=== PATIENT | female | born 1940 | race Caucasian/White ===

== ENCOUNTER → 2016-08-21 | Outpatient (REF) | payer MEDICARE ==
[2016-08-21 20:29] LABS: FREE T4 0.67 NG/DL (0.76-1.46)
== END ==
LOC: M LABDRWAD 19:41
PROVIDERS: ATTEND Physician Assistant Medical
DX: E05.20 Thyrotoxicosis with toxic multinodular goiter without thyrotoxic crisis or storm (principal); Z79.01 Long term (current) use of anticoagulants

== ENCOUNTER → 2016-08-22 | Outpatient (REF) | payer MEDICARE ==
[2016-08-22 19:14] LABS: PERCENT SATURATION 7.1 % (13.2-37.4)
== END ==
LOC: M LAB REF 17:07
PROVIDERS: ATTEND Internal Medicine Nephrology
DX: Z90.6 Acquired absence of other parts of urinary tract (principal); D64.9 Anemia, unspecified; Z79.899 Other long term (current) drug therapy

== ENCOUNTER → 2016-08-25 | Outpatient (CLI) | payer MEDICARE ==
--- NOTE | 2016-08-25 13:47 | REP ---
RENAL ULTRASOUND: Real-time sonographic evaluation of the kidneys is performed. The kidneys are normal in size and echotexture, right kidney measuring 9.2 x 5.3 x 3.3 cm and the left kidney 8.3 x 4.6 x 4.1 cm. There is no hydronephrosis bilaterally. Vascular calcifications are seen in both kidneys. There is no renal mass identified. Incidental note is made of gallstones in the gallbladder. The common bile duct is mildly dilated at 9 mm. IMPRESSION: No hydronephrosis. Gallstones are seen in the gallbladder. The common bile duct is mildly dilated at 9 mm. Please correlate clinically. Signed by Rafy Alston MD 08/25/2016 05:02 P
== END ==
LOC: M RAD 12:37
PROVIDERS: ATTEND Internal Medicine Nephrology
DX: N18.3 Chronic kidney disease, stage 3 (moderate) (principal); E87.5 Hyperkalemia; K80.20 Calculus of gallbladder without cholecystitis without obstruction

== ENCOUNTER 2016-09-06 08:40 | Outpatient (CLI) | payer MEDICARE ==
[2016-09-06] MEDS ORDERED: IRON SUCROSE 25 MG in NS 50 ML IV ONE (09:15)
[2016-09-06] MEDS ORDERED: IRON SUCROSE 475 MG in NS 250 ML IV ONE (10:15)
== END 2016-09-06 13:45 | disposition home or self-care (01) ==
LOC: M INFU 08:40
PROVIDERS: ATTEND Internal Medicine Nephrology
DX: D50.9 Iron deficiency anemia, unspecified (principal)
CPT/HCPCS: 96365; 96366; J1756

== ENCOUNTER → 2016-09-25 | Outpatient (REF) | payer MEDICARE ==
[2016-09-25 14:04] LABS: FREE T4 1.48 NG/DL (0.76-1.46)
== END ==
LOC: M LABDRWAD 13:02
PROVIDERS: ATTEND Physician Assistant Medical
DX: E05.20 Thyrotoxicosis with toxic multinodular goiter without thyrotoxic crisis or storm (principal)

== ENCOUNTER → 2016-10-23 | Outpatient (REF) | payer MEDICARE ==
[2016-10-23 13:16] LABS: FREE T4 3.17 NG/DL (0.76-1.46)
== END ==
LOC: M LABDRWAD 12:26
PROVIDERS: ATTEND Physician Assistant Medical
DX: E05.20 Thyrotoxicosis with toxic multinodular goiter without thyrotoxic crisis or storm (principal)

== ENCOUNTER → 2016-11-30 | Outpatient (REF) | payer MEDICARE ==
[2016-11-30 12:39] LABS: MEAN CORPUSCULAR HEMOGLOBIN 28.5 pg (27.0-33.0); MEAN CORPUSCULAR HGB CONC 31.3 g/dl (32.0-36.5); MEAN CORPUSCULAR VOLUME 91.2 fl (80.0-96.0); PLATELET COUNT, AUTOMATED 203 k/mm3 (150-450); RED CELL DISTRIBUTION WIDTH 15.3 % (11.5-14.5); WHITE BLOOD COUNT 4.5 K/mm3 (4.0-10.0)
[2016-11-30 12:52] LABS: INR 3.34
[2016-11-30 13:00] LABS: BASOPHILS 1 % (0-4); EOSINOPHILS 5 % (0-5)
[2016-11-30 13:02] LABS: ALBUMIN 3.7 GM/DL (3.2-5.2); ALBUMIN/GLOBULIN RATIO 1.16 (1.00-1.93); BILIRUBIN,TOTAL 0.6 MG/DL (0.2-1.0); CALCIUM LEVEL 8.4 MG/DL (8.8-10.2); CREATININE FOR GFR 1.27 MG/DL (0.55-1.02); GLOMERULAR FILTRATION RATE 43.6 (>39); POTASSIUM SERUM 4.4 MEQ/L (3.5-5.1); TOTAL PROTEIN 6.9 GM/DL (6.4-8.2)
== END ==
LOC: M SFHCADAM 07:52
PROVIDERS: ATTEND Physician Assistant Medical
DX: I10 Essential (primary) hypertension (principal); E87.5 Hyperkalemia

== ENCOUNTER → 2016-12-22 | Outpatient (REF) | payer MEDICARE ==
[2016-12-22 14:54] LABS: FREE T4 2.13 NG/DL (0.76-1.46)
== END ==
LOC: M LABDRWAD 13:13
PROVIDERS: ATTEND Internal Medicine Endocrinology, Diabetes & Metabolism
DX: E05.20 Thyrotoxicosis with toxic multinodular goiter without thyrotoxic crisis or storm (principal)

== ENCOUNTER → 2017-03-07 | Outpatient (REF) | payer MEDICARE ==
[2017-03-07 14:34] LABS: FREE T4 1.55 NG/DL (0.76-1.46)
== END ==
LOC: M LAB REF 12:25
PROVIDERS: ATTEND Internal Medicine Endocrinology, Diabetes & Metabolism
DX: E05.20 Thyrotoxicosis with toxic multinodular goiter without thyrotoxic crisis or storm (principal)

== ENCOUNTER → 2017-05-23 | Outpatient (REF) | payer MEDICARE ==
[2017-05-23 13:47] LABS: FREE T4 1.08 NG/DL (0.76-1.46)
== END ==
LOC: M LABDRWAD 12:26
PROVIDERS: ATTEND Internal Medicine Endocrinology, Diabetes & Metabolism
DX: E05.20 Thyrotoxicosis with toxic multinodular goiter without thyrotoxic crisis or storm (principal); Z79.01 Long term (current) use of anticoagulants

== ENCOUNTER → 2017-05-23 | Outpatient (REF) | payer MEDICARE ==
[2017-05-23 12:49] LABS: INR 2.32
== END ==
LOC: M SFHCADAM 10:31
PROVIDERS: ATTEND Physician Assistant Medical
DX: Z79.01 Long term (current) use of anticoagulants (principal)

== ENCOUNTER 2017-06-06 10:54 | Inpatient (IN) | payer MEDICARE ==
[2017-06-06] MEDS: METOPROLOL 5 MG/5 ML VIAL IV ×6 (11:55→12:10)
[2017-06-06 11:57] LABS: BASO # 0.1 10^3/uL (0.0-0.2); BASO % 1.2 % (0.0-1.0); EOS # 0.1 10^3/uL (0.0-0.50); EOS % 1.9 % (0.0-3.0); IMMATURE GRANULOCYTE % 0.3 % (0-0); LYMPH # 1.1 10^3/uL (1.5-4.5); LYMPH % 15.7 % (24.0-44.0); MEAN CORPUSCULAR HEMOGLOBIN 31.5 pg (27.0-33.0); MEAN CORPUSCULAR HGB CONC 33.1 g/dl (32.0-36.5); MEAN CORPUSCULAR VOLUME 94.9 fl (80.0-96.0); MONO # 0.6 10^3/uL (0.0-0.8); MONO % 7.9 % (0.0-5.0); NEUTROPHILS # 5.1 10^3/uL (1.8-7.7); PLATELET COUNT, AUTOMATED 279 10^3/uL (150-450); RED CELL DISTRIBUTION WIDTH 15.9 % (11.5-14.5)
[2017-06-06 12:07] LABS: INR 2.09
[2017-06-06 12:22] LABS: LACTIC ACID SEPSIS PROTOCOL 1.5 MMOL/L (0.4-2.0)
[2017-06-06 12:25] LABS: ANION GAP 10 MEQ/L (8-16); BLOOD UREA NITROGEN 26 MG/DL (7-18); CALCIUM LEVEL 8.5 MG/DL (8.8-10.2); CARBON DIOXIDE LEVEL 20 MEQ/L (21-32); CHLORIDE LEVEL 110 MEQ/L (98-107); CREATININE FOR GFR 1.35 MG/DL (0.55-1.02); GLOMERULAR FILTRATION RATE 40.5 (>39); GLUCOSE, FASTING 126 MG/DL (83-110); POTASSIUM SERUM 4.4 MEQ/L (3.5-5.1); SODIUM LEVEL 140 MEQ/L (136-145)
[2017-06-06 12:27] LABS: ALBUMIN 3.7 GM/DL (3.2-5.2); ALBUMIN/GLOBULIN RATIO 1.06 (1.00-1.93); ALKALINE PHOSPHATASE 113 U/L (45-117); ALT/SGPT 20 U/L (12-78); AST/SGOT 23 U/L (7-37); BILIRUBIN,DIRECT 0.3 MG/DL (0.0-0.2); BILIRUBIN,TOTAL 0.7 MG/DL (0.2-1.0); TOTAL PROTEIN 7.2 GM/DL (6.4-8.2)
[2017-06-06] MEDS: SODIUM CHLORIDE 0.9% 1000 ML IV (12:30)
[2017-06-06] MEDS: METOPROLOL TART 25 MG TABLET PO (12:31)
[2017-06-06] MEDS ORDERED: ONDANSETRON 4MG/2ML VIAL (J2405) IV (13:45)
[2017-06-06] MEDS: DIGOXIN INJ 0.5 MG/2 ML AMP (J1160) IV (13:48)
[2017-06-06] MEDS ORDERED: SLF 3 ML SYR IV (16:00)
[2017-06-06] MEDS: DIGOXIN 0.25 MG TAB PO (16:20)
[2017-06-06] MEDS: SENOKOT S TAB PO (21:00)
[2017-06-06] MEDS: FERROUS SULFATE 325MG TAB PO (21:58)
[2017-06-06] MEDS: FUROSEMIDE 20 MG/2 ML VIAL (J1940) IV (21:58)
[2017-06-06] MEDS: SLF 3 ML SYR IV (21:59)
[2017-06-07 04:19] LABS: BASO # 0.1 10^3/uL (0.0-0.2); EOS # 0.2 10^3/uL (0.0-0.50); EOS % 3.4 % (0.0-3.0); IMMATURE GRANULOCYTE % 0.4 % (0-0); LYMPH # 1.8 10^3/uL (1.5-4.5); LYMPH % 26.2 % (24.0-44.0); MEAN CORPUSCULAR HEMOGLOBIN 30.9 pg (27.0-33.0); MEAN CORPUSCULAR HGB CONC 31.9 g/dl (32.0-36.5); MEAN CORPUSCULAR VOLUME 96.9 fl (80.0-96.0); MONO # 0.8 10^3/uL (0.0-0.8); MONO % 11.6 % (0.0-5.0); NEUTROPHILS # 3.9 10^3/uL (1.8-7.7); NEUTROPHILS % 57.4 % (36.0-66.0); PLATELET COUNT, AUTOMATED 264 10^3/uL (150-450); RED CELL DISTRIBUTION WIDTH 15.6 % (11.5-14.5); WHITE BLOOD COUNT 6.8 10^3/uL (4.0-10.0)
[2017-06-07 04:30] LABS: INR 1.95
[2017-06-07 04:58] LABS: ALBUMIN 3.4 GM/DL (3.2-5.2); ALBUMIN/GLOBULIN RATIO 1.13 (1.00-1.93); ALKALINE PHOSPHATASE 127 U/L (45-117); ALT/SGPT 23 U/L (12-78); ANION GAP 11 MEQ/L (8-16); AST/SGOT 27 U/L (7-37); BILIRUBIN,TOTAL 0.6 MG/DL (0.2-1.0); BLOOD UREA NITROGEN 26 MG/DL (7-18); CALCIUM LEVEL 7.8 MG/DL (8.8-10.2); CARBON DIOXIDE LEVEL 22 MEQ/L (21-32); CHLORIDE LEVEL 111 MEQ/L (98-107); CREATININE FOR GFR 1.25 MG/DL (0.55-1.02); GLOMERULAR FILTRATION RATE 44.2 (>39); GLUCOSE, FASTING 83 MG/DL (83-110); POTASSIUM SERUM 4.2 MEQ/L (3.5-5.1); SODIUM LEVEL 144 MEQ/L (136-145); TOTAL PROTEIN 6.4 GM/DL (6.4-8.2)
[2017-06-07 05:08] LABS: DIGOXIN LEVEL 1.5 NG/ML (0.5-2.0)
[2017-06-07] MEDS: SLF 3 ML SYR IV ×3 (06:00→21:42)
[2017-06-07] MEDS: METOPROLOL 5 MG/5 ML VIAL IV ×2 (09:14→09:31)
[2017-06-07] MEDS: DIGOXIN INJ 0.5 MG/2 ML AMP (J1160) IV (09:30)
[2017-06-07] MEDS: CYANOCOBALAMIN 500 MCG TAB PO (09:31)
[2017-06-07] MEDS: SENOKOT S TAB PO ×2 (09:31→17:09)
[2017-06-07] MEDS: METOPROLOL TART 50 MG TAB PO ×2 (11:02→21:42)
[2017-06-07] MEDS: FERROUS SULFATE 325MG TAB PO (21:41)
[2017-06-08] MEDS: SLF 3 ML SYR IV ×3 (05:16→20:44)
[2017-06-08 05:40] LABS: BASO # 0.1 10^3/uL (0.0-0.2); BASO % 1.2 % (0.0-1.0); EOS # 0.4 10^3/uL (0.0-0.50); EOS % 5.3 % (0.0-3.0); IMMATURE GRANULOCYTE % 0.3 % (0-0); LYMPH # 1.7 10^3/uL (1.5-4.5); LYMPH % 25.4 % (24.0-44.0); MEAN CORPUSCULAR HEMOGLOBIN 30.5 pg (27.0-33.0); MEAN CORPUSCULAR HGB CONC 31.6 g/dl (32.0-36.5); MEAN CORPUSCULAR VOLUME 96.7 fl (80.0-96.0); MONO # 0.9 10^3/uL (0.0-0.8); MONO % 13.5 % (0.0-5.0); NEUTROPHILS # 3.6 10^3/uL (1.8-7.7); NEUTROPHILS % 54.3 % (36.0-66.0); PLATELET COUNT, AUTOMATED 262 10^3/uL (150-450); RED CELL DISTRIBUTION WIDTH 15.6 % (11.5-14.5); WHITE BLOOD COUNT 6.7 10^3/uL (4.0-10.0)
[2017-06-08 05:59] LABS: INR 1.88
[2017-06-08 06:03] LABS: ALBUMIN 3.2 GM/DL (3.2-5.2); ALBUMIN/GLOBULIN RATIO 0.91 (1.00-1.93); ALKALINE PHOSPHATASE 109 U/L (45-117); ALT/SGPT 19 U/L (12-78); ANION GAP 7 MEQ/L (8-16); AST/SGOT 17 U/L (7-37); BILIRUBIN,TOTAL 0.5 MG/DL (0.2-1.0); BLOOD UREA NITROGEN 20 MG/DL (7-18); CARBON DIOXIDE LEVEL 23 MEQ/L (21-32); CHLORIDE LEVEL 112 MEQ/L (98-107); CREATININE FOR GFR 1.07 MG/DL (0.55-1.02); GLOMERULAR FILTRATION RATE 52.9 (>39); GLUCOSE, FASTING 84 MG/DL (83-110); POTASSIUM SERUM 4.1 MEQ/L (3.5-5.1); SODIUM LEVEL 142 MEQ/L (136-145); TOTAL PROTEIN 6.7 GM/DL (6.4-8.2)
[2017-06-08] MEDS: CYANOCOBALAMIN 500 MCG TAB PO (08:51)
[2017-06-08] MEDS: METOPROLOL TART 50 MG TAB PO ×3 (08:51→20:43)
[2017-06-08] MEDS: SENOKOT S TAB PO ×2 (08:53→20:44)
[2017-06-08] MEDS: PNEUMOCOCCAL VACCINE 0.5ML SYRINGE(90732) PNEUMOVAX 23 IM (08:53)
[2017-06-08] MEDS: DIGOXIN 0.125 MG TAB PO (14:44)
[2017-06-08] MEDS: WARFARIN SOD 5 MG TAB PO (16:12)
[2017-06-08] MEDS: FERROUS SULFATE 325MG TAB PO (20:43)
[2017-06-09 05:09] LABS: BASO # 0.1 10^3/uL (0.0-0.2); BASO % 0.7 % (0.0-1.0); EOS # 0.1 10^3/uL (0.0-0.50); EOS % 1.8 % (0.0-3.0); IMMATURE GRANULOCYTE % 0.3 % (0-0); LYMPH # 2.3 10^3/uL (1.5-4.5); MEAN CORPUSCULAR HGB CONC 32.2 g/dl (32.0-36.5); MONO # 0.8 10^3/uL (0.0-0.8); MONO % 10.7 % (0.0-5.0); NEUTROPHILS # 3.9 10^3/uL (1.8-7.7); NEUTROPHILS % 54.5 % (36.0-66.0); PLATELET COUNT, AUTOMATED 252 10^3/uL (150-450); RED CELL DISTRIBUTION WIDTH 15.4 % (11.5-14.5); WHITE BLOOD COUNT 7.2 10^3/uL (4.0-10.0)
[2017-06-09 05:20] LABS: INR 1.96
[2017-06-09 05:23] LABS: ALBUMIN/GLOBULIN RATIO 0.88 (1.00-1.93); ALKALINE PHOSPHATASE 94 U/L (45-117); ALT/SGPT 15 U/L (12-78); ANION GAP 8 MEQ/L (8-16); AST/SGOT 13 U/L (7-37); BILIRUBIN,TOTAL 0.7 MG/DL (0.2-1.0); BLOOD UREA NITROGEN 16 MG/DL (7-18); CALCIUM LEVEL 7.6 MG/DL (8.8-10.2); CARBON DIOXIDE LEVEL 22 MEQ/L (21-32); CHLORIDE LEVEL 111 MEQ/L (98-107); CREATININE FOR GFR 1.01 MG/DL (0.55-1.02); GLOMERULAR FILTRATION RATE 56.6 (>39); GLUCOSE, FASTING 89 MG/DL (83-110); SODIUM LEVEL 141 MEQ/L (136-145); TOTAL PROTEIN 6.4 GM/DL (6.4-8.2)
[2017-06-09] MEDS: SLF 3 ML SYR IV ×3 (06:00→20:53)
[2017-06-09] MEDS: CYANOCOBALAMIN 500 MCG TAB PO (08:55)
[2017-06-09] MEDS: METOPROLOL TART 50 MG TAB PO ×3 (08:55→20:52)
[2017-06-09] MEDS: DIGOXIN 0.125 MG TAB PO (08:55)
[2017-06-09] MEDS: SENOKOT S TAB PO ×2 (08:56→20:53)
[2017-06-09 09:57] LABS: DIGOXIN LEVEL 1.5 NG/ML (0.5-2.0); FREE T4 1.34 NG/DL (0.76-1.46)
[2017-06-09] MEDS: WARFARIN SOD 5 MG TAB PO (16:55)
[2017-06-09] MEDS: FERROUS SULFATE 325MG TAB PO (20:53)
[2017-06-10 04:56] LABS: BASO % 0.7 % (0.0-1.0); EOS # 0.2 10^3/uL (0.0-0.50); EOS % 3.4 % (0.0-3.0); IMMATURE GRANULOCYTE % 0.4 % (0-0); LYMPH # 1.9 10^3/uL (1.5-4.5); LYMPH % 32.7 % (24.0-44.0); MEAN CORPUSCULAR HGB CONC 31.9 g/dl (32.0-36.5); MONO # 0.7 10^3/uL (0.0-0.8); MONO % 12.2 % (0.0-5.0); NEUTROPHILS # 2.9 10^3/uL (1.8-7.7); NEUTROPHILS % 50.6 % (36.0-66.0); PLATELET COUNT, AUTOMATED 267 10^3/uL (150-450); RED CELL DISTRIBUTION WIDTH 15.7 % (11.5-14.5); WHITE BLOOD COUNT 5.7 10^3/uL (4.0-10.0)
[2017-06-10 05:06] LABS: INR 1.96
[2017-06-10 05:17] LABS: ALBUMIN/GLOBULIN RATIO 0.86 (1.00-1.93); ALKALINE PHOSPHATASE 90 U/L (45-117); ALT/SGPT 13 U/L (12-78); ANION GAP 9 MEQ/L (8-16); AST/SGOT 11 U/L (7-37); BILIRUBIN,TOTAL 0.5 MG/DL (0.2-1.0); BLOOD UREA NITROGEN 22 MG/DL (7-18); CALCIUM LEVEL 7.8 MG/DL (8.8-10.2); CARBON DIOXIDE LEVEL 21 MEQ/L (21-32); CHLORIDE LEVEL 111 MEQ/L (98-107); GLOMERULAR FILTRATION RATE 57.2 (>39); GLUCOSE, FASTING 85 MG/DL (83-110); POTASSIUM SERUM 4.1 MEQ/L (3.5-5.1); SODIUM LEVEL 141 MEQ/L (136-145); TOTAL PROTEIN 6.5 GM/DL (6.4-8.2)
[2017-06-10] MEDS: SLF 3 ML SYR IV ×2 (05:40→14:00)
[2017-06-10] MEDS: DIGOXIN 0.125 MG TAB PO (08:36)
[2017-06-10] MEDS: CYANOCOBALAMIN 500 MCG TAB PO (08:37)
[2017-06-10] MEDS: METOPROLOL TART 50 MG TAB PO (08:37)
[2017-06-10] MEDS: SENOKOT S TAB PO (08:37)
[2017-06-12] MEDS ORDERED: WARFARIN SOD 2.5 MG TAB PO (17:00)
== END 2017-06-10 14:30 | disposition home or self-care (01) | DRG 309 ==
LOC: M ED 10:54 → M ED INP 13:43 → M PCU 15:20
DX: I48.91 Unspecified atrial fibrillation (principal); I13.0 Hypertensive heart and chronic kidney disease with heart failure and stage 1 through stage 4 chronic kidney disease, or unspecified chronic kidney disease; I50.813 Acute on chronic right heart failure; E05.90 Thyrotoxicosis, unspecified without thyrotoxic crisis or storm; N18.3 Chronic kidney disease, stage 3 (moderate); Z95.2 Presence of prosthetic heart valve; Z85.51 Personal history of malignant neoplasm of bladder; Z98.41 Cataract extraction status, right eye; Z98.42 Cataract extraction status, left eye; Z90.710 Acquired absence of both cervix and uterus; Z79.01 Long term (current) use of anticoagulants; Z79.899 Other long term (current) drug therapy

== ENCOUNTER 2017-07-12 12:58 | Inpatient (IN) | payer OTHER, MEDICARE ==
[2017-07-12] MEDS ORDERED: ACETAMINOPHEN TAB 650MG DOSE (2X325MG) PO (13:30)
[2017-07-12 15:34] LABS: BASO # 0.1 10^3/uL (0.0-0.2); BASO % 0.8 % (0.0-1.0); EOS % 0.1 % (0.0-3.0); HEMATOCRIT 39.1 % (36.0-47.0); HEMOGLOBIN 12.3 g/dl (12.0-16.0); IMMATURE GRANULOCYTE # 0.2 10^3/uL (0-0); IMMATURE GRANULOCYTE % 1.5 % (0-0); LYMPH # 1.3 10^3/uL (1.5-4.5); LYMPH % 12.4 % (24.0-44.0); MEAN CORPUSCULAR HEMOGLOBIN 30.7 pg (27.0-33.0); MEAN CORPUSCULAR HGB CONC 31.5 g/dl (32.0-36.5); MEAN CORPUSCULAR VOLUME 97.5 fl (80.0-96.0); MONO # 0.5 10^3/uL (0.0-0.8); MONO % 4.7 % (0.0-5.0); NEUTROPHILS # 8.2 10^3/uL (1.8-7.7); NEUTROPHILS % 80.5 % (36.0-66.0); PLATELET COUNT, AUTOMATED 371 10^3/uL (150-450); RED BLOOD COUNT 4.01 10^6/uL (4.00-5.40); RED CELL DISTRIBUTION WIDTH 14.6 % (11.5-14.5); WHITE BLOOD COUNT 10.2 10^3/uL (4.0-10.0)
[2017-07-12 15:44] LABS: INR 3.08; PROTHROMBIN TIME 33.2 SECONDS (12.4-14.5)
[2017-07-12 15:58] LABS: ALBUMIN 3.5 GM/DL (3.2-5.2); ALKALINE PHOSPHATASE 137 U/L (45-117); ALT/SGPT 15 U/L (12-78); ANION GAP 10 MEQ/L (8-16); AST/SGOT 22 U/L (7-37); BILIRUBIN,TOTAL 0.5 MG/DL (0.2-1.0); BLOOD UREA NITROGEN 34 MG/DL (7-18); CALCIUM LEVEL 8.4 MG/DL (8.8-10.2); CARBON DIOXIDE LEVEL 22 MEQ/L (21-32); CHLORIDE LEVEL 108 MEQ/L (98-107); CPK CREATINE PHOSPHOKINASE 65 U/L (26-192); CREATININE FOR GFR 1.54 MG/DL (0.55-1.02); GLOMERULAR FILTRATION RATE 34.8 (>39); GLUCOSE, FASTING 132 MG/DL (70-100); MAGNESIUM LEVEL 1.8 MG/DL (1.8-2.4); SODIUM LEVEL 140 MEQ/L (136-145); TROPONIN I < 0.02 NG/ML (< 0.10)
[2017-07-12 15:59] LABS: CK-MB VALUE MASS 1.3 NG/ML (0.0-3.6)
[2017-07-12 16:00] LABS: POTASSIUM SERUM 5.3 MEQ/L (3.5-5.1)
[2017-07-12] MEDS: AMOXICILLIN 500 MG CAP PO ×2 (16:00→20:39)
[2017-07-12 16:02] LABS: FREE T4 1.39 NG/DL (0.76-1.46)
[2017-07-12] MEDS: FUROSEMIDE 20 MG TAB PO (16:17)
[2017-07-12] MEDS: FERROUS SULFATE 325MG TAB PO (16:17)
[2017-07-12] MEDS: METOPROLOL TART 50 MG TAB PO ×2 (16:18→20:39)
[2017-07-12] MEDS: DIGOXIN INJ 0.5 MG/2 ML AMP (J1160) IV (16:18)
[2017-07-12] MEDS ORDERED: ALBUTEROL SULFATE 2.5 MG/0.5 ML INH NEB SOLN INH (16:30)
[2017-07-12] MEDS ORDERED: DOXYCYCLINE HYCLATE 100 MG in D5W MINI-BAG PLUS 100 ML IV (16:45)
[2017-07-12] MEDS ORDERED: WARFARIN SOD 2.5 MG TAB PO (17:00)
[2017-07-12 17:24] LABS: NT-PRO BNP 17714 PG/ML (<450)
[2017-07-12] MEDS: FUROSEMIDE 40 MG/4 ML VIAL (J1940) IV ×2 (18:01→23:32)
[2017-07-12] MEDS: WARFARIN SOD 2.5 MG TAB PO (18:01)
[2017-07-12] MEDS: DOXYCYCLINE HYCLATE 100 MG in D5W MINI-BAG PLUS 100 ML IV (19:49)
[2017-07-12] MEDS: ALBUTEROL SULFATE 2.5 MG/0.5 ML INH NEB SOLN INH (20:57)
[2017-07-12] MEDS: CEFTRIAXONE SOD 2 GM in APPROPRIATE DILUENT 1 EA IV (21:08)
[2017-07-12 21:57] LABS: CK-MB VALUE MASS 1.3 NG/ML (0.0-3.6); CPK CREATINE PHOSPHOKINASE 72 U/L (26-192); TROPONIN I < 0.02 NG/ML (< 0.10)
[2017-07-13] MEDS: DOXYCYCLINE HYCLATE 100 MG in D5W MINI-BAG PLUS 100 ML IV ×2 (06:13→18:42)
[2017-07-13] MEDS: FUROSEMIDE 40 MG/4 ML VIAL (J1940) IV (06:13)
[2017-07-13 06:22] LABS: CK-MB VALUE MASS 1.5 NG/ML (0.0-3.6); CPK CREATINE PHOSPHOKINASE 71 U/L (26-192); MB/CK RELATIVE INDEX 2.11 (< OR =4); TROPONIN I < 0.02 NG/ML (< 0.10)
[2017-07-13] MEDS: ALBUTEROL SULFATE 2.5 MG/0.5 ML INH NEB SOLN INH ×4 (07:25→20:04)
[2017-07-13 07:50] LABS: HEMATOCRIT 38.2 % (36.0-47.0); HEMOGLOBIN 12.2 g/dl (12.0-16.0); MEAN CORPUSCULAR HEMOGLOBIN 30.2 pg (27.0-33.0); MEAN CORPUSCULAR HGB CONC 31.9 g/dl (32.0-36.5); MEAN CORPUSCULAR VOLUME 94.6 fl (80.0-96.0); PLATELET COUNT, AUTOMATED 363 10^3/uL (150-450); RED BLOOD COUNT 4.04 10^6/uL (4.00-5.40); RED CELL DISTRIBUTION WIDTH 14.4 % (11.5-14.5); WHITE BLOOD COUNT 10.4 10^3/uL (4.0-10.0)
[2017-07-13 08:00] LABS: ALBUMIN 3.3 GM/DL (3.2-5.2); ALBUMIN/GLOBULIN RATIO 0.85 (1.00-1.93); ALKALINE PHOSPHATASE 132 U/L (45-117); ALT/SGPT 14 U/L (12-78); ANION GAP 11 MEQ/L (8-16); AST/SGOT 19 U/L (7-37); BILIRUBIN,TOTAL 0.4 MG/DL (0.2-1.0); BLOOD UREA NITROGEN 31 MG/DL (7-18); CALCIUM LEVEL 8.7 MG/DL (8.8-10.2); CARBON DIOXIDE LEVEL 25 MEQ/L (21-32); CHLORIDE LEVEL 104 MEQ/L (98-107); CREATININE FOR GFR 1.51 MG/DL (0.55-1.02); GLOMERULAR FILTRATION RATE 35.6 (>39); GLUCOSE, FASTING 92 MG/DL (70-100); POTASSIUM SERUM 3.3 MEQ/L (3.5-5.1); SODIUM LEVEL 140 MEQ/L (136-145); TOTAL PROTEIN 7.2 GM/DL (6.4-8.2)
[2017-07-13] MEDS: CYANOCOBALAMIN 500 MCG TAB PO (08:42)
[2017-07-13] MEDS: CALCITRIOL 0.25 MCG CAP (S0169) PO (08:42)
[2017-07-13] MEDS: DIGOXIN 0.125 MG TAB PO (08:43)
[2017-07-13] MEDS: FERROUS SULFATE 325MG TAB PO (08:43)
[2017-07-13] MEDS: METOPROLOL TART 50 MG TAB PO ×3 (08:44→21:00)
[2017-07-13 11:52] LABS: INR 2.89; PROTHROMBIN TIME 31.5 SECONDS (12.4-14.5)
[2017-07-13] MEDS: WARFARIN SOD 2.5 MG TAB PO (16:21)
[2017-07-13] MEDS ORDERED: WARFARIN SOD 5 MG TAB PO (17:00)
[2017-07-13] MEDS: POTASSIUM CHLORIDE 10 MEQ SR TABLET PO ×2 (18:42→22:14)
[2017-07-13] MEDS: CEFTRIAXONE SOD 2 GM in APPROPRIATE DILUENT 1 EA IV (19:57)
[2017-07-13] MEDS: METOPROLOL TART 25 MG TABLET PO (23:02)
[2017-07-14 04:23] LABS: HEMATOCRIT 37.7 % (36.0-47.0); HEMOGLOBIN 12.2 g/dl (12.0-16.0); MEAN CORPUSCULAR HEMOGLOBIN 30.7 pg (27.0-33.0); MEAN CORPUSCULAR HGB CONC 32.4 g/dl (32.0-36.5); PLATELET COUNT, AUTOMATED 323 10^3/uL (150-450); RED BLOOD COUNT 3.97 10^6/uL (4.00-5.40); RED CELL DISTRIBUTION WIDTH 14.5 % (11.5-14.5); WHITE BLOOD COUNT 8.9 10^3/uL (4.0-10.0)
[2017-07-14 04:38] LABS: INR 3.07; PROTHROMBIN TIME 33.1 SECONDS (12.4-14.5)
[2017-07-14 04:45] LABS: ALBUMIN 3.1 GM/DL (3.2-5.2); ALBUMIN/GLOBULIN RATIO 0.84 (1.00-1.93); ALKALINE PHOSPHATASE 110 U/L (45-117); ALT/SGPT 14 U/L (12-78); ANION GAP 6 MEQ/L (8-16); AST/SGOT 18 U/L (7-37); BILIRUBIN,TOTAL 0.4 MG/DL (0.2-1.0); BLOOD UREA NITROGEN 33 MG/DL (7-18); CALCIUM LEVEL 8.1 MG/DL (8.8-10.2); CARBON DIOXIDE LEVEL 27 MEQ/L (21-32); CHLORIDE LEVEL 109 MEQ/L (98-107); CREATININE FOR GFR 1.47 MG/DL (0.55-1.02); GLOMERULAR FILTRATION RATE 36.7 (>39); GLUCOSE, FASTING 101 MG/DL (70-100); POTASSIUM SERUM 4.3 MEQ/L (3.5-5.1); SODIUM LEVEL 142 MEQ/L (136-145); TOTAL PROTEIN 6.8 GM/DL (6.4-8.2)
[2017-07-14] MEDS: DOXYCYCLINE HYCLATE 100 MG in D5W MINI-BAG PLUS 100 ML IV ×2 (06:18→19:00)
[2017-07-14] MEDS: ALBUTEROL SULFATE 2.5 MG/0.5 ML INH NEB SOLN INH ×5 (08:01→21:19)
[2017-07-14] MEDS: CALCITRIOL 0.25 MCG CAP (S0169) PO (09:59)
[2017-07-14] MEDS: CYANOCOBALAMIN 500 MCG TAB PO (09:59)
[2017-07-14] MEDS: METOPROLOL TART 50 MG TAB PO ×3 (09:59→18:44)
[2017-07-14] MEDS: DIGOXIN 0.125 MG TAB PO (09:59)
[2017-07-14] MEDS: FERROUS SULFATE 325MG TAB PO (09:59)
[2017-07-14] MEDS: FUROSEMIDE 20 MG TAB PO (10:00)
[2017-07-14] MEDS ORDERED: SLF 3 ML SYR IV (11:45)
[2017-07-14] MEDS: SLF 3 ML SYR IV ×2 (14:00→20:08)
[2017-07-14] MEDS ORDERED: AMIODARONE 200 MG TAB (PACERONE) PO (16:00)
[2017-07-14] MEDS: AMIODARONE 200 MG TAB (PACERONE) PO (16:08)
[2017-07-14] MEDS: CEFTRIAXONE SOD 2 GM in APPROPRIATE DILUENT 1 EA IV (20:05)
[2017-07-15 03:40] LABS: HEMATOCRIT 35.6 % (36.0-47.0); HEMOGLOBIN 11.3 g/dl (12.0-16.0); MEAN CORPUSCULAR HEMOGLOBIN 30.5 pg (27.0-33.0); MEAN CORPUSCULAR HGB CONC 31.7 g/dl (32.0-36.5); MEAN CORPUSCULAR VOLUME 96.2 fl (80.0-96.0); PLATELET COUNT, AUTOMATED 295 10^3/uL (150-450); WHITE BLOOD COUNT 8.1 10^3/uL (4.0-10.0)
[2017-07-15 03:57] LABS: ANION GAP 8 MEQ/L (8-16); BLOOD UREA NITROGEN 35 MG/DL (7-18); CARBON DIOXIDE LEVEL 23 MEQ/L (21-32); CHLORIDE LEVEL 110 MEQ/L (98-107); CREATININE FOR GFR 1.34 MG/DL (0.55-1.02); GLOMERULAR FILTRATION RATE 40.8 (>39); GLUCOSE, FASTING 107 MG/DL (70-100); MAGNESIUM LEVEL 1.7 MG/DL (1.8-2.4); SODIUM LEVEL 141 MEQ/L (136-145)
[2017-07-15] MEDS: DOXYCYCLINE HYCLATE 100 MG in D5W MINI-BAG PLUS 100 ML IV (06:22)
[2017-07-15] MEDS: SLF 3 ML SYR IV ×3 (06:22→22:35)
[2017-07-15] MEDS: ALBUTEROL SULFATE 2.5 MG/0.5 ML INH NEB SOLN INH ×4 (06:32→20:00)
[2017-07-15] MEDS: FERROUS SULFATE 325MG TAB PO (09:34)
[2017-07-15] MEDS: CYANOCOBALAMIN 500 MCG TAB PO (09:34)
[2017-07-15] MEDS: CALCITRIOL 0.25 MCG CAP (S0169) PO (09:34)
[2017-07-15] MEDS: AMIODARONE 200 MG TAB (PACERONE) PO (09:34)
[2017-07-15] MEDS: FUROSEMIDE 20 MG TAB PO (09:34)
[2017-07-15] MEDS: METOPROLOL TART 50 MG TAB PO ×3 (09:35→20:45)
[2017-07-15 11:06] LABS: INR 3.04; PROTHROMBIN TIME 32.8 SECONDS (12.4-14.5)
[2017-07-15] MEDS: WARFARIN SOD 2.5 MG TAB PO (17:00)
[2017-07-15] MEDS: MAG SULF 1GM/100ML (MAG RUN) 1 GM in APPROPRIATE DILUENT 1 EA IV (20:45)
[2017-07-15] MEDS: DOXYCYCLINE HYCLATE 100 MG TAB PO (22:35)
[2017-07-16 05:19] LABS: HEMATOCRIT 37.3 % (36.0-47.0); HEMOGLOBIN 11.9 g/dl (12.0-16.0); MEAN CORPUSCULAR HEMOGLOBIN 30.4 pg (27.0-33.0); MEAN CORPUSCULAR HGB CONC 31.9 g/dl (32.0-36.5); MEAN CORPUSCULAR VOLUME 95.4 fl (80.0-96.0); PLATELET COUNT, AUTOMATED 313 10^3/uL (150-450); RED BLOOD COUNT 3.91 10^6/uL (4.00-5.40); RED CELL DISTRIBUTION WIDTH 15.2 % (11.5-14.5); WHITE BLOOD COUNT 7.2 10^3/uL (4.0-10.0)
[2017-07-16] MEDS: SLF 3 ML SYR IV ×3 (05:29→20:49)
[2017-07-16 05:45] LABS: ANION GAP 8 MEQ/L (8-16); BLOOD UREA NITROGEN 34 MG/DL (7-18); CALCIUM LEVEL 8.3 MG/DL (8.8-10.2); CARBON DIOXIDE LEVEL 25 MEQ/L (21-32); CHLORIDE LEVEL 108 MEQ/L (98-107); CREATININE FOR GFR 1.11 MG/DL (0.55-1.02); FREE T4 1.07 NG/DL (0.76-1.46); GLOMERULAR FILTRATION RATE 50.7 (>39); GLUCOSE, FASTING 93 MG/DL (70-100); MAGNESIUM LEVEL 2.1 MG/DL (1.8-2.4); POTASSIUM SERUM 3.8 MEQ/L (3.5-5.1); SODIUM LEVEL 141 MEQ/L (136-145)
[2017-07-16] MEDS: ALBUTEROL SULFATE 2.5 MG/0.5 ML INH NEB SOLN INH ×4 (07:12→20:00)
[2017-07-16] MEDS: CALCITRIOL 0.25 MCG CAP (S0169) PO (08:47)
[2017-07-16] MEDS: FERROUS SULFATE 325MG TAB PO (08:47)
[2017-07-16] MEDS: METOPROLOL TART 50 MG TAB PO ×3 (08:48→20:45)
[2017-07-16] MEDS: FUROSEMIDE 20 MG TAB PO (08:48)
[2017-07-16] MEDS: AMIODARONE 200 MG TAB (PACERONE) PO (08:48)
[2017-07-16] MEDS: DOXYCYCLINE HYCLATE 100 MG TAB PO ×2 (08:48→20:46)
[2017-07-16] MEDS: CYANOCOBALAMIN 500 MCG TAB PO (08:48)
[2017-07-16] MEDS: WARFARIN SOD 2.5 MG TAB PO (16:31)
[2017-07-17] MEDS: SLF 3 ML SYR IV ×3 (06:04→21:13)
[2017-07-17 06:19] LABS: HEMATOCRIT 36.3 % (36.0-47.0); HEMOGLOBIN 11.5 g/dl (12.0-16.0); MEAN CORPUSCULAR HEMOGLOBIN 30.7 pg (27.0-33.0); MEAN CORPUSCULAR HGB CONC 31.7 g/dl (32.0-36.5); MEAN CORPUSCULAR VOLUME 97.1 fl (80.0-96.0); PLATELET COUNT, AUTOMATED 282 10^3/uL (150-450); RED BLOOD COUNT 3.74 10^6/uL (4.00-5.40); RED CELL DISTRIBUTION WIDTH 15.1 % (11.5-14.5); WHITE BLOOD COUNT 6.4 10^3/uL (4.0-10.0)
[2017-07-17 06:30] LABS: INR 1.89; PROTHROMBIN TIME 22.3 SECONDS (12.4-14.5)
[2017-07-17 06:32] LABS: ANION GAP 6 MEQ/L (8-16); BLOOD UREA NITROGEN 36 MG/DL (7-18); CALCIUM LEVEL 8.3 MG/DL (8.8-10.2); CARBON DIOXIDE LEVEL 25 MEQ/L (21-32); CHLORIDE LEVEL 109 MEQ/L (98-107); CREATININE FOR GFR 1.25 MG/DL (0.55-1.30); GLOMERULAR FILTRATION RATE 44.2 (>39); GLUCOSE, FASTING 88 MG/DL (70-100); POTASSIUM SERUM 3.9 MEQ/L (3.5-5.1); SODIUM LEVEL 140 MEQ/L (136-145)
[2017-07-17] MEDS: ALBUTEROL SULFATE 2.5 MG/0.5 ML INH NEB SOLN INH ×4 (08:00→19:46)
[2017-07-17] MEDS: CALCITRIOL 0.25 MCG CAP (S0169) PO (09:14)
[2017-07-17] MEDS: DOXYCYCLINE HYCLATE 100 MG TAB PO ×2 (09:14→21:13)
[2017-07-17] MEDS: CYANOCOBALAMIN 500 MCG TAB PO (09:14)
[2017-07-17] MEDS: FUROSEMIDE 20 MG TAB PO (09:15)
[2017-07-17] MEDS: AMIODARONE 200 MG TAB (PACERONE) PO (09:15)
[2017-07-17] MEDS: FERROUS SULFATE 325MG TAB PO (09:15)
[2017-07-17] MEDS: METOPROLOL TART 50 MG TAB PO ×2 (09:18→16:00)
[2017-07-17] MEDS: WARFARIN SOD 5 MG TAB PO (17:04)
[2017-07-17] MEDS: DIGOXIN 0.25 MG TAB PO (17:06)
[2017-07-17] MEDS: METOPROLOL TART 25 MG TABLET PO ×2 (19:31→23:56)
[2017-07-18 05:59] LABS: HEMATOCRIT 39.7 % (36.0-47.0); HEMOGLOBIN 11.9 g/dl (12.0-16.0); MEAN CORPUSCULAR HEMOGLOBIN 30.7 pg (27.0-33.0); MEAN CORPUSCULAR VOLUME 102.6 fl (80.0-96.0); PLATELET COUNT, AUTOMATED 250 10^3/uL (150-450); RED BLOOD COUNT 3.87 10^6/uL (4.00-5.40); RED CELL DISTRIBUTION WIDTH 15.3 % (11.5-14.5); WHITE BLOOD COUNT 6.2 10^3/uL (4.0-10.0)
[2017-07-18 06:10] LABS: INR 1.67; PROTHROMBIN TIME 20.2 SECONDS (12.4-14.5)
[2017-07-18] MEDS: METOPROLOL TART 25 MG TABLET PO ×3 (06:20→18:00)
[2017-07-18] MEDS: SLF 3 ML SYR IV ×3 (06:20→21:06)
[2017-07-18 06:38] LABS: ANION GAP 7 MEQ/L (8-16); BLOOD UREA NITROGEN 41 MG/DL (7-18); CALCIUM LEVEL 8.2 MG/DL (8.8-10.2); CARBON DIOXIDE LEVEL 25 MEQ/L (21-32); CHLORIDE LEVEL 110 MEQ/L (98-107); DIGOXIN LEVEL 1.3 NG/ML (0.5-2.0); FREE T3 2.6 PG/ML (2.2-4.0); FREE T4 1.05 NG/DL (0.76-1.46); GLOMERULAR FILTRATION RATE 46.4 (>39); GLUCOSE, FASTING 98 MG/DL (70-100); POTASSIUM SERUM 4.4 MEQ/L (3.5-5.1); SODIUM LEVEL 142 MEQ/L (136-145)
[2017-07-18] MEDS: ALBUTEROL SULFATE 2.5 MG/0.5 ML INH NEB SOLN INH ×4 (08:24→21:16)
[2017-07-18] MEDS: CALCITRIOL 0.25 MCG CAP (S0169) PO (09:31)
[2017-07-18] MEDS: FUROSEMIDE 20 MG TAB PO (09:32)
[2017-07-18] MEDS: CYANOCOBALAMIN 500 MCG TAB PO (09:32)
[2017-07-18] MEDS: DIGOXIN 0.125 MG TAB PO (09:32)
[2017-07-18] MEDS: DOXYCYCLINE HYCLATE 100 MG TAB PO ×2 (09:32→21:05)
[2017-07-18] MEDS: FERROUS SULFATE 325MG TAB PO (09:32)
[2017-07-18] MEDS: WARFARIN SOD 5 MG TAB PO (16:27)
[2017-07-19 05:46] LABS: HEMATOCRIT 37.1 % (36.0-47.0); HEMOGLOBIN 11.8 g/dl (12.0-16.0); MEAN CORPUSCULAR HEMOGLOBIN 30.9 pg (27.0-33.0); MEAN CORPUSCULAR HGB CONC 31.8 g/dl (32.0-36.5); MEAN CORPUSCULAR VOLUME 97.1 fl (80.0-96.0); PLATELET COUNT, AUTOMATED 252 10^3/uL (150-450); RED BLOOD COUNT 3.82 10^6/uL (4.00-5.40); RED CELL DISTRIBUTION WIDTH 15.1 % (11.5-14.5); WHITE BLOOD COUNT 5.7 10^3/uL (4.0-10.0)
[2017-07-19] MEDS: METOPROLOL TART 25 MG TABLET PO ×2 (05:49)
[2017-07-19] MEDS: SLF 3 ML SYR IV (05:49)
[2017-07-19 06:00] LABS: INR 1.73; PROTHROMBIN TIME 20.7 SECONDS (12.4-14.5)
[2017-07-19 06:08] LABS: ANION GAP 6 MEQ/L (8-16); BLOOD UREA NITROGEN 37 MG/DL (7-18); CALCIUM LEVEL 8.5 MG/DL (8.8-10.2); CARBON DIOXIDE LEVEL 26 MEQ/L (21-32); CHLORIDE LEVEL 110 MEQ/L (98-107); GLOMERULAR FILTRATION RATE 51.3 (>39); GLUCOSE, FASTING 95 MG/DL (70-100); POTASSIUM SERUM 4.2 MEQ/L (3.5-5.1); SODIUM LEVEL 142 MEQ/L (136-145)
[2017-07-19] MEDS: ALBUTEROL SULFATE 2.5 MG/0.5 ML INH NEB SOLN INH ×2 (08:00→11:14)
[2017-07-19] MEDS: CALCITRIOL 0.25 MCG CAP (S0169) PO (08:50)
[2017-07-19] MEDS: DIGOXIN 0.125 MG TAB PO (08:50)
[2017-07-19] MEDS: FERROUS SULFATE 325MG TAB PO (08:50)
[2017-07-19] MEDS: FUROSEMIDE 20 MG TAB PO (08:50)
[2017-07-19] MEDS: DOXYCYCLINE HYCLATE 100 MG TAB PO (08:51)
[2017-07-19] MEDS: CYANOCOBALAMIN 500 MCG TAB PO (08:51)
[2017-07-19] MEDS ORDERED: WARFARIN SOD 2.5 MG TAB PO (17:00)
== END 2017-07-19 11:50 | disposition home or self-care (01) | DRG 308 ==
LOC: M ED 12:58 → M ED INP 13:17 → M PCU 17:18
DX: I48.1 Persistent atrial fibrillation (principal); J18.9 Pneumonia, unspecified organism; I50.22 Chronic systolic (congestive) heart failure; I11.0 Hypertensive heart disease with heart failure; I27.20 Pulmonary hypertension, unspecified; I34.0 Nonrheumatic mitral (valve) insufficiency; E05.90 Thyrotoxicosis, unspecified without thyrotoxic crisis or storm; Z79.01 Long term (current) use of anticoagulants; Z79.899 Other long term (current) drug therapy; Z95.3 Presence of xenogenic heart valve; Z85.51 Personal history of malignant neoplasm of bladder

== ENCOUNTER → 2017-07-27 | Outpatient (REF) | payer OTHER ==
[2017-07-27 19:51] LABS: ANION GAP 8 MEQ/L (8-16); BLOOD UREA NITROGEN 29 MG/DL (7-18); CALCIUM LEVEL 8.4 MG/DL (8.8-10.2); CARBON DIOXIDE LEVEL 25 MEQ/L (21-32); CHLORIDE LEVEL 109 MEQ/L (98-107); CREATININE FOR GFR 1.12 MG/DL (0.55-1.30); DIGOXIN LEVEL 1.7 NG/ML (0.5-2.0); GLOMERULAR FILTRATION RATE 50.2 (>39); GLUCOSE, FASTING 91 MG/DL (70-100); POTASSIUM SERUM 4.4 MEQ/L (3.5-5.1); SODIUM LEVEL 142 MEQ/L (136-145)
== END ==
LOC: M LABDRWAD 18:47
DX: I48.91 Unspecified atrial fibrillation (principal)
CPT/HCPCS: 80162

== ENCOUNTER → 2017-08-20 | Outpatient (REF) | payer OTHER ==
[2017-08-20 14:30] LABS: FREE T4 0.76 NG/DL (0.76-1.46)
== END ==
LOC: M LABDRWAD 13:38
DX: E05.20 Thyrotoxicosis with toxic multinodular goiter without thyrotoxic crisis or storm (principal)
CPT/HCPCS: 84443

== ENCOUNTER 2017-11-06 15:59 | Emergency (ER) | payer OTHER ==
[2017-11-06] MEDS: GI COCKTAIL 50ML BTL(HYOSCYAMINE/MAALOX/LIDOCAINE VISCOUS)(1:3:1) PO (18:50)
== END 2017-11-06 18:56 | disposition home or self-care (01) ==
LOC: M ED 15:59
DX: R07.0 Pain in throat (principal); I48.91 Unspecified atrial fibrillation; I50.9 Heart failure, unspecified; I11.0 Hypertensive heart disease with heart failure; J44.9 Chronic obstructive pulmonary disease, unspecified; E03.9 Hypothyroidism, unspecified; Z79.899 Other long term (current) drug therapy; Z79.01 Long term (current) use of anticoagulants
CPT/HCPCS: 70360

== ENCOUNTER → 2017-11-20 | Outpatient (REF) | payer OTHER ==
[2017-11-20 14:06] LABS: FREE T4 1.13 NG/DL (0.76-1.46)
== END ==
LOC: M SFHCADAM 08:50
DX: E05.20 Thyrotoxicosis with toxic multinodular goiter without thyrotoxic crisis or storm (principal)
CPT/HCPCS: 84443

== ENCOUNTER → 2017-12-06 | Outpatient (REF) | payer OTHER ==
[2017-12-06 12:56] LABS: BASO # 0.1 10^3/uL (0.0-0.2); BASO % 1.3 % (0.0-1.0); EOS # 0.2 10^3/uL (0.0-0.50); EOS % 3.6 % (0.0-3.0); HEMATOCRIT 38.4 % (36.0-47.0); HEMOGLOBIN 12.3 g/dl (12.0-15.5); IMMATURE GRANULOCYTE % 0.4 % (0-3.0); LYMPH # 1.4 10^3/uL (1.5-4.5); LYMPH % 25.8 % (24.0-44.0); MEAN CORPUSCULAR HEMOGLOBIN 30.6 pg (27.0-33.0); MEAN CORPUSCULAR VOLUME 95.5 fl (80.0-96.0); MONO # 0.5 10^3/uL (0.0-0.8); MONO % 9.3 % (0.0-5.0); NEUTROPHILS # 3.3 10^3/uL (1.8-7.7); NEUTROPHILS % 59.6 % (36.0-66.0); PLATELET COUNT, AUTOMATED 223 10^3/uL (150-450); RED BLOOD COUNT 4.02 10^6/uL (4.00-5.40); RED CELL DISTRIBUTION WIDTH 14.2 % (11.5-14.5); WHITE BLOOD COUNT 5.5 10^3/uL (4.0-10.0)
[2017-12-06 13:29] LABS: TOTAL 25(OH) VITAMIN D 18.1 NG/ML (30.0-100.0)
[2017-12-06 13:30] LABS: FOLATE 8.5 NG/ML; VITAMIN B12 LEVEL 567 PG/ML
[2017-12-06 13:37] LABS: ALBUMIN 3.8 GM/DL (3.2-5.2); ALBUMIN/GLOBULIN RATIO 1.15 (1.00-1.93); ALKALINE PHOSPHATASE 112 U/L (45-117); ALT/SGPT 41 U/L (12-78); ANION GAP 7 MEQ/L (8-16); AST/SGOT 45 U/L (7-37); BILIRUBIN,TOTAL 0.6 MG/DL (0.2-1.0); BLOOD UREA NITROGEN 26 MG/DL (7-18); CALCIUM LEVEL 8.2 MG/DL (8.8-10.2); CARBON DIOXIDE LEVEL 26 MEQ/L (21-32); CHLORIDE LEVEL 110 MEQ/L (98-107); CHOLESTEROL LEVEL 125 MG/DL (<200); CHOLESTEROL RISK RATIO 2.314 (<5); CREATININE FOR GFR 1.16 MG/DL (0.55-1.30); FERRITIN 198 NG/ML (8-252); GLOMERULAR FILTRATION RATE 48.2 (>39); GLUCOSE, FASTING 90 MG/DL (70-100); HDL CHOLESTEROL 54 MG/DL (>40); IRON (FE) 58 UG/DL (50-170); LDL CHOLESTEROL 52.8 MG/DL (<100); MAGNESIUM LEVEL 2.3 MG/DL (1.8-2.4); NON-HDL-C 71 MG/DL; PERCENT SATURATION 20.6 % (13.2-45.0); POTASSIUM SERUM 5.1 MEQ/L (3.5-5.1); SODIUM LEVEL 143 MEQ/L (136-145); TOTAL IRON BINDING CAPACITY 281 UG/DL (250-450); TOTAL PROTEIN 7.1 GM/DL (6.4-8.2); TRIGLYCERIDES LEVEL 91 MG/DL (<150)
[2017-12-06 13:47] LABS: ESTIMATED AVERAGE GLUCOSE 114 MG/DL (60-110); HEMOGLOBIN A1c 5.6 %
== END ==
LOC: M SFHCADAM 08:39
DX: E53.8 Deficiency of other specified B group vitamins (principal); E83.42 Hypomagnesemia; I50.22 Chronic systolic (congestive) heart failure; I11.0 Hypertensive heart disease with heart failure; Z79.899 Other long term (current) drug therapy
CPT/HCPCS: 82746

== ENCOUNTER → 2018-01-21 | Outpatient (CLI) | payer OTHER ==
[2018-01-21 12:53] LABS: FREE T4 1.16 NG/DL (0.76-1.46)
== END ==
LOC: M ADAMS 09:52
DX: E05.20 Thyrotoxicosis with toxic multinodular goiter without thyrotoxic crisis or storm (principal)
CPT/HCPCS: 84443

== ENCOUNTER → 2018-05-20 | Outpatient (REF) | payer OTHER ==
[2018-05-20 20:40] LABS: THYROID STIMULATING HORMONE 0.156 uIU/ML (0.358-3.740)
== END ==
LOC: M LABDRWAD 19:09
DX: E05.20 Thyrotoxicosis with toxic multinodular goiter without thyrotoxic crisis or storm (principal)
CPT/HCPCS: 84443

== ENCOUNTER → 2018-07-09 | Outpatient (REF) | payer MEDICARE ==
[~2018-07-09] MED LIST: AMOX500C PO; CALC1CAP31 PO; CART120C PO; DIGO0.12 PO; DOXY100T PO; DRIS50003 PO; FERR1TAB8 PO; FURO20TA2 PO; LISI2.5T5 PO; LOPR1TAB6 PO; METH10TA PO; METO100T5 PO; METO1TAB87 PO; TYLE325T5 PO; VITA500T53 PO; WARF-18 PO
[2018-07-09 12:49] LABS: BASO % 0.8 % (0.0-1.0); EOS # 0.1 10^3/uL (0.0-0.50); EOS % 1.7 % (0.0-3.0); HEMATOCRIT 37.7 % (36.0-47.0); HEMOGLOBIN 11.9 g/dl (12.0-15.5); LYMPH # 0.9 10^3/uL (1.5-4.5); LYMPH % 17.4 % (24.0-44.0); MEAN CORPUSCULAR HEMOGLOBIN 30.9 pg (27.0-33.0); MEAN CORPUSCULAR HGB CONC 31.6 g/dl (32.0-36.5); MEAN CORPUSCULAR VOLUME 97.9 fl (80.0-96.0); MONO # 0.6 10^3/uL (0.0-0.8); MONO % 10.5 % (0.0-5.0); NEUTROPHILS # 3.6 10^3/uL (1.8-7.7); NEUTROPHILS % 69.4 % (36.0-66.0); PLATELET COUNT, AUTOMATED 196 10^3/uL (150-450); RED BLOOD COUNT 3.85 10^6/uL (4.00-5.40); WHITE BLOOD COUNT 5.2 10^3/uL (4.0-10.0)
[2018-07-09 13:04] LABS: ALBUMIN 3.6 GM/DL (3.2-5.2); BILIRUBIN,TOTAL 0.5 MG/DL (0.2-1.0); CALCIUM LEVEL 8.5 MG/DL (8.8-10.2); CHOLESTEROL RISK RATIO 2.482 (<5); CREATININE FOR GFR 1.14 MG/DL (0.55-1.30); GLOMERULAR FILTRATION RATE 49.1 (>39); POTASSIUM SERUM 4.1 MEQ/L (3.5-5.1); TOTAL PROTEIN 7.1 GM/DL (6.4-8.2)
[2018-07-09 13:06] LABS: FOLATE 11.4 NG/ML; INR 1.84; PROTHROMBIN TIME 21.6 SECONDS (12.1-14.4); TOTAL 25(OH) VITAMIN D 17.5 NG/ML (30.0-100.0)
== END ==
LOC: M SFHCADAM 09:52
PROVIDERS: ATTEND Physician Assistant Medical
DX: I48.2 Chronic atrial fibrillation (principal); I50.22 Chronic systolic (congestive) heart failure; E53.8 Deficiency of other specified B group vitamins; E83.42 Hypomagnesemia
CPT/HCPCS: 80053; 80061; 82306; 82607; 82746; 83735; 85025; 85610; G0463

== ENCOUNTER → 2018-09-03 | Outpatient (REF) | payer MEDICARE ==
[2018-09-03 20:26] LABS: INR 4.12; PROTHROMBIN TIME 40.9 SECONDS (12.1-14.4)
== END ==
LOC: M SFHCADAM 13:21
PROVIDERS: ATTEND Physician Assistant Medical
DX: Z51.81 Encounter for therapeutic drug level monitoring (principal); Z79.01 Long term (current) use of anticoagulants; I48.2 Chronic atrial fibrillation
CPT/HCPCS: 85610; G0463

== ENCOUNTER → 2018-09-25 | Outpatient (REF) | payer MEDICARE ==
[~2018-09-25] MED LIST changes: +LISI-1046 PO; -LISI2.5T5 PO; +VITA500T17 PO; -VITA500T53 PO
[2018-09-25 13:15] LABS: FREE T4 1.3 NG/DL (0.76-1.46); THYROID STIMULATING HORMONE 0.235 uIU/ML (0.358-3.740)
== END ==
LOC: M LABDRWAD 12:19
PROVIDERS: ATTEND Nurse Practitioner Family
DX: E05.20 Thyrotoxicosis with toxic multinodular goiter without thyrotoxic crisis or storm (principal)

== ENCOUNTER → 2019-01-23 | Outpatient (REF) | payer MEDICARE ==
[2019-01-23 20:03] LABS: FREE T4 1.36 NG/DL (0.76-1.46); THYROID STIMULATING HORMONE 0.24 uIU/ML (0.358-3.740)
== END ==
LOC: M LABDRWAD 10:07
PROVIDERS: ATTEND Nurse Practitioner Family
DX: E05.20 Thyrotoxicosis with toxic multinodular goiter without thyrotoxic crisis or storm (principal)

== ENCOUNTER → 2019-07-30 | Outpatient (REF) | payer MEDICARE ==
[~2019-07-30] MED LIST changes: -DIGO0.12 PO; +DIGO0.123 PO
[2019-07-30 19:19] LABS: FREE T4 1.49 NG/DL (0.76-1.46); THYROID STIMULATING HORMONE 0.409 uIU/ML (0.358-3.740)
== END ==
LOC: M LABDRWAD 18:29 → M LAB REF 18:29
PROVIDERS: ATTEND Nurse Practitioner Family
DX: E05.20 Thyrotoxicosis with toxic multinodular goiter without thyrotoxic crisis or storm (principal)

== ENCOUNTER → 2020-01-29 | Outpatient (REF) | payer MEDICARE ==
[~2020-01-29] MED LIST changes: -LISI-1046 PO; +LISI2.5T2 PO
[2020-03-17 09:16] LABS: FREE T4 1.24 NG/DL (0.76-1.46); THYROID STIMULATING HORMONE 0.569 uIU/ML (0.358-3.740)
== END ==
LOC: M LABDRWAD 10:36
PROVIDERS: ATTEND Nurse Practitioner Family
DX: E05.20 Thyrotoxicosis with toxic multinodular goiter without thyrotoxic crisis or storm (principal)

== ENCOUNTER → 2020-02-17 | Outpatient (REF) | payer MEDICARE ==
[2020-02-17 14:20] LABS: BASO # 0.1 10^3/uL (0.0-0.2); BASO % 1.3 % (0.0-1.0); EOS # 0.2 10^3/uL (0.0-0.5); EOS % 3.3 % (0.0-3.0); HEMATOCRIT 43.5 % (36.0-47.0); HEMOGLOBIN 13.9 g/dl (12.0-15.5); LYMPH % 31.3 % (24.0-44.0); MEAN CORPUSCULAR HEMOGLOBIN 31.4 pg (27.0-33.0); MEAN CORPUSCULAR VOLUME 98.2 fl (80.0-96.0); MONO # 0.6 10^3/uL (0.0-0.8); NEUTROPHILS # 3.4 10^3/uL (1.5-8.5); NEUTROPHILS % 53.3 % (36.0-66.0); PLATELET COUNT, AUTOMATED 242 10^3/uL (150-450); RED BLOOD COUNT 4.43 10^6/uL (4.00-5.40); WHITE BLOOD COUNT 6.4 10^3/uL (4.0-10.0)
[2020-02-17 14:57] LABS: ALBUMIN 3.9 GM/DL (3.2-5.2); BILIRUBIN,TOTAL 0.5 MG/DL (0.2-1.0); CALCIUM LEVEL 8.9 MG/DL (8.8-10.2); CHOLESTEROL RISK RATIO 2.796 (<5); CREATININE FOR GFR 1.18 MG/DL (0.55-1.30); FREE T4 1.36 NG/DL (0.76-1.46); THYROID STIMULATING HORMONE 0.526 uIU/ML (0.358-3.740)
[2020-02-17 15:17] LABS: TOTAL 25(OH) VITAMIN D 21.3 NG/ML (30.0-100.0)
[2020-02-17 15:23] LABS: HEMOGLOBIN A1c 5.7 %
== END ==
LOC: M LABDRWAD 08:40
PROVIDERS: ATTEND Physician Assistant Medical
DX: E55.9 Vitamin D deficiency, unspecified (principal); I48.20 Chronic atrial fibrillation, unspecified; Z79.899 Other long term (current) drug therapy
CPT/HCPCS: 36415; 80053; 80061; 82306; 83036; 84439; 84443; 85025; 85610; G0463

== ENCOUNTER 2020-04-15 19:42 | Emergency (ER) | payer MEDICARE ==
[~2020-04-15] VITALS: Ht 149.9 cm; Wt 57.3 kg
[2020-04-15 21:09] LABS: BASO # 0.1 10^3/uL (0.0-0.2); BASO % 0.6 % (0.0-1.0); EOS % 0.2 % (0.0-3.0); HEMATOCRIT 40.2 % (36.0-47.0); HEMOGLOBIN 12.7 g/dl (12.0-15.5); LYMPH # 1.2 10^3/uL (1.5-5.0); LYMPH % 14.1 % (24.0-44.0); MEAN CORPUSCULAR HEMOGLOBIN 30.6 pg (27.0-33.0); MEAN CORPUSCULAR HGB CONC 31.6 g/dl (32.0-36.5); MEAN CORPUSCULAR VOLUME 96.9 fl (80.0-96.0); MONO # 0.5 10^3/uL (0.0-0.8); MONO % 6.5 % (0.0-5.0); NEUTROPHILS # 6.5 10^3/uL (1.5-8.5); NEUTROPHILS % 78.4 % (36.0-66.0); PLATELET COUNT, AUTOMATED 255 10^3/uL (150-450); RED BLOOD COUNT 4.15 10^6/uL (4.00-5.40); WHITE BLOOD COUNT 8.3 10^3/uL (4.0-10.0)
[2020-04-15 21:20] LABS: INR 2.06; PROTHROMBIN TIME 23.7 SECONDS (12.5-14.3)
[2020-04-15 21:46] LABS: ALBUMIN 3.9 GM/DL (3.2-5.2); BILIRUBIN,DIRECT 1.5 MG/DL (0.0-0.2); BILIRUBIN,TOTAL 2.2 MG/DL (0.2-1.0); CALCIUM LEVEL 9.1 MG/DL (8.8-10.2); CREATININE FOR GFR 1.17 MG/DL (0.55-1.30); DIGOXIN LEVEL 1.3 NG/ML (0.5-2.0); GLOMERULAR FILTRATION RATE 47.5 (>39); MAGNESIUM LEVEL 1.9 MG/DL (1.8-2.4); POTASSIUM SERUM 5.2 MEQ/L (3.5-5.1); TOTAL PROTEIN 7.9 GM/DL (6.4-8.2)
[2020-04-15] MEDS ORDERED: MORPHINE 4 MG/ML 1ML VIAL/SYRINGE (J2270) IV PRN (22:15)
[2020-04-15] MEDS ORDERED: ONDANSETRON 4MG/2ML VIAL IV ONE (22:15)
--- NOTE | 2020-04-15 22:44 | REPVR ---
PROCEDURE INFORMATION: Exam: US Abdomen, Limited; Right Upper Quadrant Exam date and time: 04/15/2020 10:32 PM Age: 79 years old Clinical indication: Pain and abnormal findings; Abnormal lab test; Other: Pancreatitis; Abdominal pain; Epigastric TECHNIQUE: Imaging protocol: US abdomen. Real time ultrasound with image documentation. Limited exam focused on the right upper quadrant. COMPARISON: RENAL US 08/25/2016 12:48 PM FINDINGS: Liver: The liver demonstrates no focal defects. Gallbladder: The gallbladder appears distended but is not measured and demonstrates small shadowing stones. There is no wall thickening measuring 2 mm. There is a negative sono Farah's sign. Common bile duct: The CBD measures 13 mm. Pancreas: The pancreas is of normal size. The duct is enlarged measuring 5 mm. Right kidney: The right kidney measures 8.2 cm with no hydronephrosis. IMPRESSION: 1. Distended gallbladder with gallstones. There is no wall thickening and there is a negative sono Farah's sign. 2. Atrophic right kidney with no hydronephrosis. 3. Distended CBD measuring 13 mm. 4. Distended pancreatic duct measuring 5 mm. Electronically signed by: Camilo Bright On 04/15/2020 22:43:59 PM
[2020-04-15] MEDS ORDERED: NS 1,000 ML IV SCH (23:30)
[2020-04-16 02:50] VITALS: BP 124/69
== END 2020-04-16 02:17 | disposition short-term general hospital (02) ==
LOC: M ED 19:42
DX: K80.50 Calculus of bile duct without cholangitis or cholecystitis without obstruction (principal); R11.0 Nausea; I48.91 Unspecified atrial fibrillation; N18.30 Chronic kidney disease, stage 3 unspecified; Z85.51 Personal history of malignant neoplasm of bladder; E05.90 Thyrotoxicosis, unspecified without thyrotoxic crisis or storm; D58.9 Hereditary hemolytic anemia, unspecified; Z79.899 Other long term (current) drug therapy; Z79.01 Long term (current) use of anticoagulants
CPT/HCPCS: 76705; 80048; 80076; 80162; 83605; 83690; 83735; 85025; 85610; 93041; 96361; 96374; 96375; 99285; J2270; J2405; U0002

== ENCOUNTER → 2020-04-27 | Outpatient (REF) | payer MEDICARE ==
[2020-04-27 17:48] LABS: BILIRUBIN,TOTAL 0.5 MG/DL (0.2-1.0); CALCIUM LEVEL 9.2 MG/DL (8.8-10.2); CREATININE FOR GFR 1.16 MG/DL (0.55-1.30); POTASSIUM SERUM 4.9 MEQ/L (3.5-5.1); TOTAL PROTEIN 7.5 GM/DL (6.4-8.2)
== END ==
LOC: M SFHCADAM 11:59
PROVIDERS: ATTEND Physician Assistant Medical
DX: K85.10 Biliary acute pancreatitis without necrosis or infection (principal); K80.19 Calculus of gallbladder with other cholecystitis with obstruction
CPT/HCPCS: 80053; 83690; 85610; G0463

== ENCOUNTER → 2020-06-24 | Outpatient (CLI) | payer MEDICARE ==
[~2020-06-24] MED LIST changes: +ACET1TAB55 PO; +AMLO25TA PO; +ASPI81CH33 PO
== END ==
LOC: M LABSMTC 09:32
PROVIDERS: ATTEND Anesthesiology
DX: Z01.812 Encounter for preprocedural laboratory examination (principal); Z20.822 Contact with and (suspected) exposure to COVID-19

== ENCOUNTER 2020-06-29 09:25 | Day surgery (SDC) | payer MEDICARE ==
[~2020-06-29] VITALS: Ht 152.4 cm; Wt 55.5 kg
[~2020-06-29 09:25] MED LIST changes: +LIDOCAINE 1% MDV 20ML VIAL SQ PRN; +LR 1,000 ML IV ONE; +ceFAZolin SOD 2 GM in IV 1 EA IV ONE
--- OUTSIDE RECORDS SUMMARY | 2020-06-29 09:32 | CCD ---
Author Author [facility] Organization [facility] Address Unknown Phone Unavailable Care Team Providers Care Veneer Glue Jointer Feedback Name Role Phone Caterina Granados Unavailable PROBLEMS Type Condition ICD9-CM Code [id number] Code Onset Dates Condition S tatus SNOMED Code Notes Problem B12 deficiency E53.8 Active 276510474 Problem Essential hypertension I10 Active 02396863 She is on antihypertensive therapy of metoprolol and furosemide, and amlodipine was just added to her regimen recently. Blood pressure is controlled. Problem Chronic systolic CHF (congestive heart failure), NYHA class 3 I50.22 Active 929288440 Problem History of bladder cancer Z85.51 Active 544264 002 She had renal bladder cancer which was resected and she has a ureterostomy which is functioning well. Problem History of aortic valve replacement Z95.2 Acti ve [id number] Had aortic valve replacement surgery with a bioprosthetic valve a few years ago. She is followed by cardiology. No evidence of valve dysfunction. Problem Hyperthyroidism E05.90 Active 65925262 She is on methimazole for hyperthyroidism and this is monitored and treated by her electronic operator. Problem Calculus of gallbladder without cholecystitis wi thout obstruction K80.20 Active 42010771 She has gallston es and has a history of biliary pancreatitis. Cholecystectomy is scheduled for the near future. Problem Thyroid nodule E04.1 Active 824107854 Problem Hypomagnesemia E83.42 Active 264596150 Problem CKD (chronic kidney disease), stage 3 (moderate) N 18.3 Active 462790539 Problem Anticoagulation monitoring, INR range 2-3 Z79.01 Active 927707859 Her INR is therapeutic today. Problem Persistent atrial fibrillation I48.19 Active 4 69854047 Her heart rate is controlled on digoxin and metoprolol and she is therapeutically anticoagulated. ALLERGIES No Known Allergies ENCOUNTERS from 1940 to 2020-06-04 Encounter Location Date Provider Diagnosis [facility] Brielle [address] [place] [id number] May, Caterina Granados IMMUNIZATIONS Vaccine Route Administration Date Status Influenza (18 yrs & older) Flublok IM Intramuscular May 05, 2019 Administered Influenza (18 yrs & older) Flublok IM Intramuscular Apr 04, 2018 Administered Influenza (High Dose 65 & up) IM Intramuscular Apr 25, 2016 A dministered Influenza (High Dose 65 & up) Unknown May 04, 2017 Ad ministered Zoster 0.65mL (Zostavax) Unknown Jun 18, 2014 Adminis tered Pneumococcal Adult 0.5mL (Pneumovax 23) Unknown Jun 08, 2017 Administered Influenza (18 yrs & older) Flublok IM Intramuscular Mar 23, 2020 Administered Pneumococcal Adult 0.5mL (Pneumovax 23) Unknown December 23, 2012 Administered TDAP Unknown December 23, 2012 Administered Pneumococcal 0.5mL (Prevnar 13) IM Intramuscular May 29, 2016 Administered SOCIAL HISTORY Tobacco Use: Social History Observation Description Date Details (start date - stop date) Never Smoker Sex Assigned At : Social History Observation Description Sex Assigned At Unknown Education: Question Answer Notes Level of Education: Finished High School Audit Question Answer Notes Total Score: 0 Interpretation: Alcohol Education Language: Question Answer Notes Languages spoken: Slovenian Jehovah'S Witness: Question Answer Notes Jehovah'S Witness 13 Religion Domestic Violence: Question Answer Notes Status: Sexual Hx: Question Answer Notes Had sex in the last 12 months (vaginal, oral, or anal)? No Drug and Alcohol Question Answer Notes Total Score: 0 Interpretation: No problems reported Alcohol Screening: Question Answer Notes Did you have a drink containing alcohol in the past year? No Points 0 Interpretation Negative BMI Care Goal Follow-Up Question Answer Notes Below Normal BMI Follow-Up Dietary education for weight gain Tobacco Use: Question Answer Notes Are you a: never smoker REASON FOR REFERRAL No Information VITAL SIGNS No information MEDICATIONS Medication SIG (Take, Route, Frequency, Duration) Notes Start Da te End Date Status Vitamin B-12 500 MCG 2 tablets Orally Once a day May, Active Digoxin 125 MCG 1 tablet Orally Once a day, 5 days a week Active AmLODIPine Besylate 2.5 MG 1 tablet Orally Daily Active Aspirin 81 81 MG 1 tablet Orally Once a day Active Furosemide 20 MG 1 tablet Orally Once a day for 90 days Active Warfarin Sodium 2.5 MG 2.5 mg 3 times a week, 5mg 4 times a week Orally Once a day for 146 Active Methimazole 10 MG 1/2 tab Orally 5 days a week, M-F Active Metoprolol Tartrate 50 MG 1 tab Orally Twice a day for 90 day(s) Active Calcium + D 600-200 MG-UNIT Orally Active PROCEDURES No Information RESULTS No Results REASON FOR VISIT Cancelled patient MEDICAL (GENERAL) HISTORY Type Description Date Medical History hypomag Medical History R carotid bruit Medical History Shingles L torso - Has had Zoster Medical History B12 def Medical History Bladder cancer - cystostomy bag - late 9 0s Medical History hyperthyroidism, with thyroid nodules- m gmt per Endo Medical History A fib - Chr Coumadin Medical History Bovine Aortic Valve replacem ent d/t with Rheumatic fever as a child- Dr Bennett - [facility] Medical History 10/01 ECHO - nl EF, mild conc LVH, diastolic dysfunction gr 3, severe LAE, mod stenotic bioprosthetic valve, mild mod mitral regurg, mild pulm HTN Medical History CKD3 Medical History h/o B12 def Medical History anemia of chronic disease, baseline Hgb 11.5-11.9 Surgical History cystectomy d/t bladder cancer late Surgical History cataracts B Surgical History hysterectomy 1979 Surgical History Aortic Valve replacement - Bovine valve 2013 Surgical History tonsillectomy Surgical History appendectomy Surgical History robotic cholecystectomy-Dr. Machado 05/2021 Hospitalization History surgery related Hospitalization History [facility] A-fib Hospitalization History A-fib and Pneumonia @ [facility] 08/05 Hospitalization History Biliary pancreatitis - [facility] transferr ed to [facility] 04/16 Goals Section No Information Health Concerns No Information MEDICAL EQUIPMENT No Information MENTAL STATUS No Information FUNCTIONAL STATUS No Information ASSESSMENTS No Information PLAN OF TREATMENT No Information Insurance Providers Payer Name Payer Address Payer Phone Insured Name Patient Relati onship to Insured Coverage Start Date [facility]age End Date [facility] [id number] [facility] [id number] RADHAMES AVINA
--- OUTSIDE RECORDS SUMMARY | 2020-06-29 09:32 | CCD | Continuity of Care Document ---
Author Author Avelina MACHADO MD Organization Unknown Address [address] [place] [id number] Phone [phone] Care Team Providers Care Quality Tech Name Role Phone Caterina [email or web address] [phone] Problems Description No Information Available Social History Type Date Description Comments Sex Unknown ETOH Use Denies alcohol use Tobacco Use Start: Unknown Denies Smoking Recreational Drug Use Denies Drug Use Allergies, Adverse Reactions, Alerts Description No Known Drug Allergies Medications Active Medications SIG Qnty Indications Ordering Provide r Date Digoxin 125mcg Tablets 1 Tab PO Mon, Thurs, Fri Caterina Granados, R.P.A. Furosemide 20mg Tablets 1 Tab PO qd Caterina Granados, R.P.A. Warfarin Sodium 2.5mg Tablets Take One Tablet By Mouth 3 Times A Week And Take 2 Tablets 4 Times A Week Unknown Methimazole 10mg Tablets Take One Tablet By Mouth Every Day Unknown Metoprolol Tartrate 50mg Tablets Take One Tablet By Mouth Twice A Day Unknown Vitamin B 12 500mcg Tablets 1 Tab PO qd Unknown Aspirin [address] 1 Tab PO qd Unknown Immunizations Description No Information Available Vital Signs Date Vital Result Comment 05/05/2020 2:38pm BP Systolic 132 mmHg BP Diastolic 85 mmHg Heart Rate 85 /min Height 59 inches 4'11" Weight 122.38 lb BMI (Body Mass Index) 24.7 kg/m2 [place] Body Weight 100 lb Weight 55.509 kg Results Description No Information Available Procedures Description No Information Available Medical Devices Description No Information Available Encounters Description No Information Available Assessments Description No Information Available Plan of Treatment No Information Available Functional Status Description No Information Available Mental Status Description No Information Available Referrals Refer to Reason for Referral Status Appt Date Endy Machado JR, MD BILIARY PANCREATITIS & CHOLELITHIASIS [place] heduled 05/05/[address] [place] [id number] [phone]
--- OUTSIDE RECORDS SUMMARY | 2020-06-29 09:32 | CCD ---
Author Author [facility] Organization [facility] Address Unknown Phone Unavailable Care Team Providers Care Bedspring Assembler Name Role Phone Brennon Wood Unavailable PROBLEMS Type Condition ICD9-CM Code [id number] Code Onset Dates Condition S tatus SNOMED Code Notes Problem B12 deficiency E53.8 Active 994004954 Problem Essential hypertension I10 Active 33089497 She is on antihypertensive therapy of metoprolol and furosemide, and amlodipine was just added to her regimen recently. Blood pressure is controlled. Problem Chronic systolic CHF (congestive heart failure), NYHA class 3 I50.22 Active 355994630 Problem History of bladder cancer Z85.51 Active 732300 002 She had renal bladder cancer which was resected and she has a ureterostomy which is functioning well. Problem History of aortic valve replacement Z95.2 Acti ve [id number] Had aortic valve replacement surgery with a bioprosthetic valve a few years ago. She is followed by cardiology. No evidence of valve dysfunction. Problem Hyperthyroidism E05.90 Active 22929730 She is on methimazole for hyperthyroidism and this is monitored and treated by her head pastry chef. Problem Calculus of gallbladder without cholecystitis wi thout obstruction K80.20 Active 32759642 She has gallston es and has a history of biliary pancreatitis. Cholecystectomy is scheduled for the near future. Problem Thyroid nodule E04.1 Active 792844848 Problem Hypomagnesemia E83.42 Active 906540964 Problem CKD (chronic kidney disease), stage 3 (moderate) N 18.3 Active 490735039 Problem Anticoagulation monitoring, INR range 2-3 Z79.01 Active 506380151 Her INR is therapeutic today. Problem Persistent atrial fibrillation I48.19 Active 4 37633006 Her heart rate is controlled on digoxin and metoprolol and she is therapeutically anticoagulated. ALLERGIES No Known Allergies ENCOUNTERS from 1940 to 2020-06-03 Encounter Location Date Provider Diagnosis [facility] Bri[facility] [place] [address] 16 May, 2020 Brennon Wood Encounter for perioperative consultation Z01.818 ; Calculus of gallbladder without cholecystitis without obstruction K80.20 ; History of pancreatitis Z87.19 ; Hyperthyroidism E05.90 ; Essential hypertension I10 ; Persistent atrial fibrillation I48.19 ; History of bladder cancer Z85.51 ; History of aortic valve replacement Z95.2 and Anticoagulation monitoring, INR range 2-3 Z79.01 IMMUNIZATIONS Vaccine Route Administration Date Status Influenza (18 yrs & older) Flublok IM Intramuscular May 05, 2019 Administered Influenza (18 yrs & older) Flublok IM Intramuscular Apr 04, 2018 Administered Influenza (High Dose 65 & up) Unknown May 04, 2017 Ad ministered Influenza (High Dose 65 & up) IM Intramuscular Apr 25, 2016 A dministered Zoster 0.65mL (Zostavax) Unknown Jun 18, 2014 [...] Language: Question Answer Notes Languages spoken: Slovenian Yazidi: Question Answer Notes Yazidi 13 Gnosticist Domestic Violence: Question Answer Notes Status: Sexual [...] REASON FOR REFERRAL No Information VITAL SIGNS Weight 124.4 lbs May, Height 59 in May, BMI 25.12 kg/m2 May, Heart Rate 77 /min May, Respiratory Rate 18 /min May, Temperature 97.6 degrees Fahrenheit May, Oximetry 99% May, Blood pressure systolic 122 mm Hg May, Blood pressure diastolic 74 mm Hg May, MEDICATIONS Medication SIG (Take, Route, Frequency, Duration) [...] MG-UNIT Orally Active PROCEDURES No Information RESULTS Component Value Reference Range PT-INR Fingerstick Reviewed date:06/02/2020 13:02:38 Interpretation: Performing Lab:[facility] [address] INR 2.4 Verified Patient's Name and Yes-CHARY Weinberg Current Dose 1 2.5MG on Sunday, Sunday and Sunday Current Dose 2 MG the ROW Tab Strength 2.5MG Tabs Indication for Anticoagulation A-Fib Recent Bleeding No Internal QC Acceptable (Y/N) Yes Therapeutic Range 2-3 Education Given (Date / Initials) New Dose 1 No change New Dose 2 Weekly Total Next PT-INR 07/2020 with Caterina at [facility] - - REASON FOR VISIT Pre-operative clearance for robotic cholecystectomy preformed by Dr. Machado at [facility] on June 29, 2020 under anesthesia. DX: K80.20 MEDICAL (GENERAL) HISTORY Type Description Date Medical [...] Surgical History cataracts B Surgical History hysterectomy 1978 Surgical History Aortic Valve replacement - Bovine valve 2013 Surgical History tonsillectomy Surgical History appendectomy Surgical History robotic cholecystectomy-Dr. Machado 05/2021 Hospitalization History surgery related Hospitalization History [facility] A-fib Hospitalization History A-fib and Pneumonia @ [facility] 08/05 Hospitalization History Biliary pancreatitis - [facility] transferr ed to [facility] 04/16 Goals Section No Information Health Concerns No Information MEDICAL EQUIPMENT No Information MENTAL STATUS No Information FUNCTIONAL STATUS No Information ASSESSMENTS Encounter Date Diagnosis Assessment Notes Treatment Notes Treatm ent Clinical Notes May, Encounter for perioperative consultation (ICD-10 - Z01.818) On the basis of this preoperative evaluation, including interview and physical examination and review of her record, I find the patient to be medically optimized] for the forthcoming surgical procedure. Risk for cardiac morbidity and mortality for this procedure is less than 5%, in this moderate risk patient who will be undergoing a moderate] risk procedure. The patient has no major and some minor or intermediate clinical predictors of increased perioperative cardiovascular risk including a history of congestive heart failure ( which is currently compensated), chronic kidney disease stage III, chronic atrial fibrillation with anticoagulation. Medications to hold prior to surgery: She should stop her warfarin and aspirin 5 days before surgery. She should only take her metoprolol and amlodipine on the morning of surgery. She should hold her Lasix, methimazole and digoxin on the morning of surgery. The patient does not require any further preoperative testing from my standpoint, although she has a forthcoming cardiology evaluation later today and further testing may be requested by that provider. There is no history suggestive of sleep apnea. May, Calculus of gallbladder with out cholecystitis without obstruction (ICD-10 - K80.20) She has gallstones and has a history of biliary pancreatitis. Cholecystectomy is scheduled for the near future. May, History of pancreatitis (ICD-10 - Z87.19) May, Hyperthyroidism (ICD-10 - E05.90) She is on methimazole for hyperthyroidism and this is monitored and treated by her head pastry chef. May, Essential hypertension (ICD-10 - I10) Janessa julio is on antihypertensive therapy of metoprolol and furosemide, and amlodipine was just added to her regimen recently. Blood pressure is controlled. May, Persistent atrial fibrillation (ICD-10 - I48.19) Her heart rate is controlled on digoxin and metoprolol and she is therapeutically anticoagulated. May, History of bladder cancer (ICD-10 - Z85. 51) She had renal bladder cancer which was resected and she has a ureterostomy which is functioning well. May, History of aortic valve replacement (ICD -10 - Z95.2) Had aortic valve replacement surgery with a bioprosthetic valve a few years ago. She is followed by cardiology. No evidence of valve dysfunction. May, Anticoagulation monitoring, INR range 2- 3 (ICD-10 - Z79.01) Her INR is therapeutic today. PLAN OF TREATMENT Next Appt Details 07/21/[address] [place] Reason: Insurance Providers Payer Name Payer Address Payer Phone Insured Name Patient Relati onship to Insured Coverage Start Date Coverage End Date [email or web address] [address] [address] [facility] [phone] RADHAMES AVINA
--- OUTSIDE RECORDS SUMMARY | 2020-06-29 09:32 | CCD ---
Author Author [facility] Organization [facility] Address Unknown Phone Unavailable Care Team Providers Care Analytical Manager Name Role Phone Caterina Granados Unavailable PROBLEMS Type Condition ICD9-CM Code CAG66-PN Code Onset Dates Condition S tatus SNOMED Code Notes Problem Thyroid nodule E04.1 Active 752239353 Problem Hyperthyroidism E05.90 Active 99384817 Problem B12 deficiency E53.8 Active 377730056 Problem Anticoagulation monitoring, INR range 2-3 Z79.01 Active 554730270 Problem History of bladder cancer Z85.51 Active 423093 002 Problem Persistent atrial fibrillation I48.19 Active 4 34632659 Problem Essential hypertension I10 Active 13534245 Problem Hypomagnesemia E83.42 Active 006917311 Problem Chronic systolic CHF (congestive heart failure), NYHA class 3 I50.22 Active 156002743 Problem CKD (chronic kidney disease), stage 3 (moderate) N 18.3 Active 854735643 ALLERGIES No Known Allergies ENCOUNTERS from 1940 to 2020 Encounter Location Date Provider Diagnosis [address] [place] [address] Apr, Mar ia Roberta Anticoagulation monitoring, INR range 2-3 Z79.01 and Persistent atrial fibrillation I48.19 IMMUNIZATIONS Vaccine Route Administration Date Status Influenza [...] Education Language: Question Answer Notes Languages spoken: Yakut Christianity: Question Answer Notes Christianity 13 Judaism Sexual Hx: Question Answer Notes Had sex [...] FOR REFERRAL No Information VITAL SIGNS Weight 125.4 lbs Apr, Height 59 in Apr, BMI 25.32 kg/m2 Apr, Heart Rate 74 /min Apr, Respiratory Rate 18 /min Apr, Temperature 98.4 degrees Fahrenheit Apr, Oximetry 99 Apr, Blood pressure systolic 122 mm Hg Apr, Blood pressure diastolic 72 mm Hg Apr, MEDICATIONS Medication SIG (Take, Route, Frequency, Duration) Notes Start Da te End Date Status Methimazole 10 MG 1/2 tab Orally 5 days a week, M-F Active Metoprolol Tartrate 50 MG 1 tab Orally Twice a day for 90 day(s) Active Furosemide 20 MG 1 tablet Orally Once a day for 90 days Active Warfarin Sodium 2.5 MG 2.5 mg 3 times a week, 5mg 4 times a week Orally Once a day for 146 Active Calcium + D 600-200 MG-UNIT Orally Active Vitamin B-12 500 MCG 2 tablets Orally Once a day May, 016 Active Ferrous Sulfate 325 (65 Fe) MG 1 tablet Orally Once a day Active Digoxin 125 MCG 1 tablet Orally Once a day for 30 day(s) Active PROCEDURES No Information RESULTS Component Value Reference Range PT-INR Fingerstick Reviewed date:05/11/2020 13:28:52 Interpretation: Performing Lab:[facility] [place] [address] INR 2.5 Verified Patient's Name and am Current Dose 1 2.5mg M/W/F Current Dose 2 5MG ROW Tab Strength 2.5mg Indication for Anticoagulation a-fib Recent Bleeding no Internal QC Acceptable (Y/N) yes Therapeutic Range 2-3 Education Given (Date / Initials) New Dose 1 no change New Dose 2 Weekly Total Next PT-INR 4 w - - REASON FOR VISIT [phone] INR MEDICAL (GENERAL) HISTORY Type Description Date Medical [...] 2013 Surgical History tonsillectomy Surgical History appendectomy Hospitalization History surgery related Hospitalization History [facility] A-fib .2016 Hospitalization History A-fib and Pneumonia @ [facility] 08/05 Hospitalization History Biliary pancreatitis - [facility] transferr ed to [facility] 04/16 Goals Section No Information Health Concerns No Information MEDICAL EQUIPMENT No Information MENTAL STATUS No Information FUNCTIONAL STATUS No Information ASSESSMENTS Encounter Date Diagnosis Assessment Notes Treatment Notes Treatm ent Clinical Notes Apr, Anticoagulation monitoring, INR range 2-3 (ICD-1 0 - Z79.01) Apr, Persistent atrial fibrillation (ICD-10 - I48.19) PLAN OF TREATMENT Medication Medication Name Sig Start Date Stop Date Metoprolol Tartrate 50 MG 1 tab Orally Twice a day for 90 day(s) Next Appt Details 4 Weeks Reason:PT Provider Name:Caterina Granados, 2020-06-04 02:00:00 PM, [address], [place], [address], Provider Name:Caterina Granados, 2020-06-08 01:45:00 PM, [address], [place], [address], Follow Up:4 WeeksPT Insurance Providers Payer Name Payer Address Payer Phone Insured Name Patient Relati onship to Insured Coverage Start Date Coverage End Date [facility] [address] [address] [facility] [id number] RADHAMES AVINA
--- OUTSIDE RECORDS SUMMARY | 2020-06-29 09:32 | CCD ---
Author Author [facility] Organization [facility] Address Unknown Phone Unavailable Care Team Providers Care Garden Equipment Mechanic Name Role Phone Caterina Granados Unavailable PROBLEMS Type Condition ICD9-CM Code SEE70-QT Code Onset Dates Condition S tatus SNOMED Code Notes Problem Thyroid nodule E04.1 Active 304501485 Problem Hyperthyroidism E05.90 Active 68856250 Problem B12 deficiency E53.8 Active 014719129 Problem Anticoagulation monitoring, INR range 2-3 Z79.01 Active 710865920 Problem History of bladder cancer Z85.51 Active 644315 002 Problem Persistent atrial fibrillation I48.19 Active 4 30740381 Problem Essential hypertension I10 Active 81497991 Problem Hypomagnesemia E83.42 Active 587706243 Problem Chronic systolic CHF (congestive heart failure), NYHA class 3 I50.22 Active 961868575 Problem CKD (chronic kidney disease), stage 3 (moderate) N 18.3 Active 852666287 ALLERGIES No Known Allergies ENCOUNTERS from 1940 to 2020-04-29 Encounter Location Date Provider Diagnosis [address] [place] [address] Apr, Mar loyda Granados Acute biliary pancreatitis, unspecified complication status K85.10 ; Anticoagulation monitoring, INR range 2-3 Z79.01 ; Persistent atrial fibrillation I48.19 and Calculus of gallbladder with cholecystitis of other acuity with obstruction K80.19 IMMUNIZATIONS Vaccine Route Administration Date Status Influenza [...] Education Language: Question Answer Notes Languages spoken: Swiss Ep[employer]op[employer]: Question Answer Notes [employer] Sexual Hx: Question Answer Notes Had sex [...] FOR REFERRAL No Information VITAL SIGNS Weight 123.2 lbs Apr, Height 59 in Apr, BMI 24.88 kg/m2 Apr, Heart Rate 80 /min Apr, Respiratory Rate 18 /min Apr, Temperature 98.5 degrees Fahrenheit Apr, Oximetry 99 Apr, Blood pressure systolic 110 mm Hg Apr, Blood pressure diastolic 84 mm Hg Apr, MEDICATIONS Medication SIG (Take, Route, Frequency, Duration) Start Date En d Date Status Digoxin 125 MCG 1 tablet Orally Once a day for 30 day(s) Active Ferrous Sulfate 325 (65 Fe) MG 1 tablet Orally Once a day Active Furosemide 20 MG 1 tablet Orally Once a day for 90 days Active Vitamin B-12 500 MCG 2 tablets Orally Once a day May, Active Warfarin Sodium 2.5 MG 2.5 mg 3 times a week, 5mg 4 times a week Orally Once a day for 146 Active Metoprolol Tartrate 50 MG TAKE ONE TABLET BY MOUTH TWICE A DAY Oral for 30 Active Calcium + D 600-200 MG-UNIT Orally Active Methimazole 10 MG 1/2 tab Orally 5 days a week, M-F Active PROCEDURES No Information RESULTS Component Value Reference Range PT-INR Fingerstick Reviewed date:04/27/2020 11:53:21 Interpretation: Performing Lab:[facility] [place] [address] INR 1.6 Verified Patient's Name and MA Current Dose 1 2.5 mg MWF Current Dose 2 5 mg ROW Tab Strength 2.5 mg Indication for Anticoagulation A- Fib Recent Bleeding No Internal QC Acceptable (Y/N) Yes Therapeutic Range 2-3 Education Given (Date / Initials) New Dose 1 5 mg TWTH, then usual New Dose 2 Weekly Total Next PT-INR 2 w - - Comprehensive Metabolic Profile (CMP) Reviewed date:04/29/2020 09:46:14 Interpretation: Performing Lab:[facility] LABORATORY [address] [facility] [address] , [place] [address] GLUCOSE, FASTING 86 70-100 BLOOD UREA NITROGEN 32 7-18 CREATININE FOR GFR 1.16 0.55-1.30 GLOMERULAR FILTRATION RATE 48.0 >39 SODIUM LEVEL 138 136-145 POTASSIUM SERUM 4.9 3.5-5.1 CHLORIDE LEVEL 105 98-107 CARBON DIOXIDE LEVEL 26 21-32 CALCIUM LEVEL 9.2 8.8-10.2 AST/SGOT 24 7-37 ALT/SGPT 25 12-78 ALKALINE PHOSPHATASE 90 45-117 BILIRUBIN,TOTAL 0.5 0.2-1.0 TOTAL PROTEIN 7.5 6.4-8.2 ALBUMIN 4.0 3.2-5.2 ALBUMIN/GLOBULIN RATIO 1.1 1.2-2.2 LIPASE Reviewed date:04/29/2020 09:46:14 Interpretation: Performing Lab:[facility] LAB[facility] [address] [facility] [address] , ,[place] [address] LIPASE [phone] REASON FOR VISIT [phone] INR MEDICAL (GENERAL) HISTORY Type Description Date [...] fever as a child- Dr Bennett - [place] Medical History 10/01 ECHO - nl EF, [...] appendectomy Hospitalization History surgery related Hospitalization History [facility] A-fib Hospitalization History A-fib and Pneumonia @ [facility] 08/05 Hospitalization History Biliary pancreatitis - [facility] transferr ed to [facility] 04/16 Goals Section No Information Health Concerns No Information MEDICAL EQUIPMENT No Information MENTAL STATUS No Information FUNCTIONAL STATUS No Information ASSESSMENTS Encounter Date Diagnosis Notes Apr, Calculus of gallbladder with cholecystitis of other acuity with obstruction (ICD-10 - K80.19) Apr, Persistent atrial fibrillation (ICD-10 - I48.19) Apr, Anticoagulation monitoring, INR range 2- 3 (ICD-10 - Z79.01) Apr, Acute biliary pancreatitis, unspecified complication status (ICD-10 - K85.10) PLAN OF TREATMENT Treatment Notes Assessment Notes Clinical Notes Acute biliary pancreatitis, unspecified complication s tatus Repeat CMP today, refer to [facility] for consult for cholecystectomy Next Appt Details BW today, 2 w PTt Reason: Provider Name:Caterina Granados, 2020-05-11 01:15:00 PM, [address], [place], [address], Insurance Providers Payer Name Payer Address Payer Phone Insured Name Patient Relati onship to Insured Coverage Start Date Coverage End Date [employer] [address] [address] [facility] [phone] RADHAMES AVINA self
--- OUTSIDE RECORDS SUMMARY | 2020-06-29 09:32 | CCD | Summary of Care ---
Author Author [facility] Organization [facility] Address Unknown Phone Unavailable Care Team Providers Care Coremaker Floor Name Role Phone PCP Unavailable Encounter Details Care Team Description Date Type Department 04/15/2020 [facility] TRANSFER CE NTER Encounter [address] [place] [address] Allergies Not on Filedocumented as of this encounter (statuses as of 04/30/2020) Medications Not on filedocumented as of this encounter (statuses as of 04/30/2020) Active Problems Not on filedocumented as of this encounter (statuses as of 04/30/2020) Social History Date Tobacco Use Types Packs/Day Years Used Never Assessed Sex Assigned at Date Recorded Not on file documented as of this encounter Last Filed Vital Signs Not on filedocumented in this encounter Progress Notes * Radha Smart, ALEXANDRA - 04/15/2020 11:04 PM EDT I was asked to ascertain bed availability for this patient and have determined t hat no appropriate bed for this individual patient is available at either campus . This includes hallway beds or other accommodations that we would customarily m brain for this individual patient's needs. documented in this encounter Plan of Treatment Health Maintenance Due Date Last Done Comments MMR Vaccines (1 of - 1941 Standard series) Varicella Vaccines (1 of 1941 2 - 2-dose childhood series) DTaP,Tdap,and Td Vaccines 1947 (1 - Tdap) Zoster Vaccines (1 of 2) 1990 Osteoporosis Screening 2 2005 yr Pneumococcal Vaccine: 65+ 2005 Years (1 of 1 - PPSV23) Influenza Vaccine Completed 03/23/2020, 05/05/2019, 04/04/2018, Additional history exists HIB Vaccines Aged Out No longer eligible based on patient's age to complete this topic Hepatitis A Vaccines Aged Out No longer eligibl e based on patient's age to complete this topic Hepatitis B Vaccines Aged Out No longer eligibl e based on patient's age to complete this topic IPV Vaccines Aged Out No longer eligible based on patient's age to complete this topic Pneumococcal Vaccine: Aged Out No longer eligib le based on patient's age to Pediatrics (0 to 5 Years) complete this topic and At-Risk Patients (6 to 64 Years) documented as of this encounter Results Not on filedocumented in this encounter
--- OUTSIDE RECORDS SUMMARY | 2020-06-29 09:32 | CCD ---
Author Author [facility] Organization [facility] Address Unknown Phone Unavailable Care Team Providers Care Pier Worker Name Role Phone Caterina Granados Unavailable PROBLEMS Type Condition ICD9-CM Code ZYR25-KN Code Onset Dates Condition S tatus SNOMED Code Notes Problem Thyroid nodule E04.1 Active 443395084 Problem Hyperthyroidism E05.90 Active 84479376 Problem B12 deficiency E53.8 Active 421668627 Problem Anticoagulation monitoring, INR range 2-3 Z79.01 Active 999337643 Problem History of bladder cancer Z85.51 Active 285061 002 Problem Persistent atrial fibrillation I48.19 Active 4 48767657 Problem Essential hypertension I10 Active 07856562 Problem Hypomagnesemia E83.42 Active 748321201 Problem Chronic systolic CHF (congestive heart failure), NYHA class 3 I50.22 Active 982776207 Problem CKD (chronic kidney disease), stage 3 (moderate) N 18.3 Active 620943798 ALLERGIES No Known Allergies ENCOUNTERS from 1940 to 2020-04-16 Encounter Location Date Provider Diagnosis [address] [place] [address] Mar, Mar loyda Roberta Anticoagulation monitoring, INR range 2-3 Z79.01 [...] Education Language: Question Answer Notes Languages spoken: Estonian Mandaen: Question Answer Notes Mandaen 13 [employer] Sexual Hx: Question Answer Notes Had sex [...] FOR REFERRAL No Information VITAL SIGNS Weight 127.8 lbs Mar, Height 59 in Mar, BMI 25.81 kg/m2 Mar, Heart Rate 88 /min Mar, Respiratory Rate 18 /min Mar, Temperature 96.8 degrees Fahrenheit Mar, Oximetry 95 Mar, MEDICATIONS Medication SIG (Take, Route, Frequency, Duration) Start Date En d Date Status Furosemide 20 MG 1 tablet Orally Once a day for 90 days Active Vitamin B-12 500 MCG 2 tablets Orally Once a day May, Active Methimazole 10 MG 1/2 tab Orally 5 days a week, M-F Active Calcium + D 600-200 MG-UNIT Orally Active Metoprolol Tartrate 50 MG TAKE ONE TABLET BY MOUTH TWICE A DAY Oral for 30 Active Warfarin Sodium 2.5 MG 2.5 mg 3 times a week, 5mg 4 times a week Orally Once a day for 146 Active Digoxin 125 MCG 1 tablet Orally Once a day for 30 day(s) Active Ferrous Sulfate 325 (65 Fe) MG 1 tablet Orally Once a day Active PROCEDURES No Information RESULTS Component Value Reference Range PT-INR Fingerstick Reviewed date:04/13/2020 11:34:10 Interpretation: Performing Lab:[facility] [place] [address] INR 3.4 Verified Patient's Name and ML Current Dose 1 2.5mg MWF Current Dose 2 5mg ROW Tab Strength 2.5mg Indication for Anticoagulation A-fib Recent Bleeding No Internal QC Acceptable (Y/N) Yes Therapeutic Range 2.3 Education Given (Date / Initials) New Dose 1 hold x 1d, then resume New Dose 2 Weekly Total Next PT-INR 2 w - - REASON FOR VISIT PT INR MEDICAL (GENERAL) HISTORY Type Description Date [...] fever as a child- Dr Bennett - [place] Medical History 10/01 ECHO - nl EF, [...] appendectomy Hospitalization History surgery related Hospitalization History [facility] A-fib Hospitalization History A-fib and Pneumonia @ [facility] 08/05 Goals Section No Information Health Concerns No Information MEDICAL EQUIPMENT No Information MENTAL STATUS No Information FUNCTIONAL STATUS No Information ASSESSMENTS Encounter Date Diagnosis Notes Mar, Persistent atrial fibrillation (ICD-10 - I48.19) Mar, Anticoagulation monitoring, INR range 2- 3 (ICD-10 - Z79.01) PLAN OF TREATMENT Next Appt Details 2 Weeks Reason:PT Provider Name:Caterina Granados, 2020-04-27 11:30:00 AM, [address], [place], [address], Follow Up:2 WeeksPT Insurance Providers Payer Name Payer Address Payer Phone Insured Name Patient Relati onship to Insured Coverage Start Date Coverage End Date [facility] [address] [address] [facility] [phone] RADHAMES AVINA self
--- OUTSIDE RECORDS SUMMARY | 2020-06-29 09:32 | CCD ---
Author Author [facility] Organization [facility] Address Unknown Phone Unavailable Care Team Providers Care Manufacturing Chief Engineer Name Role Phone Caterina Granados Unavailable PROBLEMS Type Condition ICD9-CM Code RML00-FF Code Onset Dates Condition S tatus SNOMED Code Notes Problem Thyroid nodule E04.1 Active 580291590 Problem Hyperthyroidism E05.90 Active 18329598 Problem B12 deficiency E53.8 Active 297816328 Problem Anticoagulation monitoring, INR range 2-3 Z79.01 Active 026666569 Problem History of bladder cancer Z85.51 Active 021426 002 Problem Persistent atrial fibrillation I48.19 Active 4 01741999 Problem Essential hypertension I10 Active 97999947 Problem Hypomagnesemia E83.42 Active 965546900 Problem Chronic systolic CHF (congestive heart failure), NYHA class 3 I50.22 Active 756598559 Problem CKD (chronic kidney disease), stage 3 (moderate) N 18.3 Active 140145134 ALLERGIES No Known Allergies ENCOUNTERS from 1940 to 2020-04-23 Encounter Location Date Provider Diagnosis [address] [place] [address] Apr, Latoya Granados IMMUNIZATIONS Vaccine Route Administration Date Status [...] Education Language: Question Answer Notes Languages spoken: Upper Sorbian Synagogue: Question Answer Notes Synagogue 13 Zoroastrian[employer] Sexual Hx: Question Answer Notes Had sex [...] Duration) Start Date En d Date Status Metoprolol Tartrate 50 MG TAKE ONE TABLET BY MOUTH TWICE A DAY Oral for 30 Active Vitamin B-12 500 MCG 2 tablets Orally Once a day May, Active Methimazole 10 MG 1/2 tab Orally 5 days a week, M-F Active Calcium + D 600-200 MG-UNIT Orally Active Warfarin Sodium 2.5 MG 2.5 mg 3 times a week, 5mg 4 times a week Orally Once a day for 146 Active Furosemide 20 MG 1 tablet Orally Once a day for 90 days Active Digoxin 125 MCG 1 tablet Orally Once a day for 30 day(s) Active Ferrous Sulfate 325 (65 Fe) MG 1 tablet Orally Once a day Active PROCEDURES No Information RESULTS No Results REASON FOR VISIT warfarin sodium 2.5mg MEDICAL (GENERAL) HISTORY Type Description Date Medical [...] with Rheumatic fever as a child- Dr Donald Smart Medical History 10/01 ECHO - nl EF, [...] appendectomy Hospitalization History surgery related Hospitalization History [facility] A-fib Hospitalization History A-fib and Pneumonia @ [facility] 08/05 Goals Section No Information Health Concerns No Information MEDICAL EQUIPMENT No Information MENTAL STATUS No Information FUNCTIONAL STATUS No Information ASSESSMENTS No Information PLAN OF TREATMENT Medication Medication Name Sig Start Date Stop Date Warfarin Sodium 2.5 MG 2.5 mg 3 times a week, 5mg 4 times a week Orally Once a day for 146 Next Appt Details Provider Name:Caterina Granados, 2020-04-27 11:30:00 AM, [address], [place], [address], Insurance Providers Payer Name Payer Address Payer Phone Insured Name Patient Relati onship to Insured Coverage Start Date [facility]age End Date [facility] [address] [address] [facility] [phone] RADHAMES AVINA
--- OUTSIDE RECORDS SUMMARY | 2020-06-29 09:33 | CCD ---
Author Author [facility] Organization [facility] Address Unknown Phone Unavailable Care Team Providers Care Sales Correspondence Clerk Name Role Phone Tomasa, Emmanuel Kiran MD Unavailable Unavailable Chafe, A Magno MD Unavailable Unavailable Chafe, A Magno MD Unavailable Unavailable Chafe, Emmanuel Kiran MD Unavailable Unavailable Chafe, A Magno MD Unavailable Unavailable Chafe, A Magno MD Unavailable Unavailable Chafe, A Magno BRYAN Unavailable Unavailable Chafe, A Magno MD Unavailable Unavailable Chafe, Emmanuel Kiran MD Unavailable Unavailable Chafe, Emmanuel Kiran MD Unavailable Unavailable Chafe, Emmanuel Kiran MD Unavailable Unavailable Chafe, A Magno MD Unavailable Unavailable Chafe, A Magno MD Unavailable Unavailable Chafe, A Magno BRYAN Unavailable Unavailable Chafe, A Magno BRYAN Unavailable Unavailable Herr, L Yvette PA Unavailable Unavailable Herr, L Yvette PA Unavailable Unavailable Herr, L Yvette PA Unavailable Unavailable Herr, L Yvette PA Unavailable Unavailable Herr, L Yvette PA Unavailable Unavailable Herr, L Yvette PA Unavailable Unavailable Herr, L Yvette PA Unavailable Unavailable Herr, L Yvette PA Unavailable Unavailable Herr, L Yvette PA Unavailable Unavailable Herr, L Yvette PA Unavailable Unavailable Herr, L Yvette PA Unavailable Unavailable Herr, L Yvette PA Unavailable Unavailable Herr, L Yvette PA Unavailable Unavailable Herr, L Yvette PA Unavailable Unavailable Herr, L Yvette PA Unavailable Unavailable Herr, L Yvette PA Unavailable Unavailable Herr, L Yvette PA Unavailable Unavailable Herr, L Yvette PA Unavailable Unavailable Herr, L Yvette PA Unavailable Unavailable Herr, L Yvette PA Unavailable Unavailable Herr, L Yvette PA Unavailable Unavailable Herr, L Yvette PA Unavailable Unavailable Herr, L Yvette PA Unavailable Unavailable Herr, L Yvette PA Unavailable Unavailable Herr, L Yvette PA Unavailable Unavailable Herr, L Yvette PA Unavailable Unavailable Herr, L Yvette PA Unavailable Unavailable Herr, L Yvette PA Unavailable Unavailable Herr, L Yvette PA Unavailable Unavailable Herr, L Yvette PA Unavailable Unavailable Herr, L Yvette PA Unavailable Unavailable Herr, L Yvette PA Unavailable Unavailable Herr, L Yvette PA Unavailable Unavailable Herr, L Yvette PA Unavailable Unavailable Herr, L Yvette PA Unavailable Unavailable Herr, L Yvette PA Unavailable Unavailable COOK, B BRYAN LUGGAGE MAKER Unavailable Unavailable COOK, B BRYAN LUGGAGE MAKER Unavailable Unavailable COOK, B BRYAN LUGGAGE MAKER Unavailable Unavailable COOK, B BRYAN LUGGAGE MAKER Unavailable Unavailable COOK, B BRYAN LUGGAGE MAKER Unavailable Unavailable COOK, B BRYAN LUGGAGE MAKER Unavailable Unavailable COOK, B BRYAN LUGGAGE MAKER Unavailable Unavailable COOK, B BRYAN LUGGAGE MAKER Unavailable Unavailable COOK, B BRYAN LUGGAGE MAKER Unavailable Unavailable COOK, B BRYAN LUGGAGE MAKER Unavailable Unavailable COOK, B BRYAN LUGGAGE MAKER Unavailable Unavailable COOK, B BRYAN LUGGAGE MAKER Unavailable Unavailable COOK, B BRYAN LUGGAGE MAKER Unavailable Unavailable COOK, B BRYAN LUGGAGE MAKER Unavailable Unavailable COOK, B BRYAN LUGGAGE MAKER Unavailable Unavailable COOK, B BRYAN LUGGAGE MAKER Unavailable Unavailable COOK, B BRYAN LUGGAGE MAKER Unavailable Unavailable COOK, B BRYAN LUGGAGE MAKER Unavailable Unavailable COOK, B BRYAN LUGGAGE MAKER Unavailable Unavailable COOK, B BRYAN LUGGAGE MAKER Unavailable Unavailable COOK, B BRYAN LUGGAGE MAKER Unavailable Unavailable COOK, B BRYAN LUGGAGE MAKER Unavailable Unavailable COOK, B BRYAN LUGGAGE MAKER Unavailable Unavailable COOK, B BRYAN LUGGAGE MAKER Unavailable Unavailable COOK, B BRYAN LUGGAGE MAKER Unavailable Unavailable COOK, B BRYAN LUGGAGE MAKER Unavailable Unavailable COOK, B BRYAN LUGGAGE MAKER Unavailable Unavailable COOK, B BRYAN LUGGAGE MAKER Unavailable Unavailable COOK, B BRYAN LUGGAGE MAKER Unavailable Unavailable COOK, B BRYAN LUGGAGE MAKER Unavailable Unavailable COOK, B BRYAN LUGGAGE MAKER Unavailable Unavailable COOK, B BRYAN LUGGAGE MAKER Unavailable Unavailable COOK, B BRYAN LUGGAGE MAKER Unavailable Unavailable COOK, B BRYAN LUGGAGE MAKER Unavailable Unavailable COOK, B BRYAN LUGGAGE MAKER Unavailable Unavailable COOK, B BRYAN LUGGAGE MAKER Unavailable Unavailable COOK, B BRYAN LUGGAGE MAKER Unavailable Unavailable COOK, B BRYAN LUGGAGE MAKER Unavailable Unavailable COOK, B BRYAN LUGGAGE MAKER Unavailable Unavailable COOK, B RBYAN LUGGAGE MAKER Unavailable Unavailable COOK, B BRYAN LUGGAGE MAKER Unavailable Unavailable COOK, B BRYAN LUGGAGE MAKER Unavailable Unavailable COOK, B BRYAN LUGGAGE MAKER Unavailable Unavailable COOK, B BRYAN LUGGAGE MAKER Unavailable Unavailable COOK, B BRYAN LUGGAGE MAKER Unavailable Unavailable COOK, B BRYAN LUGGAGE MAKER Unavailable Unavailable COOK, B BRYAN LUGGAGE MAKER Unavailable Unavailable COOK, B BRYAN LUGGAGE MAKER Unavailable Unavailable COOK, B BRYAN LUGGAGE MAKER Unavailable Unavailable COOK, B BRYAN LUGGAGE MAKER Unavailable Unavailable COOK, B BRYAN LUGGAGE MAKER Unavailable Unavailable COOK, B BRYAN LUGGAGE MAKER Unavailable Unavailable COOK, B BRYAN LUGGAGE MAKER Unavailable Unavailable COOK, B BRYAN LUGGAGE MAKER Unavailable Unavailable COOK, B BRYAN LUGGAGE MAKER Unavailable Unavailable COOK, B BRYAN LUGGAGE MAKER Unavailable Unavailable COOK, B BRYAN LUGGAGE MAKER Unavailable Unavailable COOK, B BRYAN LUGGAGE MAKER Unavailable Unavailable COOK, B BRYAN LUGGAGE MAKER Unavailable Unavailable COOK, B BRYAN LUGGAGE MAKER Unavailable Unavailable COOK, B BRYAN LUGGAGE MAKER Unavailable Unavailable COOK, B BRYAN LUGGAGE MAKER Unavailable Unavailable COOK, B BRYAN LUGGAGE MAKER Unavailable Unavailable [place], V SHI PA-C Unavailable Unavailable [place]is[place], V SHI PA-C Unavailable Unavailable [place], V SHI PA-C Unavailable Unavailable [place], V SHI PA-C Unavailable Unavailable [place], V SHI PA-C Unavailable Unavailable [place], V SHI PA-C Unavailable Unavailable Re-disclosure Warning The records that you are about to access may contain information from federally-assisted alcohol or drug abuse programs. If such information is present, then the following federally mandated warning applies: This information has been disclosed to you from records protected by federal confidentiality rules (42 CFR part 2). The federal rules prohibit you from making any further disclosure of this information unless further disclosure is expressly permitted by the written consent of the person to whom it pertains or as otherwise permitted by 42 CFR part 2. A general authorization for the release of medical or other information is NOT sufficient for this purpose. The Federal rules restrict any use of the information to criminally investigate or prosecute any alcohol or drug abuse patient.The records that you are about to access may contain highly sensitive health information, the redisclosure of which is protected by Article 27-F of the [facility] Public Health law. If you continue you may have access to information: Regarding HIV / AIDS; Provided by facilities licensed or operated by the [facility] Office of Mental Health; or Provided by the [facility] Office for People With Developmental Disabilities. If such information is present, then the following [facility] mandated warning applies: This information has been disclosed to you from confidential records which are protected by state law. State law prohibits you from making any further disclosure of this information without the specific written consent of the person to whom it pertains, or as otherwise permitted by law. Any unauthorized further disclosure in violation of state law may result in a fine or fci sentence or both. A general authorization for the release of medical or other information is NOT sufficient authorization for further disc losure. Family History Family Member Name Family Member Gender Family Member Status Date o f Status Description Data Source(s) Unknown Unknown Problem [facility] ([facility]) Encounters Encounter Providers Location Date Indications Data Source(s ) Unknown [address] [facility] [id number] 06/03/2020 12:00:00 AM EST eCW1 ([facility]) Outpatient Attender: SHI WRIGHT-SJPAbrahamGLADYS 12:00:00 AM EST - 06/02/2020 03:48:40 PM EST [facility] Outpatient [address] [facility] [address] 06/02/2020 12:00:00 AM EST eCW1 ([facility]) Office Visit, Est Pt., Level 2 PC [address] [place] [address] 05/11/2020 12:00:00 AM EST eCW1 ([facility]) Outpatient Attender: Yvette WRIGHT-SJPAbrahamGLADYS 12:00:00 AM EST [facility] Outpatient [address] [facility], [facility] [address] 04/27/2020 12:00:00 AM EST eCW1 ([facility]) Outpatient Attender: Yvette WRIGHT-SJPAbrahamGLADYS 10/2019 12:00:00 AM EST - 04/22/2020 10:51:09 AM EST [facility] Unknown [address] [facility] [address] 04/21/2020 12:00:00 AM EST eCW1 ([facility]) Outpatient Referrer: Magno Randolph MD [id number] 04/15/2020 11:0 4:00 PM EDT choledocholithiasis [facility] choledocholithiasis Outpatient [address] [facility] [address] 04/13/2020 12:00:00 AM EDT eCW1 ([facility]) Outpatient [address] [facility] [address] 03/30/2020 12:00:00 AM EDT eCW1 ([facility]) Outpatient [address] [facility] [address] 03/23/2020 12:00:00 AM EDT eCW1 ([facility]) Outpatient Attender: BRYAN ALBA NP Physical Therapy 02/19/2020 0 4:15:00 PM EDT [facility] ([facility]) Outpatient [address] [facility] [address] 01/02/2020 12:00:00 AM EDT eCW1 ([facility]) Unknown [address] [facility] [address] 12/30/2019 12:00:00 AM EDT eCW1 ([facility]) Office Visit, Est Pt., Level 2 PC [address] [place] [address] 11/18/2019 12:00:00 AM EDT eCW1 ([facility]) Outpatient Attender: Yvette KENSJBETHANY 06/2019 12:00:00 AM EDT [facility]cazar [address] [facility] [address] 10/14/2019 12:00:00 AM EDT eCW1 ([facility]) [facility] [place]ton[place] [address] [place] [address], [place] [address] 09/18/2019 12:00:00 AM EDT [facility] Otton[address] [place] [address] [place] [address] 09/02/2019 12:00:00 AM EDT [facility]) [facility] Ot[address] [place] [address] [place] [address] 08/28/2019 12:00:00 AM EDT [facility]CW1 [facility]) [facility] Ot[place] Hern[address]dez[address] [place] [address], [place] [address] 08/21/2019 12:00:00 AM EST [facility]CW1 [facility]) [facility] Alcazar [address] [place] [address] [place] [address] 08/15/2019 12:00:00 AM EST [facility]CW1 [facility]) Outpatient Attender: BRYAN ALBA NP Physical Therapy 08/11/2019 0 8:45:00 AM EST [facility] ([facility]) [facility] [place] Hern[address] [place] [address], [place] [address] 08/01/2019 12:00:00 AM EST [facility]CW1 [facility]) [facility] Ottoniel [address] [place] [address], [place] [address] 07/31/2019 12:00:00 AM EST [facility]CW1 [facility]) [facility] [place] [address] [place] [address] [place] [address] 07/18/2019 12:00:00 AM EST [facility]CW1 [facility]) Outpatient [address] [place] [address] [place] [address] 06/27/2019 12:00:00 AM EST [facility]CW1 [facility]) [facility] [place] [address] [place] [address] N [place] [address] 06/03/2019 12:00:00 AM EST [facility]CW1 [facility]) [facility] Alcazar [address] [place] [address] N [place] [address] 2019 12:00:00 AM EST eCW1 ([facility]) [facility] [address] [facility] [address] 05/05/2019 12:00:00 AM EST eCW1 ([facility]) Immunizations Vaccine Date Status Description Data Source(s) influenza, recombinant, quadrIvalent,injectable, prese rvative free 03/23/2020 11:33:00 AM EDT completed eCW1 ([facility]) influenza, recombinant, quadrIvalent,injectable, prese rvative free 03/23/2020 11:33:00 AM EDT completed eCW1 ([facility]) influenza, recombinant, quadrIvalent,injectable, prese rvative free 03/23/2020 11:33:00 AM EDT completed eCW1 ([facility]) influenza, recombinant, quadrIvalent,injectable, prese rvative free 03/23/2020 11:33:00 AM EDT completed eCW1 ([facility]) influenza, recombinant, quadrIvalent,injectable, prese rvative free 03/23/2020 11:33:00 AM EDT completed eCW1 ([facility]) influenza, recombinant, quadrIvalent,injectable, prese rvative free 03/23/2020 11:33:00 AM EDT completed eCW1 ([facility]) influenza, recombinant, quadrIvalent,injectable, prese rvative free 03/23/2020 11:33:00 AM EDT completed eCW1 ([facility]) influenza, recombinant, quadrIvalent,injectable, prese rvative free 03/23/2020 11:33:00 AM EDT completed eCW1 ([facility]) influenza, recombinant, quadrIvalent,injectable, prese rvative free 05/05/2019 11:51:00 AM EST completed eCW1 ([facility]) influenza, recombinant, quadrIvalent,injectable, prese rvative free 05/05/2019 11:51:00 AM EST completed eCW1 ([facility]) influenza, recombinant, quadrIvalent,injectable, prese rvative free 05/05/2019 11:51:00 AM EST completed eCW1 ([facility]) influenza, recombinant, quadrIvalent,injectable, prese rvative free 05/05/2019 11:51:00 AM EST completed eCW1 ([facility]) influenza, recombinant, quadrIvalent,injectable, prese rvative free 05/05/2019 11:51:00 AM EST completed eCW1 ([facility]) influenza, recombinant, quadrIvalent,injectable, prese rvative free 05/05/2019 11:51:00 AM EST completed eCW1 ([facility]) influenza, recombinant, quadrIvalent,injectable, prese rvative free 05/05/2019 11:51:00 AM EST completed eCW1 ([facility]) influenza, recombinant, quadrIvalent,injectable, prese rvative free 05/05/2019 11:51:00 AM EST completed eCW1 ([facility]) influenza, recombinant, quadrIvalent,injectable, prese rvative free 05/05/2019 11:51:00 AM EST completed eCW1 ([facility]) influenza, recombinant, quadrIvalent,injectable, prese rvative free 05/05/2019 11:51:00 AM EST completed eCW1 ([facility]) influenza, recombinant, quadrIvalent,injectable, prese rvative free 05/05/2019 11:51:00 AM EST completed eCW1 ([facility]) influenza, recombinant, quadrIvalent,injectable, prese rvative free 05/05/2019 11:51:00 AM EST completed eCW1 ([facility]) Medications Medication Brand Name Start Date Product Form Dose Route Admi nistrative Instructions Pharmacy Instructions Status Indications Reaction Description Data Source(s) 10 mg 06/23/2020 12:00:00 AM EST tablet 30 TAKE ONE TABLET BY MOUTH EVERY DAY TAKE ONE TABLET BY MOUTH EVERY DAY SOLD: 06/25/2020 [facility] 50 mg 05/12/2020 12:00:00 AM EST tablet 180 TAKE ONE TABLET BY MOUTH TWICE A DAY TAKE ONE TABLET BY MOUTH TWICE A DAY SOLD: 05/18/2020 [facility] 2.5 mg 05/08/2020 12:00:00 AM EST tablet 30 TAKE ONE TABLET BY MOUTH EVERY DAY TAKE ONE TABLET BY MOUTH EVERY DAY SOLD: 06/13/2020 [facility] 2.5 mg 05/08/2020 12:00:00 AM EST tablet 30 TAKE ONE TABLET BY MOUTH EVERY DAY TAKE ONE TABLET BY MOUTH EVERY DAY SOLD: 05/11/2020 [facility] Amlodipine 2.5 MG Oral Tablet amLODIPine (NORVASC) 2.5 MG tablet amLODIPine (NORVASC) 2.5 MG tablet 05/07/2020 12:00:00 AM EST 2.5 mg Oral active Essential hypertension Take 1 tablet (2.5 mg total) by mouth daily [facility] Essential hypertension 2.5 mg 04/23/2020 12:00:00 AM EST tablet 132 TAKE ONE TABLET BY MOUTH 3 TIMES A WEEK AND TAKE 2 TABLETS 4 TIMES A WEEK TAKE ONE TABLET BY MOUTH 3 TIMES A WEEK AND TAKE 2 TABLETS 4 TIMES A WEEK SOLD: 04/23/2020 [facility] 50 mg 02/13/2020 12:00:00 AM EDT tablet 180 TAKE ONE TABLET BY MOUTH TWICE A DAY TAKE ONE TABLET BY MOUTH TWICE A DAY SOLD: 02/17/2020 [facility] 125 mcg (0.125 mg) 01/23/2020 12:00:00 AM EDT tablet 90 TAKE ONE TABLET BY MOUTH EVERY DAY TAKE ONE TABLET BY MOUTH EVERY DAY SOLD: 01/25/2020 [facility] Digoxin 0.125 MG Oral Tablet 125 mcg (0.125 mg) DIGOXIN 01/23/2020 12:00:00 AM EDT tablet 90 TAKE ONE TABLET BY MOUTH MORGAN TAKE ONE TABLET BY MOUTH EVERY DAY SOLD: 05/04/2020 [facility] 20 mg 01/21/2020 12:00:00 AM EDT tablet 90 TAKE ONE TABLET BY MOUTH EVERY DAY TAKE ONE TABLET BY MOUTH EVERY DAY SOLD: 01/25/2020 [facility] 20 mg 01/21/2020 12:00:00 AM EDT tablet 90 TAKE ONE TABLET BY MOUTH EVERY DAY TAKE ONE TABLET BY MOUTH EVERY DAY SOLD: 05/04/2020 [facility] 10 mg 10/06/2019 12:00:00 AM EDT tablet 30 TAKE ONE TABLET BY MOUTH EVERY DAY TAKE ONE TABLET BY MOUTH EVERY DAY SOLD: 10/14/2019 [facility] 10 mg 10/06/2019 12:00:00 AM EDT tablet 30 TAKE ONE TABLET BY MOUTH EVERY DAY TAKE ONE TABLET BY MOUTH EVERY DAY SOLD: 03/23/2020 [facility] 10 mg 10/06/2019 12:00:00 AM EDT tablet 30 TAKE ONE TABLET BY MOUTH EVERY DAY TAKE ONE TABLET BY MOUTH EVERY DAY SOLD: 01/02/2020 [facility] 125 mcg (0.125 mg) 08/01/2019 12:00:00 AM EST tablet 30 TAKE ONE TABLET BY MOUTH EVERY DAY TAKE ONE TABLET BY MOUTH EVERY DAY SOLD: 10/06/2019 [facility] 125 mcg (0.125 mg) 08/01/2019 12:00:00 AM EST tablet 30 TAKE ONE TABLET BY MOUTH EVERY DAY TAKE ONE TABLET BY MOUTH EVERY DAY SOLD: 12/06/2019 [facility] 125 mcg (0.125 mg) 08/01/2019 12:00:00 AM EST tablet 30 TAKE ONE TABLET BY MOUTH EVERY DAY TAKE ONE TABLET BY MOUTH EVERY DAY SOLD: 01/02/2020 [facility] 125 mcg (0.125 mg) 08/01/2019 12:00:00 AM EST tablet 30 TAKE ONE TABLET BY MOUTH EVERY DAY TAKE ONE TABLET BY MOUTH EVERY DAY SOLD: 08/02/2019 [facility] 125 mcg (0.125 mg) 08/01/2019 12:00:00 AM EST tablet 30 TAKE ONE TABLET BY MOUTH EVERY DAY TAKE ONE TABLET BY MOUTH EVERY DAY SOLD: 09/07/2019 [facility] 125 mcg (0.125 mg) 08/01/2019 12:00:00 AM EST tablet 30 TAKE ONE TABLET BY MOUTH EVERY DAY TAKE ONE TABLET BY MOUTH EVERY DAY SOLD: 11/06/2019 [facility] 50 mg 07/31/2019 12:00:00 AM EST tablet 60 TAKE ONE TABLET BY MOUTH TWICE A DAY TAKE ONE TABLET BY MOUTH TWICE A DAY SOLD: 08/02/2019 [facility] 50 mg 07/31/2019 12:00:00 AM EST tablet 60 TAKE ONE TABLET BY MOUTH TWICE A DAY TAKE ONE TABLET BY MOUTH TWICE A DAY SOLD: 01/10/2020 [facility] 50 mg 07/31/2019 12:00:00 AM EST tablet 60 TAKE ONE TABLET BY MOUTH TWICE A DAY TAKE ONE TABLET BY MOUTH TWICE A DAY SOLD: 08/30/2019 [facility] 50 mg 07/31/2019 12:00:00 AM EST tablet 60 TAKE ONE TABLET BY MOUTH TWICE A DAY TAKE ONE TABLET BY MOUTH TWICE A DAY SOLD: 10/06/2019 [facility] 50 mg 07/31/2019 12:00:00 AM EST tablet 60 TAKE ONE TABLET BY MOUTH TWICE A DAY TAKE ONE TABLET BY MOUTH TWICE A DAY SOLD: 12/06/2019 [facility] 50 mg 07/31/2019 12:00:00 AM EST tablet 60 TAKE ONE TABLET BY MOUTH TWICE A DAY TAKE ONE TABLET BY MOUTH TWICE A DAY SOLD: 11/06/2019 [facility] 20 mg 07/19/2019 12:00:00 AM EST tablet 90 TAKE ONE TABLET BY MOUTH EVERY DAY TAKE ONE TABLET BY MOUTH EVERY DAY SOLD: 10/14/2019 [facility] 20 mg 07/19/2019 12:00:00 AM EST tablet 90 TAKE ONE TABLET BY MOUTH EVERY DAY TAKE ONE TABLET BY MOUTH EVERY DAY SOLD: 07/27/2019 [facility] 10 mg 07/15/2019 12:00:00 AM EST tablet 30 TAKE ONE TABLET BY MOUTH EVERY DAY TAKE ONE TABLET BY MOUTH EVERY DAY SOLD: 07/18/2019 [facility] 2.5 mg 04/10/2019 12:00:00 AM EDT tablet 143 TAKE 1 TABLET BY MOUTH 3 TIMES A WEEK THEN 2 TABLETS 4 TIMES A WEEK ONCE DAILY TAKE 1 TABLET BY MOUTH 3 TIMES A WEEK THEN 2 TABLETS 4 TIMES A WEEK ONCE DAILY SOLD: 01/10/2020 [facility] 2.5 mg 04/10/2019 12:00:00 AM EDT tablet 143 TAKE 1 TABLET BY MOUTH 3 TIMES A WEEK THEN 2 TABLETS 4 TIMES A WEEK ONCE DAILY TAKE 1 TABLET BY MOUTH 3 TIMES A WEEK THEN 2 TABLETS 4 TIMES A WEEK ONCE DAILY SOLD: 10/14/2019 [facility] Warfarin Sodium 2.5 MG Oral Tablet warfarin (COUMADIN) 2.5 MG tablet warfarin (COUMADIN) 2.5 MG tablet 04/10/2019 12:00:00 AM EDT aborted [facility] 2.5 mg 04/10/2019 12:00:00 AM EDT tablet 143 TAKE 1 TABLET BY MOUTH 3 TIMES A WEEK THEN 2 TABLETS 4 TIMES A WEEK ONCE DAILY TAKE 1 TABLET BY MOUTH 3 TIMES A WEEK THEN 2 TABLETS 4 TIMES A WEEK ONCE DAILY SOLD: 07/18/2019 [facility] 50 mg 02/14/2019 12:00:00 AM EDT tablet 60 TAKE ONE TABLET BY MOUTH TWICE A DAY TAKE ONE TABLET BY MOUTH TWICE A DAY SOLD: 07/01/2019 [facility] 50 mg 02/14/2019 12:00:00 AM EDT tablet 60 TAKE ONE TABLET BY MOUTH TWICE A DAY TAKE ONE TABLET BY MOUTH TWICE A DAY SOLD: 05/29/2019 [facility] 125 mcg (0.125 mg) 02/05/2019 12:00:00 AM EDT tablet 30 TAKE ONE TABLET BY MOUTH EVERY DAY TAKE ONE TABLET BY MOUTH EVERY DAY SOLD: 07/10/2019 [facility] 125 mcg (0.125 mg) 02/05/2019 12:00:00 AM EDT tablet 30 TAKE ONE TABLET BY MOUTH EVERY DAY TAKE ONE TABLET BY MOUTH EVERY DAY SOLD: 05/09/2019 [facility] 125 mcg (0.125 mg) 02/05/2019 12:00:00 AM EDT tablet 30 TAKE ONE TABLET BY MOUTH EVERY DAY TAKE ONE TABLET BY MOUTH EVERY DAY SOLD: 06/08/2019 [facility] Methimazole 10 MG Oral Tablet methimazole (TAPAZOLE) 1 0 MG tablet methimazole (TAPAZOLE) 10 MG tablet 01/28/2019 12:00:00 AM EDT 10 mg Oral aborted Take 10 mg by mouth daily [facility] Vitamin B 12 0.1 MG Oral Tablet cyanocobalamin 100 MCG tablet cyanocobalamin 100 MCG tablet 07/26/2017 12:00:00 AM EST aborted VITAMIN B12 TABLET [facility] Warfarin Sodium 5 MG Oral Tablet warfarin (COUMADIN) 5 MG tablet warfarin (COUMADIN) 5 MG tablet 07/26/2017 12:00:00 AM EST aborted [facility] Insurance Providers Payer name Policy type / Coverage type Policy ID Covered democrat ID Covered democrat's relationship to mcduffie Policy [place] Plan Information [employer] [id number] SP [id number] WE[employer] [id number] SP [id number] [facility] MEDICARE [id number] [facility] [id number] [facility] MEDICARE [id number] ANSI-Medicare Part B [id number] ANSI-Commercial [id number] ANSI-Health Maintenance Organization ( O) [id number] ANSI-Medicare Part B [id number] ANSI-Commercial [id number] [facility]-Health Maintenance Organization ( O) [id number] ANSI-Medicare Part B [id number] ANSI-Medicare Part B [id number] ANSI-Commercial [id number] [facility]-Health Maintenance Organization ( O) [id number] ANSI-Medicare Part B [id number] [id number]-3c2y-151c-h5dd-9d928tzw3xm0 ANSI-Medicare Part B [id number] ANSI-Medicare Part B [id number] ANSI-Commercial 8915vg3o-o31y-9o8v-7x99-[id number] 9510vg0c-p81y-6h3g-8p43-amk1j86013j5 ANSI-Medicare Part B [id number]-[id number] ANSI-Health Maintenance Organization ( O) [id number]-[id number] ANSI-Commercial 386x90gl-61b1-23s2-0ij2-zp0di9k9a3r5 398g46cc-42t2-92g7-0gm9-fz1of1w0y3a2 ANSI-Medicare Part B [id number] ANSI-Health Maintenance Organization ( O) [id number]-7n25-29wf-ek48fq3u49cz [id number]-6i66-13ra-ih52ay0d50mp ANSI-Medicare Part B [id number] [facility] [facility] Medigap Part B [id number] Self [id number] [place] Primary [id number] Self [id number] [employer] Options Medigap Part B [id number] Self [id number] [employer] Commercial [id number] Self [id number] ANSI-Commercial [id number]-v8xa-[id number]-u5as-[id number] ANSI-Medicare Part B [id number] ANSI-Health Maintenance Organization ( O) [id number] ANSI-Medicare Part B [id number] ANSI-Medicare Part B [id number]-[id number] [facility] ( [facility]) [id number]-85a1-1q58-87g9e2uts73z ANSI-Medicare Part B [id number] ANSI-Commercial [id number]-6f9i-47fk-[id number]-3yol-1t8b-95zo-[id number] ANSI-Medicare Part B [id number]-[id number] ANSI-Commercial und1vlzh-7cf9-75i2-co17-233882vf95zb frx8lmww-4os5-20g7-pp32-128803un73bt ANSI-Health Maintenance Organization ( O) [id number]-c3fw-49utez173z9h [id number]-y6bj-16rzco243g3p ANSI-Medicare Part B [id number]-[id number] ANSI-Commercial [id number]-k8j4-32i4-y7s2-j1r4152o83yc [id number]-h6c6-42y1-a4f2-t3w1057b62mv ANSI-Health Maintenance Organization ( O) [id number]-0976-p68o-8h6x54c78384 ANSI-Medicare Part B [id number] ANSI-Medicare Part B [id number]-63m5-s2g9-367rai4g1nuu ANSI-Medicare Part B [id number] [id number]-xf77-9861-[id number] ANSI-Medicare Part B [id number] 8rig30od-2uzf-1362-07r7-4z0kv4t50mck ANSI-Commercial 84z9t742-r82l-99ok-5944-kr9y067z73ra 79j5u102-h05m-31tn-9206-xk0z831c66ix ANSI-Health Maintenance Organization ( O) 30yvhk73-js79-20rl-3bo2-x33gyr9n00s0 88rxsl06-og68-82ee-4xd2-s79rwo1t17w7 ANSI-Commercial 4659bl37-7539-8050-z18t-89oc0g14h437 7734fe70-2004-2105-c54h-14sk1b61d315 ANSI-Medicare Part B [id number]-jjdx-[id number] ANSI-Medicare Part B [id number] ANSI-Health Maintenance Organization ( O) [id number]-raoz0a35s86v [id number]-7154-w372-iqwo6o06t43j ANSI-Medicare Part B [id number]-z3na-70t7-2ack-716358eki79w ANSI-Health Maintenance Organization ( O) [id number]-x7qs-x4djks8q2x90 kr6we0i4-5073-4xh7-c5tn-y1nhqp3a8l76 ANSI-Commercial [id number]-q39u-0175-0xjz-[id number]-d72s-8398-3gct-[id number] ANSI-Medicare Part B [id number]-[id number] [facility] Part B [id number] Self [id number] Medicare [place] Medicare Primary [id number] Self [id number] Tod[employer] Options Commercial [id number] Self [id number] ANSI-Commercial [id number]-g0jw-[id number] [id number]-p3wr-0g9ugv30029w ANSI-Medicare Part B [id number]-[id number] ANSI-Medicare Part B [id number] ANSI-Medicare Part B [id number]-366a-dfm18x7h2oi7 ANSI-Medicare Part B [id number] [id number]-l67k-t4pc0uq8bm44 ANSI-Commercial 37h49n36-16p0-70go-2d1v-65867gcn7525 96i99o86-95u0-67ws-9t4z-59746gns1267 ANSI-Commercial [id number]-t1r9-0c85-t215-t41eau58d134 8c86806c-n0u4-8q15-s112-i60ghn76n642 ANSI-Medicare Part B [id number]-cfk6-61kb-e5j4-50g7w6q239v2 ANSI-Medicare Part B [id number]8z6j864e4m9 TODAYS OPTIONS [id number] SP [id number] ANSI-Medicare Part B [id number] ANSI-Medicare Part B [id number]-w9wzi36j3e9f [id number]-[id number]-73c2-s6cqz24q8j1p ANSI-Commercial 614u3833-13xb-04s3-63a6-119l0nv4hx01 [id number]-48x6-80u1-777n4ru5js00 ANSI-Commercial [id number]-s596-434g-8p4x-71a93u52r6f6 [id number]-g939-419w-3r9m-72g05s67t1u9 ANSI-Medicare Part B [id number]-[id number] ANSI-Medicare Part B [id number] ANSI-Commercial 5296k563-s989-982s-9202-3x09l0cm2rg6 5887l334-y204-348a-6239-4w60b1zm9aj7 ANSI-Medicare Part B [id number] ANSI-Medicare Part B [id number]-8ov3-91c4-[id number] ANSI-Medicare Part B [id number]-[id number] ANSI-Medicare Part B [id number]e7k ANSI-Commercial 4lp0ht33-7278-7422-j688-z662k7uu090v 7nl7jl88-5509-7680-h446-j311f0xp308v ANSI-Medicare Part B [id number]-[id number]-[id number] ANSI-Commercial [id number]-90j7-6570-8qmx-[id number] [id number]-17c9-1879-5lya-[id number] ANSI-Medicare Part B [id number] [id number]-vy97-[id number] ANSI-Commercial [id number]-52oz-87u3-4840y8vx6i52 [id number]-30qp-20q1-8840h6pv7y85 ANSI-Medicare Part B [id number] ANSI-Medicare Part B [id number] [facility] Healthcare Options [facility] Part B [id number] Self [id number] Medicare [place] Medicare Primary [id number] Self [id number] [employer] Options Commercial [id number] Self [id number] ANSI-Medicare Part B [id number] ANSI-Medicare Part B [id number] ANSI-Commercial [id number]-[id number] TODAYS OPTIONS [id number] SP [id number] [facility] Medigap Part B [id number] Self [id number] Medicare [place] Medicare Primary [id number] Self [id number] Tod[employer] Options Commercial [id number] Self [id number] [facility] [facility] Medigap Part B [id number] Self [id number] Medicare [place] Medicare Primary [id number] Self [id number] Tod[employer] Options Commercial [id number] Self [id number] MEDICARE [id number] SP [id number] A MEDICARE [id number] SP [id number] A [facility] [facility] OPTIONS [id number] SP [id number] [facility] [facility] Medigap Part B [id number] Self [id number] Medicare [place] Medicare Primary [id number] Self [id number] [employer] Commercial [id number] Self [id number] [facility] [facility] Medigap Part B [id number] Self [id number] Medicare [place] Medicare Primary [id number] Self [id number] [facility] [facility] Medigap Part B [id number] Self [id number] Medicare [place] Medicare Primary [id number] Self [id number] [facility] [facility] Medigap Part B [id number] Self [id number] Medicare [place] Medicare Primary [id number] Self [id number] [facility] [facility] Medigap Part B [id number] Self [id number] [place] Medicare Primary [id number] Self [id number] MEDICARE [id number] SP [id number] [facility] [facility] Medigap Part B [id number] Self [id number] Medicare [place] Medicare Primary [id number] Self [id number] AARP O [id number] S [id number] MEDICARE C [id number] S [id number] [facility] Medigap Part B [id number] Self [id number] Medicare [place] Medicare Primary [id number] Self [id number] [facility] [facility] Medigap Part B Self Medicare [place] Medicare Primary Self [facility] [facility] OPTIONS [id number] Patient [id number] MEDICARE PART A [id number] Patient [id number] Problems, Conditions, and Diagnoses Code Display Name Description Problem Type Effective Dates Data Source(s) Z01.818 Preoperative clearance Preoperative clearance [id number] 06/02/2020 12:00:00 AM EST [facility] K80.20 [id number] 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 Problem 06/02/2020 12:00:00 AM EST [facility] ([facility]) Z95.2 [id number] History of aortic valve replacement Prob ana 06/02/2020 12:00:00 AM EST [facility] ([facility]) I10 Essential hypertension Essential hypertension [id number] 05/07/2020 12:00:00 AM EST [facility] I48.19 [id number] Persistent atrial fibrillation Problem 11/18/2019 12:00:00 AM EDT [facility] ([facility]) Z95.2 Presence of prosthetic heart valve Presence of p rosthetic heart valve Diagnosis 06/02/2020 02:49:55 PM EST [facility] I10 Essential (primary) hypertension Essential (primary) h ypertension Diagnosis 06/02/2020 02:49:55 PM EST [facility] I48.19 Other persistent atrial fibrillation Oth er persistent atrial fibrillation Diagnosis 06/02/2020 02:49:55 PM [facility] Z01.818 Encounter for other preprocedural examin ation Encounter for other preprocedural examin Diagnosis 06/02/2020 02:49:55 PM [facility] choledocholithiasis choledocholithiasis Diagnosis 020 11:04:00 PM [facility] Surgeries/Procedures Procedure Description Date Indications Data Source(s) POCT AMB EKG POCT AMB EKG Routine 06/02/2020 3:59 PM EST Preoperative clearance 06/02/2020 08:59:00 PM EST Preoperative c learance [facility] Preoperative clearance PROTHROMBIN TIME POCT INR Routine 04/29/2020 04/29/2020 12:00:00 AM EST [facility] HEPATIC FUNCTION PANEL HEPATIC FUNCTION PANEL Routine 04/29/2020 04/29/2020 12:00:00 AM EST [facility] BASIC METABOLIC PANEL CALCIUM TOTAL BASIC METABOLIC PANEL Routine 04/29/2020 04/29/2020 12:00:00 AM EST [facility] ECG ROUTINE ECG W/LEAST 12 LDS W/I&R POCT AMB EKG Routine 04/22/2020 10:50 AM EST Persistent atrial fibrillation 04/22/2020 03:50:00 PM EST Pe rsistent atrial fibrillation [facility] Persistent atrial fibrillation BLOOD COUNT COMPLETE AUTO&AUTO DIFRNTL WBC COUNT CBC AND DIFFER ENTIAL Routine 04/16/2020 04/16/2020 12:00:00 AM EDT [facility] THYROID STIMULATING HORMONE TSH TSH Routine 04/16/2020 04/16/2020 12:00:00 AM EDT [facility] HEPATIC FUNCTION PANEL HEPATIC FUNCTION PANEL Routine 04/16/2020 04/16/2020 12:00:00 AM EDT [facility] BASIC METABOLIC PANEL CALCIUM TOTAL BASIC METABOLIC PANEL Routine 04/16/2020 04/16/2020 12:00:00 AM EDT [facility] BLOOD COUNT COMPLETE AUTO&AUTO DIFRNTL WBC COUNT CBC AND DIFFER ENTIAL Routine 04/15/2020 04/15/2020 12:00:00 AM EDT [facility] HEPATIC FUNCTION PANEL HEPATIC FUNCTION PANEL Routine 04/15/2020 04/15/2020 12:00:00 AM EDT [facility] BASIC METABOLIC PANEL CALCIUM TOTAL BASIC METABOLIC PANEL Routine 04/15/2020 04/15/2020 12:00:00 AM EDT [facility] Immunization: Flublok Quadrivalent (18 years & older) 0.5mL IM (Influenza) 03/23/2020 12:00:00 AM EDT eCW1 ([facility]) PROTHROMBIN TIME 10/14/2019 12:00:00 AM EDT eCW1 ([facility]) Office Visit, Est Pt., Level 2 PC 10/14/2019 12:00:00 AM EDT eCW1 ([facility]) Office Visit, Est Pt., Level 2 FC 10/14/2019 12:00:00 AM EDT eCW1 ([facility]) Annual wellness visit, includes a person alized prevention plan of service (pps), subsequent visit 08/21/2019 12:00:00 AM EST eCW1 ([facility]) Office Visit, Est Pt., Level 3 FC 05/05/2019 12:00:00 AM EST eCW1 ([facility]) RIV4 VACC RECOMBINANT DNA IM 05/05/2019 12:00:00 AM ES T eCW1 ([facility]) Administration of influenza virus vaccine 05/05/2019 1 2:00:00 AM EST eCW1 ([facility]) Results ID Date Data Source [id number] 06/24/2020 10:30:00 AM EST [facility] Name Value Range Interpretation Code Description Data Patria rce(s) Supporting Document(s) SARS coronavirus 2 RNA Not Detected [facility] This lab was ordered by [facility] and reported by [facility]. ID Date Data Source LIPASE 04/29/2020 10:46:14 AM EST eCW1 ([facility]) Name Value Range Interpretation Code Description Data Patria rce(s) Supporting Document(s) 419 LIPASE eCW1 ([facility]) ID Date Data Source Comprehensive Metabolic Profile (CMP) 04/29/2020 10:46:14 AM EST eCW1 ([facility]) Name Value Range Interpretation Code Description Data Patria rce(s) Supporting Document(s) 32 BLOOD UREA NITROGEN eCW1 ([facility]) 86 GLUCOSE, FASTING eCW1 ([facility]) 138 SODIUM LEVEL eCW1 ([facility]) 48.0 GLOMERULAR FILTRATION RATE eCW 1 ([facility]) 4.9 POTASSIUM SERUM eCW1 ([facility]) 1.16 CREATININE FOR GFR eCW1 ([facility]) 26 CARBON DIOXIDE LEVEL eCW1 ([facility]) 24 AST/SGOT eCW1 ([facility]) 105 CHLORIDE LEVEL eCW1 ([facility]) 9.2 CALCIUM LEVEL eCW1 ([facility]) 90 ALKALINE PHOSPHATASE eCW1 ([facility]) 0.5 BILIRUBIN,TOTAL eCW1 ([facility]) 7.5 TOTAL PROTEIN eCW1 ([facility]) 25 ALT/SGPT eCW1 ([facility]) 4.0 ALBUMIN eCW1 ([facility]) 1.1 ALBUMIN/GLOBULIN RATIO eCW1 ([facility]) ID Date Data Source PT-INR Fingerstick 04/27/2020 12:53:21 PM EST eCW1 ([facility]) Name Value Range Interpretation Code Description Data Patria rce(s) Supporting Document(s) 1.6 INR eCW1 ([facility]) MA Verified Patient's Name and DO B eCW1 ([facility]) 5 mg ROW Current Dose 2 eCW1 ([facility]) 2.5 mg Tab Strength eCW1 ([facility]) 2.5 mg MWF Current Dose 1 eCW1 ([facility]) 2-3 Therapeutic Range [facility]) Yes Internal QC Acceptable (Y/N) e CW1 ([facility]) A- Fib Indication for Anticoagul ation eCW1 ([facility]) No Recent Bleeding eCW1 ([facility]) Education Given (Date / Initia ls) eCW1 ([facility]) New Dose 2 eCW1 ([facility]) 5 mg TWTH, then usual New Dose 1 eCW1 ([facility]) 2 w Next PT-INR eCW1 ([facility]) Weekly Total eCW1 ([facility]) - eCW1 ([facility]) ID Date Data Source [id number] 04/15/2020 11:28:02 PM EDT [facility] Name Value Range Interpretation Code Description Data Patria rce(s) Supporting Document(s) Progress Note [facility] ITSCLt3zAvHTBaDh47/[id number] lbm [file] [id number]+[id number]9R ID Date Data Source [id number] 01/29/2020 09:35:00 AM EDT [facility] ([facility]) Name Value Range Interpretation Code Description Data Patria rce(s) Supporting Document(s) Free T4 1.24 ng/dL 0.76-1.46 [facility] ([facility]) Thyroid Stimulating Hormone 0.569 uIU/ML 0.358-3.740 [facility] ([facility]) ID Date Data Source [id number] 07/30/2019 02:10:00 PM EST [facility] ([facility]) Name Value Range Interpretation Code Description Data Patria rce(s) Supporting Document(s) Thyroid Stimulating Hormone 0.409 uIU/ML 0.358-3.740 [facility] ([facility]) Free T4 1.49 ng/dL 0.76-1.46 [facility] ([facility]) Procedure Social History Code Duration Value Status Description Data Source(s ) Smoking 06/02/2020 12:00:00 AM EST Never Smoker completed Never S moker eCW1 ([facility]) Smoking 06/02/2020 12:00:00 AM EST Never Smoker completed Never S moker eCW1 ([facility]) Smoking 05/11/2020 12:00:00 AM EST Never Smoker completed Never S moker eCW1 ([facility]) Alcohol intake 05/07/2020 12:00:00 AM EST Not Currently completed [facility] Smoking 05/07/2020 12:00:00 AM EST Never smoker completed Never s moker [facility] Smoking 04/27/2020 12:00:00 AM EST Never Smoker completed Never S moker eCW1 ([facility]) Smoking 04/13/2020 12:00:00 AM EDT Never Smoker completed Never S moker eCW1 ([facility]) Smoking 04/13/2020 12:00:00 AM EDT Never Smoker completed Never S moker eCW1 ([facility]) Smoking 03/30/2020 12:00:00 AM EDT Never Smoker completed Never S moker eCW1 ([facility]) Smoking 03/30/2020 12:00:00 AM EDT Never Smoker completed Never S moker eCW1 ([facility]) Smoking 02/19/2020 12:00:00 AM EDT Patient has never smoked co mpleted Patient has never smoked [facility] ([facility]) Smoking 01/02/2020 12:00:00 AM EDT Never Smoker completed Never S moker eCW1 ([facility]) Smoking 11/18/2019 12:00:00 AM EDT Never Smoker completed Never S moker eCW1 ([facility]) Smoking 11/18/2019 12:00:00 AM EDT Never Smoker completed Never S moker eCW1 ([facility]) Alcohol intake 10/17/2019 12:00:00 AM EDT Not Currently completed [facility] Smoking 10/17/2019 12:00:00 AM EDT Never smoker completed Never s moker [facility] Vital Signs ID Date Data Source UNK Name Value Range Interpretation Code Description Data Source(s) Oxygen saturation in Arterial blood by Pulse oximetry 97 % 97 % [facility] Body mass index (BMI) [Ratio] 22.72 kg/m2 22.72 kg/m2 [facility] Body weight 56.337 kg 56.337 kg [facility] Body height 157.5 cm 157.5 cm [facility] Heart rate 58 /min 58 /min [facility] Diastolic blood pressure 74 mm[Hg] 74 mm[Hg] [facility] Systolic blood pressure 118 mm[Hg] 118 mm[Hg] [facility] Diastolic blood pressure 74 mm[Hg] 74 mm[Hg] eCW1 ([facility]) Systolic blood pressure 122 mm[Hg] 122 mm[Hg] e CW1 ([facility]) Body temperature 97.6 [degF] 97.6 [degF] eCW1 ( [facility]) Respiratory rate 18 /min 18 /min eCW1 ([facility]) Heart rate 77 /min 77 /min eCW1 ([facility]) Body mass index (BMI) [Ratio] 25.12 kg/m2 25.12 kg/m2 eCW1 ([facility]) Body height 59 [in_i] 59 [in_i] eCW1 ([facility]) Body weight 124.4 [lb_av] 124.4 [lb_av] eCW1 ([facility]) Diastolic blood pressure 72 mm[Hg] 72 mm[Hg] eCW1 ([facility]) Systolic blood pressure 122 mm[Hg] 122 mm[Hg] e CW1 ([facility]) Body temperature 98.4 [degF] 98.4 [degF] eCW1 ( [facility]) Respiratory rate 18 /min 18 /min eCW1 ([facility]) Heart rate 74 /min 74 /min eCW1 ([facility]) Body mass index (BMI) [Ratio] 25.32 kg/m2 25.32 kg/m2 eCW1 ([facility]) Body height 59 [in_i] 59 [in_i] eCW1 ([facility]) Body weight 125.4 [lb_av] 125.4 [lb_av] eCW1 ([facility]) Body mass index (BMI) [Ratio] 22.31 kg/m2 22.31 kg/m2 [facility] Body weight 55.339 kg 55.339 kg [facility] Body height 157.5 cm 157.5 cm [facility] Heart rate 78 /min 78 /min [facility] Diastolic blood pressure 74 mm[Hg] 74 mm[Hg] [facility] Systolic blood pressure 148 mm[Hg] 148 mm[Hg] [facility] Body weight 55.509 kg 55.509 kg MEDENT ([facility], ) [place] body weight 100 [lb_av] 100 [lb_av] MEDEN T ([facility], ) Body mass index (BMI) [Ratio] 24.7 kg/m2 24.7 k g/m2 [facility]ENT ([facility], ) Body weight 122.38 [lb_av] 122.38 [lb_av] MEDEN T ([facility], ) Body height 59 [in_i] 59 [in_i] MEDENT ([facility], ) 4'11" [facility] 85 /min 85 /[facility] Diastolic blood pressure 85 mm[Hg] 85 mm[Hg] MEDENT ([facility]) Systolic blood pressure 132 mm[Hg] 132 mm[Hg] M EDENT ([facility], ) Diastolic blood pressure 84 mm[Hg] 84 mm[Hg] eCW1 ([facility]) Systolic blood pressure 110 mm[Hg] 110 mm[Hg] e CW1 ([facility]) Body temperature 98.5 [degF] 98.5 [degF] eCW1 ( [facility]) Respiratory rate 18 /min 18 /min eCW1 ([facility]) Heart rate 80 /min 80 /min eCW1 ([facility]) Body mass index (BMI) [Ratio] 24.88 kg/m2 24.88 kg/m2 eCW1 ([facility]) Body height 59 [in_i] 59 [in_i] eCW1 ([facility]) Body weight 123.2 [lb_av] 123.2 [lb_av] eCW1 ([facility]) Oxygen saturation in Arterial blood by Pulse oximetry 98 % 98 % [facility] Body mass index (BMI) [Ratio] 22.68 kg/m2 22.68 kg/m2 [facility] Body weight 56.246 kg 56.246 kg [facility] Body height 157.5 cm 157.5 cm [facility] Heart rate 54 /min 54 /min [facility] Diastolic blood pressure 84 mm[Hg] 84 mm[Hg] [facility] Systolic blood pressure 130 mm[Hg] 130 mm[Hg] [facility] Body temperature 96.8 [degF] 96.8 [degF] eCW1 ( [facility]) Respiratory rate 18 /min 18 /min eCW1 ([facility]) Heart rate 88 /min 88 /min eCW1 ([facility]) Body mass index (BMI) [Ratio] 25.81 kg/m2 25.81 kg/m2 eCW1 ([facility]) Body height 59 [in_i] 59 [in_i] eCW1 ([facility]) Body weight 127.8 [lb_av] 127.8 [lb_av] eCW1 ([facility]) Diastolic blood pressure 74 mm[Hg] 74 mm[Hg] eCW1 ([facility]) Systolic blood pressure 118 mm[Hg] 118 mm[Hg] e CW1 ([facility]) Body temperature 97.0 [degF] 97.0 [degF] eCW1 ( [facility]) Respiratory rate 18 /min 18 /min eCW1 ([facility]) Heart rate 61 /min 61 /min eCW1 ([facility]) Body mass index (BMI) [Ratio] 25.49 kg/m2 25.49 kg/m2 eCW1 ([facility]) Body height 59 [in_i] 59 [in_i] eCW1 ([facility]) Body weight 126.2 [lb_av] 126.2 [lb_av] eCW1 ([facility]) Diastolic blood pressure 72 mm[Hg] 72 mm[Hg] eCW1 ([facility]) Systolic blood pressure 116 mm[Hg] 116 mm[Hg] e CW1 ([facility]) Body temperature 97.5 [degF] 97.5 [degF] eCW1 ( [facility]) Respiratory rate 18 /min 18 /min eCW1 ([facility]) Heart rate 73 /min 73 /min eCW1 ([facility]) Body mass index (BMI) [Ratio] 26.17 kg/m2 26.17 kg/m2 eCW1 ([facility]) Body height 59 [in_i] 59 [in_i] eCW1 ([facility]) Body weight 129.6 [lb_av] 129.6 [lb_av] eCW1 ([facility]) Body mass index (BMI) [Ratio] 26.5 kg/m2 26.5 k g/m2 MEDENT ([place] [facility] Body weight 129.00 [lb_av] 129.00 [lb_av] MEDEN T ([facility]) Body height 58.5 [in_i] 58.5 [in_i] MEDENT ([facility]) 4'10.50" Diastolic blood pressure 80 mm[Hg] 80 mm[Hg] MEDENT ([facility]) Systolic blood pressure 124 mm[Hg] 124 mm[Hg] M EDENT ([facility]) Diastolic blood pressure 72 mm[Hg] 72 mm[Hg] eCW1 ([facility]) Systolic blood pressure 112 mm[Hg] 112 mm[Hg] e CW1 ([facility]) Body temperature 98.0 [degF] 98.0 [degF] eCW1 ( [facility]) Respiratory rate 18 /min 18 /min eCW1 ([facility]) Heart rate 72 /min 72 /min eCW1 ([facility]) Body mass index (BMI) [Ratio] 25.97 kg/m2 25.97 kg/m2 W1 ([facility]) Body height 59 [in_i] 59 [in_i] eCW1 ([facility]) Body weight 128.6 [lb_av] 128.6 [lb_av] eCW1 ([facility]) Diastolic blood pressure 80 mm[Hg] 80 mm[Hg] eCW1 ([facility]) Systolic blood pressure 122 mm[Hg] 122 mm[Hg] e CW1 ([facility]) Body temperature 96 [degF] 96 [degF] eCW1 ([facility]) Respiratory rate 18 /min 18 /min eCW1 ([facility]) Heart rate 94 /min 94 /min eCW1 ([facility]) Body mass index (BMI) [Ratio] 25.89 kg/m2 25.89 kg/m2 eCW1 ([facility]) Body height 59 [in_i] 59 [in_i] eCW1 ([facility]) Body weight 128.2 [lb_av] 128.2 [lb_av] eCW1 ([facility]) Diastolic blood pressure 72 mm[Hg] 72 mm[Hg] eCW1 ([facility]) Systolic blood pressure 110 mm[Hg] 110 mm[Hg] e CW1 ([facility]) Body temperature 96.8 [degF] 96.8 [degF] eCW1 ( [facility]) Respiratory rate 18 /min 18 /min eCW1 ([facility]) Heart rate 98 /min 98 /min eCW1 ([facility]) Body mass index (BMI) [Ratio] 25.28 kg/m2 25.28 kg/m2 W1 ([facility]) Body height 59 [in_us] 59 [in_us] eCW1 ([facility]) Body weight Measured 125.2 [lb_av] 125.2 [lb_av ] eCW1 ([facility]) Diastolic blood pressure 70 mm[Hg] 70 mm[Hg] eCW1 ([facility]) Systolic blood pressure 112 mm[Hg] 112 mm[Hg] e CW1 ([facility]) Body temperature 96.4 [degF] 96.4 [degF] eCW1 ( [facility]) Respiratory rate 18 /min 18 /min eCW1 ([facility]) Heart rate 96 /min 96 /min eCW1 ([facility]) Body mass index (BMI) [Ratio] 24.96 kg/m2 24.96 kg/m2 eCW1 ([facility]) Body height 59 [in_us] 59 [in_us] eCW1 ([facility]) Body weight Measured 123.6 [lb_av] 123.6 [lb_av ] eCW1 ([facility]) Systolic blood pressure 118 mm[Hg] 118 mm[Hg] e CW1 ([facility]) Body temperature 97.2 [degF] 97.2 [degF] eCW1 ( [facility]) Respiratory rate 18 /min 18 /min eCW1 ([facility]) Heart rate 66 /min 66 /min eCW1 ([facility]) Body mass index (BMI) [Ratio] 25.04 kg/m2 25.04 kg/m2 eCW1 ([facility]) Body height 59 [in_us] 59 [in_us] eCW1 ([facility]) Body weight Measured 124 [lb_av] 124 [lb_av] eC W1 ([facility]) Diastolic blood pressure 76 mm[Hg] 76 mm[Hg] eCW1 ([facility]) Oxygen saturation in Arterial blood by Pulse oximetry 97 % 97 % MEDENT ([facility] ) Body mass index (BMI) [Ratio] 25.8 kg/m2 25.8 k g/m2 MEDENT ([facility] ) Body weight 125.50 [lb_av] 125.50 [lb_av] MEDEN T ([facility] ) Body height 58.5 [in_i] 58.5 [in_i] MEDENT ([facility] 4'10.50" Heart rate 61 /min 61 /min MEDENT ([facility] ) Diastolic blood pressure 72 mm[Hg] 72 mm[Hg] MEDENT ([facility] ) Systolic blood pressure 122 mm[Hg] 122 mm[Hg] M EDENT ([facility] ) Diastolic blood pressure 62 mm[Hg] 62 mm[Hg] eCW1 ([facility]) Systolic blood pressure 110 mm[Hg] 110 mm[Hg] e CW1 ([facility]) Body temperature 96.4 [degF] 96.4 [degF] eCW1 ( [facility]) Respiratory rate 18 /min 18 /min eCW1 ([facility]) Heart rate 66 /min 66 /min eCW1 ([facility]) Body mass index (BMI) [Ratio] 24.44 kg/m2 24.44 kg/m2 eCW1 ([facility]) Body height 59 [in_us] 59 [in_us] eCW1 ([facility]) Body weight Measured 121 [lb_av] 121 [lb_av] eC W1 ([facility]) Diastolic blood pressure 64 mm[Hg] 64 mm[Hg] eCW1 ([facility]) Systolic blood pressure 108 mm[Hg] 108 mm[Hg] e CW1 ([facility]) Body temperature 96.4 [degF] 96.4 [degF] eCW1 ( [facility]) Respiratory rate 18 /min 18 /min eCW1 ([facility]) Heart rate 74 /min 74 /min eCW1 ([facility]) Body mass index (BMI) [Ratio] 24.88 kg/m2 24.88 kg/m2 eCW1 ([facility]) Body height 59 [in_i] 59 [in_i] eCW1 ([facility]) Body weight 123.2 [lb_av] 123.2 [lb_av] eCW1 ([facility]) Diastolic blood pressure 74 mm[Hg] 74 mm[Hg] eCW1 ([facility]) Systolic blood pressure 116 mm[Hg] 116 mm[Hg] e CW1 ([facility]) Body temperature 96.5 [degF] 96.5 [degF] eCW1 ( [facility]) Respiratory rate 18 /min 18 /min eCW1 ([facility]) Heart rate 102 /min 102 /min eCW1 ([facility]) Body mass index (BMI) [Ratio] 23.83 kg/m2 23.83 kg/m2 eCW1 ([facility]) Body height 59 [in_us] 59 [in_us] eCW1 ([facility]) Body weight Measured 118.0 [lb_av] 118.0 [lb_av ] eCW1 ([facility]) Diastolic blood pressure 72 mm[Hg] 72 mm[Hg] eCW1 ([facility]) Systolic blood pressure 114 mm[Hg] 114 mm[Hg] e CW1 ([facility]) Body temperature 97.4 [degF] 97.4 [degF] eCW1 ( [facility]) Respiratory rate 18 /min 18 /min eCW1 ([facility]) Heart rate 76 /min 76 /min eCW1 ([facility]) Body mass index (BMI) [Ratio] 24.56 kg/m2 24.56 kg/m2 eCW1 ([facility]) Body height 59 [in_us] 59 [in_us] eCW1 ([facility]) Body weight Measured 121.6 [lb_av] 121.6 [lb_av ] eCW1 ([facility]) Diastolic blood pressure 70 mm[Hg] 70 mm[Hg] eCW1 ([facility]) Systolic blood pressure 112 mm[Hg] 112 mm[Hg] e CW1 ([facility]) Body temperature 96.8 [degF] 96.8 [degF] eCW1 ( [facility]) Respiratory rate 18 /min 18 /min eCW1 ([facility]) Heart rate 79 /min 79 /min eCW1 ([facility]) Body mass index (BMI) [Ratio] 23.87 kg/m2 23.87 kg/m2 eCW1 ([facility]) Body height 59 [in_us] 59 [in_us] eCW1 ([facility]) Body weight Measured 118.2 [lb_av] 118.2 [lb_av ] eCW1 ([facility]) ID Date Data Source [id number] 04/15/2020 11:28:02 PM [facility] Name Value Range Interpretation Code Description Data Source(s) [facility]SF[facility] FROM [facility] Patient Treatment Plan of Care Planned Activity Planned Date Details Description Data Source (s) Amlodipine 2.5 MG Oral Tablet 05/07/2020 12:00:00 AM EST [facility] Warfarin Sodium 2.5 MG Oral Tablet 04/10/2019 12:00:00 AM EDT [facility] Methimazole 10 MG Oral Tablet 01/28/2019 12:00:00 AM EDT [facility] Vitamin B 12 0.1 MG Oral Tablet 07/26/2017 12:00:00 AM EST [facility] Warfarin Sodium 5 MG Oral Tablet 07/26/2017 12:00:00 AM [facility]
--- OUTSIDE RECORDS SUMMARY | 2020-06-29 09:33 | CCD ---
Author Author [facility] Organization [facility] Address Unknown Phone Unavailable Care Team Providers Care Customer Account Specialist Name Role Phone Caterina Granados Unavailable PROBLEMS Type Condition ICD9-CM Code [id number] Code Onset Dates Condition S tatus SNOMED Code Notes Problem Thyroid nodule E04.1 Active 827451639 Problem Hyperthyroidism E05.90 Active 80094310 Problem B12 deficiency E53.8 Active 782864367 Problem Anticoagulation monitoring, INR range 2-3 Z79.01 Active 442423353 Problem History of bladder cancer Z85.51 Active 877787 002 Problem Persistent atrial fibrillation I48.19 Active 4 40396707 Problem Essential hypertension I10 Active 55997410 Problem Hypomagnesemia E83.42 Active 032628750 Problem Chronic systolic CHF (congestive heart failure), NYHA class 3 I50.22 Active 511759603 Problem CKD (chronic kidney disease), stage 3 (moderate) N 18.3 Active 685032839 ALLERGIES No Known Allergies ENCOUNTERS from 1940 to 2020-04-01 Encounter Location Date Provider Diagnosis [address] [place] [address] Mar, Mar loyda Granados Anticoagulation monitoring, INR range 2-3 Z79.01 ; Encounter for immunization Z23 and Persistent atrial fibrillation I48.19 IMMUNIZATIONS Vaccine [...] Education Language: Question Answer Notes Languages spoken: Cymro Muslim: Question Answer Notes Muslim 13 Christianity Sexual Hx: Question Answer Notes Had sex [...] FOR REFERRAL No Information VITAL SIGNS Weight 129.6 lbs Mar, Height 59 in Mar, BMI 26.17 kg/m2 Mar, Heart Rate 73 /min Mar, Respiratory Rate 18 /min Mar, Temperature 97.5 degrees Fahrenheit Mar, Oximetry 94 Mar, Blood pressure systolic 116 mm Hg Mar, Blood pressure diastolic 72 mm Hg Mar, MEDICATIONS Medication SIG (Take, Route, Frequency, Duration) Start Date En d Date Status Digoxin 125 MCG 1 tablet Orally Once a day for 30 day(s) Active Furosemide 20 MG 1 tablet Orally Once a day for 90 days Active Vitamin B-12 500 MCG 2 tablets Orally Once a day May, Active Warfarin Sodium 2.5 MG 2.5 mg 3 times a week, 5mg 4 times a week Orally Once a day for 146 Active Ferrous Sulfate 325 (65 Fe) MG 1 tablet Orally Once a day Active Calcium + D 600-200 MG-UNIT Orally Active Metoprolol Tartrate 50 MG TAKE ONE TABLET BY MOUTH TWICE A DAY Oral for 30 Active Methimazole 10 MG 1/2 tab Orally 5 days a week, M-F Active PROCEDURES Procedure Date Ordered Result Body Site Immunization: Flublok Quadrivalent (18 years & older) 0.5mL IM (Influenza) 2020-03-23 N/A RESULTS Component Value Reference Range PT-INR Fingerstick Reviewed date:03/23/2020 11:38:16 Interpretation: Performing Lab:[facility], [facility], [place] [address] INR 1.6 Verified Patient's Name and ML Current Dose 1 Hold X3days Current Dose 2 2.5MWF,5mg ROW Tab Strength 2.5mg Indication for Anticoagulation A-fib Recent Bleeding No Internal QC Acceptable (Y/N) Yes Therapeutic Range 2-3 Education Given (Date / Initials) New Dose 1 5 mg TuWth, then usual New Dose 2 Weekly Total Next PT-INR 1 w - - REASON FOR VISIT PT [...] appendectomy Hospitalization History surgery related Hospitalization History [facility] A-fib Hospitalization History A-fib and Pneumonia @ [facility] 08/05 Goals Section No Information Health Concerns No Information MEDICAL EQUIPMENT No Information MENTAL STATUS No Information FUNCTIONAL STATUS No Information ASSESSMENTS Encounter Date Diagnosis Notes Mar, Persistent atrial fibrillation (ICD-10 - I48.19) Mar, Encounter for immunization (ICD-10 - Z23 ) Mar, Anticoagulation monitoring, INR range 2- 3 (ICD-10 - Z79.01) PLAN OF TREATMENT Next Appt Details as - 1 w Reason: Provider Name:Caterina Granados, 2020-04-13 11:15:00 AM, [address], [place], [address], Insurance Providers Payer Name Payer Address Payer Phone Insured Name Patient Relati onship to Insured Coverage Start Date Coverage End Date [facility] [address] [address] [facility] [id number] RADHAMES AVINA self
--- OUTSIDE RECORDS SUMMARY | 2020-06-29 09:33 | CCD ---
Author Author [facility] Organization [facility] Address Unknown Phone Unavailable Care Team Providers Care Evaporator Repairer Name Role Phone Caterina Granados Unavailable PROBLEMS Type Condition ICD9-CM Code BKY00-ZI Code Onset Dates Condition S tatus SNOMED Code Notes Problem Thyroid nodule E04.1 Active 420421234 Problem Hyperthyroidism E05.90 Active 37273153 Problem B12 deficiency E53.8 Active 383216908 Problem Anticoagulation monitoring, INR range 2-3 Z79.01 Active 922454092 Problem History of bladder cancer Z85.51 Active 794096 002 Problem Persistent atrial fibrillation I48.19 Active 4 00421254 Problem Essential hypertension I10 Active 79479050 Problem Hypomagnesemia E83.42 Active 851690555 Problem Chronic systolic CHF (congestive heart failure), NYHA class 3 I50.22 Active 693962224 Problem CKD (chronic kidney disease), stage 3 (moderate) N 18.3 Active 217998489 ALLERGIES No Known Allergies ENCOUNTERS from 1940 to 2020-04-10 Encounter Location Date Provider Diagnosis [address] [place] [address] 13 Mar, 2020 Mar loyda Awancea Anticoagulation monitoring, INR range 2-3 Z79.01 and [...] Education Language: Question Answer Notes Languages spoken: Vietnamese Alevism: Question Answer Notes Alevism 13 Baptism Sexual Hx: Question Answer Notes Had sex [...] FOR REFERRAL No Information VITAL SIGNS Weight 126.2 lbs Mar, Height 59 in Mar, BMI 25.49 kg/m2 Mar, Heart Rate 61 /min Mar, Respiratory Rate 18 /min Mar, Temperature 97.0 degrees Fahrenheit Mar, Oximetry 95 Mar, Blood pressure systolic 118 mm Hg Mar, Blood pressure diastolic 74 mm Hg Mar, MEDICATIONS Medication SIG (Take, [...] Component Value Reference Range PT-INR Fingerstick Reviewed date:03/30/2020 11:38:12 Interpretation: Performing Lab:[facility], [place] [address] INR 3.0 Verified Patient's Name and ML Current Dose 1 5mg T,W,TH Current Dose 2 Then 2.5mg MWF, 5mg ROW Tab Strength 2.5mg Indication for Anticoagulation A-fib Recent Bleeding No Internal QC Acceptable (Y/N) Yes Therapeutic Range 2-3 Education Given (Date / Initials) New Dose 1 2.5 mg MWF, 5 mg ROW New Dose 2 Weekly Total Next PT-INR 2 w - - REASON FOR VISIT pt inr MEDICAL (GENERAL) HISTORY Type Description Date Medical [...] appendectomy Hospitalization History surgery related Hospitalization History [facility] A-fib Hospitalization History A-fib and Pneumonia @ [facility] 08/05 Goals Section No Information Health Concerns No Information MEDICAL EQUIPMENT No Information MENTAL STATUS No Information FUNCTIONAL STATUS No Information ASSESSMENTS Encounter Date Diagnosis Notes Mar, Persistent atrial fibrillation (ICD-10 - I48.19) Mar, Anticoagulation monitoring, INR range 2- 3 (ICD-10 - Z79.01) PLAN OF TREATMENT Next Appt Details 2 Weeks Reason:PT Provider Name:Caterina Granados 2020-04-13 11:15:00 AM, [address], [place], [address], Follow Up:2 WeeksPT Insurance Providers Payer Name Payer Address Payer Phone Insured Name Patient Relati onship to Insured Coverage Start Date Coverage End Date [facility] [employer] [facility] [address] [address] [facility] [id number] [phone] RADHAMES AVINA
[2020-06-29] MEDS ORDERED: fentaNYL 100 MCG/2 ML INJECTION (J3010) As Ordered ONE (10:05)
[2020-06-29] MEDS ORDERED: MIDAZOLAM INJ 2MG/2ML VIAL (J2250 PER 1MG) As Ordered ONE (10:05)
[2020-06-29] MEDS ORDERED: ONDANSETRON 4MG/2ML VIAL As Ordered ONE (10:06)
[2020-06-29] MEDS ORDERED: ePHEDrine SULFATE 25 MG/5 ML(5MG/ML) SYRINGE As Ordered ONE ×2 (10:06→11:53)
[2020-06-29] MEDS ORDERED: propofoL 200 MG/20 ML VIAL As Ordered ONE (10:07)
[2020-06-29] MEDS ORDERED: dexameTHASONE 4 MG/ML 1ML VIAL (J1100 PER 1MG) As Ordered ONE (10:07)
[2020-06-29] MEDS ORDERED: LIDOCAINE 2% 100MG/5ML SDV (FOR ANES.) As Ordered ONE (10:07)
[2020-06-29] MEDS ORDERED: SUGAMMADEX SODIUM 500 MG/5 ML VIAL (BRIDION) As Ordered ONE (10:07)
[2020-06-29] MEDS ORDERED: ROCURONIUM BROMIDE 50 MG/5 ML VIAL As Ordered ONE (10:07)
[2020-06-29 10:42] LABS: INR 1.13; PROTHROMBIN TIME 14.8 SECONDS (12.5-14.3)
[2020-06-29] MEDS ORDERED: BUPIVACAINE/EPIN 0.25% 30 ML VIAL As Ordered ONE (10:42)
[2020-06-29] MEDS ORDERED: ACETAMINOPHEN 1000MG 100ML IV BTL (OFIRMEV) (J0131 PER 10MG) As Ordered ONE (11:22)
[2020-06-29] MEDS ORDERED: VASOPRESSIN INJ 20 UNITS/ML VIAL As Ordered ONE ×2 (11:29→11:31)
[2020-06-29] MEDS ORDERED: PHENYLephrine 500MCG 5ML (100MCG/ML) SYRINGE As Ordered ONE (11:53)
[2020-06-29] MEDS ORDERED: NORCO, ANEXSIA 5/325MG TABLET (HYDROcodone/ACETAMINOPHEN) PO PRN (13:15)
[2020-06-29] MEDS ORDERED: fentaNYL 100 MCG/2 ML INJECTION (J3010) IV PRN (13:15)
[2020-06-29] MEDS ORDERED: ONDANSETRON 4MG/2ML VIAL IV PRN (13:15)
[2020-06-29] MEDS ORDERED: LR 1,000 ML IV SCH ×2 (13:15→13:45)
--- NOTE | 2020-06-29 13:21 | RO ---
OPERATIVE NOTE DATE OF OPERATION: 06/29/2020 PREOPERATIVE DIAGNOSIS: History of gallstone pancreatitis. POSTOPERATIVE DIAGNOSIS: History of gallstone pancreatitis. PROCEDURE: Laparoscopic cholecystectomy. SURGEON: Endy Machado MD ANESTHESIA: General endotracheal anesthesia. EBL: Minimal. FLUIDS: Crystalloid. BRIEF PROCEDURE SUMMARY: The patient was brought to the operating room and was given general anesthesia. After adequate anesthesia and preoperative antibiotics were given, the patient was prepped and draped in usual sterile fashion. Next, a left subcostal incision was made with a skin knife. Blunt dissection was carried down to fascia. Veress needle was placed into the abdominal cavity and insufflated to 15 mm of pressure. Dilating 5 mm trocar was placed and under direct visualization, given there are numerous intraabdominal adhesions along the midline as well as where she has a very large parastomal hernia, I placed a left lower quadrant 5 mm trocar and used the harmonic scalpel to take down a bunch of adhesions. The gallbladder itself was adherent to the colon and the omentum. I grasped the gallbladder and was able to retract it, and this was a very very redundant floppy gallbladder. Eventually I was able to mobilize this nicely using the harmonic scalpel as well as the Hook cautery, and then all the attachments to the gallbladder were taken down. I was able to create a very large window behind the neck of the gallbladder, however with such a floppy attachment to the gallbladder, it really was not much holding it onto the gallbladder itself. In any case, I followed this down distally and was able to see where the spiral valves of Heister/cystic duct was. After working on isolating this a little bit better, I was able to see the common bile duct medial to this, at least a couple centimeters away, and at this time, the clips were placed on the cystic duct despite it being a little bit on the wide side. This was able to be clipped completely across with the 5 mm clip martial arts instructor times two and distally and then the gallbladder was removed from the gallbladder bed using the harmonic scalpel. Once this was removed in its entirety, it was placed in an EndoCatch bag and brought out through the periumbilical incision, which was converted from a 5 mm trocar to a 10 mm trocar right where there were numerous midline hernias present. The right upper quadrant was copiously irrigated till clear. All trocars were removed under direct visualization. 0 Vicryl was used to close the fascia at the umbilicus and all incisions were closed with 4-0 Vicryl. Steri-Strips and a dry sterile dressing was applied. The patient was awakened and brought to the recovery room awake, alert and hemodynamically stable. Sponge and needle counts correct x2.
[2020-06-29] MEDS ORDERED: traMADol 50 MG TAB PO PRN (13:45)
[2020-06-29 14:30] VITALS: BP 117/69
== END 2020-06-29 14:54 | disposition home or self-care (01) ==
LOC: M SDC 09:25
PROVIDERS: ATTEND Surgery
DX: K80.10 Calculus of gallbladder with chronic cholecystitis without obstruction (principal); I48.91 Unspecified atrial fibrillation; I10 Essential (primary) hypertension; Z79.01 Long term (current) use of anticoagulants; E03.9 Hypothyroidism, unspecified; J44.9 Chronic obstructive pulmonary disease, unspecified; Z79.899 Other long term (current) drug therapy; Z85.51 Personal history of malignant neoplasm of bladder
CPT/HCPCS: 36415; 47562; 85610; 88304; J0131; J0690; J1100; J2250; J2370; J2405; J3010

== ENCOUNTER → 2020-08-12 | Outpatient (REF) | payer MEDICARE ==
[~2020-08-12] MED LIST changes: -LIDOCAINE 1% MDV 20ML VIAL SQ PRN; -LR 1,000 ML IV ONE; -ceFAZolin SOD 2 GM in IV 1 EA IV ONE
[2020-08-12 19:14] LABS: FREE T4 1.38 NG/DL (0.76-1.46); THYROID STIMULATING HORMONE 0.452 uIU/ML (0.358-3.740)
== END ==
LOC: M LABDRWAD 16:54
PROVIDERS: ATTEND Nurse Practitioner Family
DX: E05.20 Thyrotoxicosis with toxic multinodular goiter without thyrotoxic crisis or storm (principal)

== ENCOUNTER → 2020-12-22 | Outpatient (REF) | payer MEDICARE | LOC: M LABDRWAD 12:27 | PROVIDERS: ATTEND Internal Medicine Endocrinology, Diabetes & Metabolism | DX: E05.20 Thyrotoxicosis with toxic multinodular goiter without thyrotoxic crisis or storm (principal) ==

== ENCOUNTER → 2021-01-31 | Outpatient (REF) | payer MEDICARE ==
[~2021-01-31] MED LIST changes: -LISI2.5T2 PO; +LISI2.5T9 PO
[2021-01-31 17:56] LABS: PROTHROMBIN TIME 51.5 SECONDS (12.7-14.5)
[2021-01-31 19:36] LABS: INR 5.72
== END ==
LOC: M SFHCADAM 17:02
PROVIDERS: ATTEND Physician Assistant Medical
DX: I48.19 Other persistent atrial fibrillation (principal); Z79.01 Long term (current) use of anticoagulants

== ENCOUNTER → 2021-02-03 | Outpatient (REF) | payer MEDICARE ==
[2021-02-03 11:56] LABS: INR 3.37; PROTHROMBIN TIME 34.4 SECONDS (12.7-14.5)
== END ==
LOC: M SFHCADAM 09:54
PROVIDERS: ATTEND Physician Assistant Medical
DX: I48.20 Chronic atrial fibrillation, unspecified (principal); Z79.01 Long term (current) use of anticoagulants

== ENCOUNTER → 2021-02-10 | Outpatient (REF) | payer MEDICARE ==
[2021-02-10 13:25] LABS: INR 3.41; PROTHROMBIN TIME 34.7 SECONDS (12.7-14.5)
== END ==
LOC: M SFHCADAM 09:35
PROVIDERS: ATTEND Physician Assistant Medical
DX: I48.20 Chronic atrial fibrillation, unspecified (principal); Z79.01 Long term (current) use of anticoagulants

== ENCOUNTER → 2021-02-17 | Outpatient (REF) | payer MEDICARE ==
[2021-02-17 15:11] LABS: INR 2.35; PROTHROMBIN TIME 26.1 SECONDS (12.7-14.5)
== END ==
LOC: M SFHCADAM 09:30
PROVIDERS: ATTEND Physician Assistant
DX: Z95.2 Presence of prosthetic heart valve (principal); Z79.01 Long term (current) use of anticoagulants

== ENCOUNTER → 2021-02-24 | Outpatient (REF) | payer MEDICARE ==
[2021-02-24 13:06] LABS: INR 2.94
== END ==
LOC: M SFHCADAM 09:54
PROVIDERS: ATTEND Physician Assistant Medical
DX: I48.20 Chronic atrial fibrillation, unspecified (principal)

== ENCOUNTER → 2021-03-10 | Outpatient (REF) | payer MEDICARE ==
[2021-03-10 12:18] LABS: INR 4.63; PROTHROMBIN TIME 43.8 SECONDS (12.7-14.5)
== END ==
LOC: M SFHCADAM 08:39
PROVIDERS: ATTEND Family Medicine
DX: I48.20 Chronic atrial fibrillation, unspecified (principal)

== ENCOUNTER → 2021-04-13 | Outpatient (REF) | payer MEDICARE | LOC: M LABDRWAD 12:16 | PROVIDERS: ATTEND Internal Medicine Endocrinology, Diabetes & Metabolism | DX: E05.20 Thyrotoxicosis with toxic multinodular goiter without thyrotoxic crisis or storm (principal) ==

== ENCOUNTER → 2021-05-17 | Outpatient (REF) | payer MEDICARE ==
[2021-05-17 12:35] LABS: BASO # 0.1 10^3/uL (0.0-0.2); BASO % 0.7 % (0.0-1.0); EOS # 0.1 10^3/uL (0.0-0.5); EOS % 1.2 % (0.0-3.0); HEMATOCRIT 37.3 % (36.0-47.0); HEMOGLOBIN 11.7 g/dl (12.0-15.5); LYMPH # 2.4 10^3/uL (1.5-5.0); LYMPH % 36.4 % (24.0-44.0); MEAN CORPUSCULAR HEMOGLOBIN 31.2 pg (27.0-33.0); MEAN CORPUSCULAR HGB CONC 31.4 g/dl (32.0-36.5); MEAN CORPUSCULAR VOLUME 99.5 fl (80.0-96.0); MONO # 0.8 10^3/uL (0.0-0.8); MONO % 12.1 % (2.0-8.0); NEUTROPHILS # 3.3 10^3/uL (1.5-8.5); NEUTROPHILS % 49.5 % (36.0-66.0); PLATELET COUNT, AUTOMATED 166 10^3/uL (150-450); RED BLOOD COUNT 3.75 10^6/uL (4.00-5.40); WHITE BLOOD COUNT 6.7 10^3/uL (4.0-10.0)
[2021-05-17 13:24] LABS: ALBUMIN 3.3 GM/DL (3.2-5.2); BILIRUBIN,TOTAL 0.6 MG/DL (0.2-1.0); CHOLESTEROL RISK RATIO 1.964 (<5); CREATININE FOR GFR 1.13 MG/DL (0.55-1.30); GLOMERULAR FILTRATION RATE 49.3 (>32); POTASSIUM SERUM 4.4 MEQ/L (3.5-5.1); TOTAL PROTEIN 7.5 GM/DL (6.4-8.2)
[2021-05-17 13:36] LABS: HEMOGLOBIN A1c 5.2 %
== END ==
LOC: M SFHCADAM 08:32
PROVIDERS: ATTEND Physician Assistant Medical
DX: E05.90 Thyrotoxicosis, unspecified without thyrotoxic crisis or storm (principal); E04.1 Nontoxic single thyroid nodule; I50.22 Chronic systolic (congestive) heart failure; I13.0 Hypertensive heart and chronic kidney disease with heart failure and stage 1 through stage 4 chronic kidney disease, or unspecified chronic kidney disease; Z85.51 Personal history of malignant neoplasm of bladder; E53.8 Deficiency of other specified B group vitamins; E83.42 Hypomagnesemia; I48.19 Other persistent atrial fibrillation; Z79.01 Long term (current) use of anticoagulants; N18.31 Chronic kidney disease, stage 3a

== ENCOUNTER → 2021-08-16 | Outpatient (REF) | payer MEDICARE | LOC: M LAB REF 16:36 | PROVIDERS: ATTEND Nurse Practitioner Family | DX: N18.32 Chronic kidney disease, stage 3b (principal) ==

== ENCOUNTER → 2021-09-16 | Outpatient (CLI) | payer MEDICARE ==
[2021-09-16 14:16] LABS: FREE T4 1.41 NG/DL (0.76-1.46); THYROID STIMULATING HORMONE 0.631 uIU/ML (0.358-3.740)
== END ==
LOC: M ADAMS 11:28
PROVIDERS: ATTEND Nurse Practitioner Family
DX: E05.20 Thyrotoxicosis with toxic multinodular goiter without thyrotoxic crisis or storm (principal)

== ENCOUNTER → 2021-11-10 | Outpatient (REF) | payer MEDICARE ==
[2021-11-10 13:13] LABS: BASO # 0.1 10^3/uL (0.0-0.2); BASO % 1.9 % (0.0-1.0); EOS # 0.2 10^3/uL (0.0-0.5); EOS % 4.2 % (0.0-3.0); HEMATOCRIT 38.2 % (36.0-47.0); HEMOGLOBIN 11.8 g/dl (12.0-15.5); LYMPH # 1.7 10^3/uL (1.5-5.0); LYMPH % 33.1 % (24.0-44.0); MEAN CORPUSCULAR HEMOGLOBIN 30.8 pg (27.0-33.0); MEAN CORPUSCULAR HGB CONC 30.9 g/dl (32.0-36.5); MEAN CORPUSCULAR VOLUME 99.7 fl (80.0-96.0); MONO # 0.6 10^3/uL (0.0-0.8); MONO % 11.7 % (2.0-8.0); NEUTROPHILS # 2.5 10^3/uL (1.5-8.5); NEUTROPHILS % 48.9 % (36.0-66.0); PLATELET COUNT, AUTOMATED 368 10^3/uL (150-450); RED BLOOD COUNT 3.83 10^6/uL (4.00-5.40); WHITE BLOOD COUNT 5.2 10^3/uL (4.0-10.0)
[2021-11-10 13:51] LABS: ALBUMIN 3.5 GM/DL (3.2-5.2); BILIRUBIN,TOTAL 0.5 MG/DL (0.2-1.0); CALCIUM LEVEL 9.1 MG/DL (8.8-10.2); CHOLESTEROL RISK RATIO 1.968 (<5); CREATININE FOR GFR 1.15 MG/DL (0.55-1.30); GLOMERULAR FILTRATION RATE 48.2 (>32); MAGNESIUM LEVEL 1.9 MG/DL (1.8-2.4); POTASSIUM SERUM 4.9 MEQ/L (3.5-5.1); THYROID STIMULATING HORMONE 0.571 uIU/ML (0.358-3.740); TOTAL PROTEIN 7.7 GM/DL (6.4-8.2)
[2021-11-10 14:00] LABS: TOTAL 25(OH) VITAMIN D 16.3 NG/ML (30.0-100.0)
== END ==
LOC: M SFHCADAM 08:07
PROVIDERS: ATTEND Physician Assistant Medical
DX: E05.90 Thyrotoxicosis, unspecified without thyrotoxic crisis or storm (principal); E04.1 Nontoxic single thyroid nodule; I10 Essential (primary) hypertension; E53.8 Deficiency of other specified B group vitamins

== ENCOUNTER → 2022-01-10 | Outpatient (CLI) | payer MEDICARE ==
[2022-01-10 14:03] LABS: CALCIUM LEVEL 8.4 MG/DL (8.8-10.2); CREATININE FOR GFR 1.16 MG/DL (0.55-1.30); GLOMERULAR FILTRATION RATE 47.7 (>32); POTASSIUM SERUM 4.3 MEQ/L (3.5-5.1)
[2022-01-10 14:04] LABS: ALBUMIN 3.8 GM/DL (3.2-5.2); BILIRUBIN,TOTAL 0.5 MG/DL (0.2-1.0); FREE T4 1.24 NG/DL (0.76-1.46); THYROID STIMULATING HORMONE 0.815 uIU/ML (0.358-3.740); TOTAL PROTEIN 7.8 GM/DL (6.4-8.2)
== END ==
LOC: M ADAMS 10:10
PROVIDERS: ATTEND Nurse Practitioner Family
DX: E05.20 Thyrotoxicosis with toxic multinodular goiter without thyrotoxic crisis or storm (principal)

== ENCOUNTER → 2022-03-15 | Outpatient (REF) | payer MEDICARE | LOC: M LABDRWAD 12:50 | PROVIDERS: ATTEND Physician Assistant | DX: I48.19 Other persistent atrial fibrillation (principal) ==

== ENCOUNTER → 2022-08-22 | Outpatient (REF) | payer MEDICARE | LOC: M LABDRAWP 16:00 | PROVIDERS: ATTEND Internal Medicine Endocrinology, Diabetes & Metabolism | DX: E05.20 Thyrotoxicosis with toxic multinodular goiter without thyrotoxic crisis or storm (principal) ==

== ENCOUNTER → 2022-10-30 | Outpatient (REF) | payer MEDICARE ==
[2022-10-30 13:33] LABS: BASO % 0.9 % (0.0-1.0); EOS # 0.2 10^3/uL (0.0-0.5); EOS % 3.7 % (0.0-3.0); HEMATOCRIT 37.7 % (36.0-47.0); HEMOGLOBIN 11.9 g/dl (12.0-15.5); LYMPH # 1.8 10^3/uL (1.5-5.0); LYMPH % 38.8 % (24.0-44.0); MEAN CORPUSCULAR HEMOGLOBIN 32.9 pg (27.0-33.0); MEAN CORPUSCULAR HGB CONC 31.6 g/dl (32.0-36.5); MEAN CORPUSCULAR VOLUME 104.1 fl (80.0-96.0); MONO # 0.5 10^3/uL (0.0-0.8); MONO % 10.8 % (2.0-8.0); NEUTROPHILS # 2.1 10^3/uL (1.5-8.5); NEUTROPHILS % 45.4 % (36.0-66.0); PLATELET COUNT, AUTOMATED 192 10^3/uL (150-450); RED BLOOD COUNT 3.62 10^6/uL (4.00-5.40); WHITE BLOOD COUNT 4.5 10^3/uL (4.0-10.0)
[2022-10-30 14:05] LABS: ALBUMIN 3.5 G/DL (3.2-5.2); BILIRUBIN,TOTAL 0.4 MG/DL (0.3-1.2); CALCIUM LEVEL 8.3 MG/DL (8.3-10.6); CHOLESTEROL RISK RATIO 2.19 (<5); CREATININE FOR GFR 1.06 MG/DL (0.55-1.30); GLOMERULAR FILTRATION RATE 52.8 (>32); HDL CHOLESTEROL 55.1 MG/DL (>40); LDL CHOLESTEROL 48.9 MG/DL (<100); MAGNESIUM LEVEL 1.6 MG/DL (1.8-2.4); NON-HDL-C 65.9 MG/DL; THYROID STIMULATING HORMONE 0.496 uIU/ML (0.55-4.78)
[2022-10-30 14:59] LABS: CREATININE, URINE 35.9 MG/DL; MAU/CREAT RATIO 264.6 MCG/MG (0.0-30.0)
== END ==
LOC: M SFHCADAM 07:58
PROVIDERS: ATTEND Physician Assistant Medical
DX: I48.21 Permanent atrial fibrillation (principal); I50.22 Chronic systolic (congestive) heart failure; N18.31 Chronic kidney disease, stage 3a; E83.42 Hypomagnesemia; Z95.2 Presence of prosthetic heart valve

== ENCOUNTER 2023-01-10 11:18 | Emergency (ER) | payer MEDICARE ==
[~2023-01-10] VITALS: Ht 152.4 cm; Wt 44.2 kg
[2023-01-10] MEDS ORDERED: LIDOCAINE 5% (LIDODERM) PATCH TD ONE (16:30)
[2023-01-10] MEDS ORDERED: ACETAMINOPHEN 1000MG 100ML IV BAG IV ONE (16:30)
[2023-01-10 17:19] LABS: BASO # 0.1 10^3/uL (0.0-0.2); BASO % 0.8 % (0.0-1.0); EOS % 0.3 % (0.0-3.0); HEMATOCRIT 41.1 % (36.0-47.0); HEMOGLOBIN 13.2 g/dl (12.0-15.5); LYMPH # 1.4 10^3/uL (1.5-5.0); LYMPH % 24.3 % (24.0-44.0); MEAN CORPUSCULAR HEMOGLOBIN 32.8 pg (27.0-33.0); MEAN CORPUSCULAR HGB CONC 32.1 g/dl (32.0-36.5); MEAN CORPUSCULAR VOLUME 102.2 fl (80.0-96.0); MONO # 0.4 10^3/uL (0.0-0.8); MONO % 6.9 % (2.0-8.0); NEUTROPHILS % 67.5 % (36.0-66.0); PLATELET COUNT, AUTOMATED 229 10^3/uL (150-450); RED BLOOD COUNT 4.02 10^6/uL (4.00-5.40); WHITE BLOOD COUNT 5.9 10^3/uL (4.0-10.0)
[2023-01-10 17:33] LABS: ERYTHROCYTE SEDIMENTATION RATE 34 mm/hr (0-30)
[2023-01-10] MEDS ORDERED: ISOVUE-370 76% 100ML VIAL As Ordered ONE (17:41)
[2023-01-10] MEDS ORDERED: MENT118S2 TP (19:39)
[2023-01-10] MEDS ORDERED: ASPE4PAD TOP (19:39)
[2023-01-10 19:43] VITALS: BP 136/89; TEMP 97.8; O2SAT 100
[2023-01-12] MEDS ORDERED: MACR100C43 PO (02:20)
== END 2023-01-10 19:58 | disposition home or self-care (01) ==
LOC: M ED 11:18
DX: M54.50 Low back pain, unspecified (principal); I11.9 Hypertensive heart disease without heart failure; I48.91 Unspecified atrial fibrillation; I50.20 Unspecified systolic (congestive) heart failure; J44.9 Chronic obstructive pulmonary disease, unspecified; E03.9 Hypothyroidism, unspecified; Z79.01 Long term (current) use of anticoagulants; Z79.899 Other long term (current) drug therapy; Z79.82 Long term (current) use of aspirin
CPT/HCPCS: 72131; 74177; 80047; 81001; 85025; 85652; 86140; 87088; 87186; 96374; 99284; J0131; Q9967

== ENCOUNTER → 2023-03-08 | Outpatient (CLI) | payer MEDICARE ==
[~2023-03-08] MED LIST changes: +ASPE4PAD TOP; +MACR100C43 PO; +MENT118S2 TP
[2023-03-08 19:23] LABS: THYROID STIMULATING HORMONE 0.11 uIU/ML (0.55-4.78)
[2023-03-08 19:24] LABS: FREE T4 1.54 NG/DL (0.89-1.76)
== END ==
LOC: M LABDRWAD 13:23
PROVIDERS: ATTEND Nurse Practitioner Family
DX: E05.20 Thyrotoxicosis with toxic multinodular goiter without thyrotoxic crisis or storm (principal)

== ENCOUNTER 2023-04-16 13:36 | Inpatient (IN) | payer MEDICARE ==
[~2023-04-16] VITALS: Ht 152.4 cm; Wt 43.4 kg
[2023-04-16] MEDS ORDERED: ELIQ2.5T PO (13:55)
[2023-04-16 14:29] LABS: BASO # 0.1 10^3/uL (0.0-0.2); BASO % 1.1 % (0.0-1.0); EOS % 0.4 % (0.0-3.0); HEMATOCRIT 40.2 % (36.0-47.0); HEMOGLOBIN 12.6 g/dl (12.0-15.5); LYMPH # 0.9 10^3/uL (1.5-5.0); MEAN CORPUSCULAR HEMOGLOBIN 32.6 pg (27.0-33.0); MEAN CORPUSCULAR HGB CONC 31.3 g/dl (32.0-36.5); MEAN CORPUSCULAR VOLUME 103.9 fl (80.0-96.0); MONO # 0.5 10^3/uL (0.0-0.8); MONO % 9.8 % (2.0-8.0); NEUTROPHILS # 3.2 10^3/uL (1.5-8.5); NEUTROPHILS % 69.5 % (36.0-66.0); PLATELET COUNT, AUTOMATED 165 10^3/uL (150-450); RED BLOOD COUNT 3.87 10^6/uL (4.00-5.40); WHITE BLOOD COUNT 4.6 10^3/uL (4.0-10.0)
[2023-04-16 14:57] LABS: RSV AMPLIFICATION NEGATIVE (NEGATIVE)
[2023-04-16 14:58] LABS: LIPASE 37 U/L (12-53)
[2023-04-16 14:59] LABS: CK-MB VALUE MASS 1.6 NG/ML (<3.6)
[2023-04-16 15:01] LABS: ALBUMIN 3.7 G/DL (3.2-5.2); ALKALINE PHOSPHATASE 95 U/L (46-116); ALT/SGPT 28 U/L (7.0-40); AST/SGOT 37 U/L (<34); BILIRUBIN,DIRECT 0.3 MG/DL (<0.4); BILIRUBIN,TOTAL 0.7 MG/DL (0.3-1.2); TOTAL PROTEIN 7.6 G/DL (5.7-8.2)
[2023-04-16 15:02] LABS: CPK CREATINE PHOSPHOKINASE 77 U/L (34-145); MB/CK RELATIVE INDEX 2.07 (< OR =4)
[2023-04-16] MEDS ORDERED: FUROSEMIDE 40MG/4ML VIAL IV ONE (15:15)
[2023-04-16 15:40] LABS: BLOOD UREA NITROGEN 28 MG/DL (9-23); CREATININE FOR GFR 0.92 MG/DL (0.55-1.30); GLOMERULAR FILTRATION RATE > 60.0 (>32); GLUCOSE, FASTING 123 MG/DL (74-106); POTASSIUM SERUM 5.2 MMOL/L (3.5-5.1); SODIUM LEVEL 143 MMOL/L (136-145)
[2023-04-16 15:41] LABS: CALCIUM LEVEL 8.5 MG/DL (8.3-10.6); CARBON DIOXIDE LEVEL 23 MMOL/L (20-31); CHLORIDE LEVEL 110 MMOL/L (98-107)
[2023-04-16] MEDS ORDERED: MED REC IN PROGRESS XX SCH (16:20)
[2023-04-16] MEDS ORDERED: ACETAMINOPHEN TAB 650MG DOSE (2X325MG) PO PRN (16:50)
[2023-04-16 18:11] LABS: THYROID STIMULATING HORMONE 0.426 uIU/ML (0.55-4.78)
[2023-04-16 18:12] LABS: FREE T4 1.25 NG/DL (0.89-1.76)
[2023-04-16 20:25] VITALS: BP 124/76; TEMP 97.7; O2SAT 93
[2023-04-16] MEDS ORDERED: NOXI1TAB PO (21:44)
[2023-04-16] MEDS ORDERED: HOME MED LIST COMPLETE! XX SCH (21:45)
[2023-04-16] MEDS ORDERED: DIGO0.123 PO (21:56)
[2023-04-16] MEDS ORDERED: METH10TA PO (21:59)
[2023-04-16 23:20] VITALS: BP 111/75; TEMP 97.8; O2SAT 96
[2023-04-17] VITALS (16 sets, daily range): BP systolic 92–138; BP diastolic 55–83; TEMP 97–98.1; O2SAT 93–100
[2023-04-17 06:01] LABS: HEMATOCRIT 33.5 % (36.0-47.0); HEMOGLOBIN 10.9 g/dl (12.0-15.5); MEAN CORPUSCULAR HEMOGLOBIN 32.6 pg (27.0-33.0); MEAN CORPUSCULAR HGB CONC 32.5 g/dl (32.0-36.5); MEAN CORPUSCULAR VOLUME 100.3 fl (80.0-96.0); PLATELET COUNT, AUTOMATED 141 10^3/uL (150-450); RED BLOOD COUNT 3.34 10^6/uL (4.00-5.40)
[2023-04-17 06:22] LABS: CALCIUM LEVEL 8.1 MG/DL (8.3-10.6); CREATININE FOR GFR 0.98 MG/DL (0.55-1.30); GLOMERULAR FILTRATION RATE 57.8 (>32); POTASSIUM SERUM 4.2 MMOL/L (3.5-5.1)
[2023-04-17 07:19] LABS: MAGNESIUM LEVEL 1.5 MG/DL (1.8-2.4)
[2023-04-17] MEDS ORDERED: FUROSEMIDE 20MG/2ML VIAL IV SCH (09:00)
[2023-04-17] MEDS: CYANOCOBALAMIN 500 MCG TAB PO SCH (09:13)
[2023-04-17] MEDS: APIXABAN 2.5 MG TAB (ELIQUIS) PO SCH ×2 (09:13→20:05)
[2023-04-17] MEDS: MAG SULF 1GM/100ML (MAG RUN) 1 GM in IV 1 EA IV SCH ×3 (09:13→11:29)
[2023-04-17] MEDS: ASPIRIN 81MG CHEW TABLET PO SCH (09:13)
[2023-04-17] MEDS: DIGOXIN 0.125 MG TAB PO SCH (09:14)
[2023-04-17] MEDS ORDERED: METOPROLOL TART 25 MG TABLET PO SCH (12:00)
[2023-04-17] MEDS ORDERED: FLUZONE HIGH DOSE(65YR UP)QUAD/PF 240MCG/0.7ML SYRINGE IM.IMMUN ONE (14:00)
[2023-04-17] MEDS ORDERED: PREVNAR-20 VACCINE 0.5ML SYRINGE IM.IMMUN ONE (16:00)
[2023-04-18] VITALS (15 sets, daily range): BP systolic 92–111; BP diastolic 55–78; TEMP 96.5–97.3; O2SAT 92–98
[2023-04-18 05:02] LABS: BASO # 0.1 10^3/uL (0.0-0.2); EOS # 0.1 10^3/uL (0.0-0.5); EOS % 1.6 % (0.0-3.0); HEMATOCRIT 32.2 % (36.0-47.0); HEMOGLOBIN 10.1 g/dl (12.0-15.5); LYMPH # 0.8 10^3/uL (1.5-5.0); LYMPH % 15.7 % (24.0-44.0); MEAN CORPUSCULAR HGB CONC 31.4 g/dl (32.0-36.5); MEAN CORPUSCULAR VOLUME 101.9 fl (80.0-96.0); MONO # 0.5 10^3/uL (0.0-0.8); NEUTROPHILS # 3.6 10^3/uL (1.5-8.5); NEUTROPHILS % 71.3 % (36.0-66.0); PLATELET COUNT, AUTOMATED 141 10^3/uL (150-450); RED BLOOD COUNT 3.16 10^6/uL (4.00-5.40)
[2023-04-18 05:24] LABS: CALCIUM LEVEL 7.7 MG/DL (8.3-10.6); CREATININE FOR GFR 1.14 MG/DL (0.55-1.30); GLOMERULAR FILTRATION RATE 48.6 (>32); MAGNESIUM LEVEL 2.1 MG/DL (1.8-2.4); POTASSIUM SERUM 4.2 MMOL/L (3.5-5.1)
[2023-04-18] MEDS ORDERED: FURO20TA2 PO (08:04)
[2023-04-18] MEDS: ASPIRIN 81MG CHEW TABLET PO SCH (08:56)
[2023-04-18] MEDS: DIGOXIN 0.125 MG TAB PO SCH (08:56)
[2023-04-18] MEDS: CYANOCOBALAMIN 500 MCG TAB PO SCH (08:56)
[2023-04-18] MEDS: APIXABAN 2.5 MG TAB (ELIQUIS) PO SCH (08:57)
[2023-04-18] MEDS ORDERED: FUROSEMIDE 20MG/2ML VIAL IV SCH (09:00)
== END 2023-04-18 12:35 | disposition home health service (06) | DRG 291 ==
LOC: M ED 13:36 → M ED INP 16:12 → ENRESERV 16:29 → M PCU 20:23
PROVIDERS: ADMIT Internal Medicine; ATTEND Internal Medicine
PROC: B246ZZZ Ultrasonography of Right and Left Heart (ICD-10-PCS; principal; 2023-04-17)
DX: I13.0 Hypertensive heart and chronic kidney disease with heart failure and stage 1 through stage 4 chronic kidney disease, or unspecified chronic kidney disease (principal); I50.33 Acute on chronic diastolic (congestive) heart failure; I48.91 Unspecified atrial fibrillation; Z95.3 Presence of xenogenic heart valve; E05.90 Thyrotoxicosis, unspecified without thyrotoxic crisis or storm; N18.32 Chronic kidney disease, stage 3b; Z85.51 Personal history of malignant neoplasm of bladder; Z98.41 Cataract extraction status, right eye; Z98.42 Cataract extraction status, left eye; Z90.49 Acquired absence of other specified parts of digestive tract; E87.5 Hyperkalemia; Z93.6 Other artificial openings of urinary tract status; Z79.82 Long term (current) use of aspirin; Z79.899 Other long term (current) drug therapy; Z79.01 Long term (current) use of anticoagulants

== ENCOUNTER → 2023-04-25 | Outpatient (REF) | payer MEDICARE ==
[~2023-04-25] MED LIST changes: +ELIQ2.5T PO; +NOXI1TAB PO
[2023-04-25 14:31] LABS: EOS # 0.1 10^3/uL (0.0-0.5); EOS % 1.5 % (0.0-3.0); LYMPH # 1.4 10^3/uL (1.5-5.0); LYMPH % 35.4 % (24.0-44.0); MEAN CORPUSCULAR HEMOGLOBIN 32.2 pg (27.0-33.0); MEAN CORPUSCULAR HGB CONC 30.8 g/dl (32.0-36.5); MEAN CORPUSCULAR VOLUME 104.6 fl (80.0-96.0); MONO # 0.5 10^3/uL (0.0-0.8); MONO % 12.2 % (2.0-8.0); NEUTROPHILS % 49.6 % (36.0-66.0); PLATELET COUNT, AUTOMATED 171 10^3/uL (150-450); RED BLOOD COUNT 3.73 10^6/uL (4.00-5.40); WHITE BLOOD COUNT 3.9 10^3/uL (4.0-10.0)
[2023-04-25 14:54] LABS: PERCENT SATURATION 12.8 % (13.2-45.0)
[2023-04-25 15:00] LABS: ALBUMIN 3.7 G/DL (3.2-5.2); BILIRUBIN,TOTAL 0.6 MG/DL (0.3-1.2); CALCIUM LEVEL 8.8 MG/DL (8.3-10.6); CHOLESTEROL RISK RATIO 1.97 (<5); CREATININE FOR GFR 1.04 MG/DL (0.55-1.30); FERRITIN 45.6 NG/ML (7.3-270.7); FOLATE 11.5 NG/ML (>5.4); HDL CHOLESTEROL 76.8 MG/DL (>40); LDL CHOLESTEROL 64.4 MG/DL (<100); MAGNESIUM LEVEL 1.7 MG/DL (1.8-2.4); NON-HDL-C 75.2 MG/DL; POTASSIUM SERUM 4.9 MMOL/L (3.5-5.1); THYROID STIMULATING HORMONE 0.452 uIU/ML (0.55-4.78); TOTAL 25(OH) VITAMIN D 33.6 NG/ML (20.0-100.0); TOTAL PROTEIN 7.5 G/DL (5.7-8.2)
[2023-04-25 15:04] LABS: HEMOGLOBIN A1c 5.2 % (4.0-6.0)
== END ==
LOC: M SFHCADAM 11:20
PROVIDERS: ATTEND Physician Assistant Medical
DX: I48.21 Permanent atrial fibrillation (principal); D75.89 Other specified diseases of blood and blood-forming organs; I50.22 Chronic systolic (congestive) heart failure; N18.31 Chronic kidney disease, stage 3a; E83.42 Hypomagnesemia; Z95.2 Presence of prosthetic heart valve; Z79.899 Other long term (current) drug therapy

== ENCOUNTER → 2023-05-08 | Outpatient (CLI) | payer MEDICARE ==
[~2023-05-08] MED LIST changes: +AMLO2.5T3; +FURO40TA2 PO
== END ==
LOC: M ADAMS 12:13
PROVIDERS: ATTEND Physician Assistant Medical
DX: I51.7 Cardiomegaly (principal); J91.8 Pleural effusion in other conditions classified elsewhere; J81.1 Chronic pulmonary edema

== ENCOUNTER 2023-05-09 12:55 | Inpatient (IN) | payer MEDICARE ==
[~2023-05-09] VITALS: Ht 152.4 cm; Wt 44.6 kg
[~2023-05-09 12:55] MED LIST changes: -AMLO2.5T3; -FURO40TA2 PO
[2023-05-09] MEDS ORDERED: METO1TAB87 PO (13:14)
[2023-05-09] MEDS ORDERED: AMLO2.5T3 (13:14)
[2023-05-09 14:00] LABS: BASO # 0.1 10^3/uL (0.0-0.2); BASO % 1.1 % (0.0-1.0); EOS % 0.4 % (0.0-3.0); HEMATOCRIT 40.7 % (36.0-47.0); HEMOGLOBIN 12.8 g/dl (12.0-15.5); LYMPH % 22.3 % (24.0-44.0); MEAN CORPUSCULAR HEMOGLOBIN 32.2 pg (27.0-33.0); MEAN CORPUSCULAR HGB CONC 31.4 g/dl (32.0-36.5); MEAN CORPUSCULAR VOLUME 102.5 fl (80.0-96.0); MONO # 0.4 10^3/uL (0.0-0.8); MONO % 8.5 % (2.0-8.0); NEUTROPHILS % 67.5 % (36.0-66.0); PLATELET COUNT, AUTOMATED 196 10^3/uL (150-450); RED BLOOD COUNT 3.97 10^6/uL (4.00-5.40); WHITE BLOOD COUNT 4.5 10^3/uL (4.0-10.0)
[2023-05-09 14:25] LABS: ALKALINE PHOSPHATASE 108 U/L (46-116); ALT/SGPT 31 U/L (7.0-40); AST/SGOT 35 U/L (<34); BILIRUBIN,DIRECT 0.4 MG/DL (<0.4); BILIRUBIN,TOTAL 0.8 MG/DL (0.3-1.2); BLOOD UREA NITROGEN 48 MG/DL (9-23); CALCIUM LEVEL 8.7 MG/DL (8.3-10.6); CARBON DIOXIDE LEVEL 25 MMOL/L (20-31); CHLORIDE LEVEL 104 MMOL/L (98-107); CK-MB VALUE MASS 2.8 NG/ML (<3.6); CPK CREATINE PHOSPHOKINASE 83 U/L (34-145); CREATININE FOR GFR 1.36 MG/DL (0.55-1.30); DIGOXIN LEVEL < 0.1 NG/ML (0.8-2.0); GLOMERULAR FILTRATION RATE 39.6 (>32); GLUCOSE, FASTING 108 MG/DL (74-106); MB/CK RELATIVE INDEX 3.37 (< OR =4); POTASSIUM SERUM 4.4 MMOL/L (3.5-5.1); SODIUM LEVEL 136 MMOL/L (136-145); TOTAL PROTEIN 8.2 G/DL (5.7-8.2)
[2023-05-09 14:27] LABS: THYROID STIMULATING HORMONE 1.136 uIU/ML (0.55-4.78); THYROXINE (T4) 8.9 UG/DL (4.5-10.9)
[2023-05-09 14:49] LABS: PROCALCITONIN <0.04 ng/ml
[2023-05-09 15:26] LABS: CK-MB VALUE MASS 2.2 NG/ML (<3.6)
[2023-05-09 15:32] LABS: MB/CK RELATIVE INDEX 2.71 (< OR =4)
[2023-05-09] MEDS ORDERED: FUROSEMIDE 20MG/2ML VIAL IV ONE ×2 (15:35→21:00)
[2023-05-09] MEDS ORDERED: MED REC IN PROGRESS XX SCH (16:15)
[2023-05-09] MEDS ORDERED: MAALOX 30 ML SUSP *UDC PO PRN (16:30)
[2023-05-09] MEDS ORDERED: ACETAMINOPHEN TAB 650MG DOSE (2X325MG) PO PRN (16:30)
[2023-05-09] MEDS ORDERED: MOM 30ML SUSPENSION UDC PO PRN (16:30)
[2023-05-09] MEDS ORDERED: FURO40TA2 PO (17:23)
[2023-05-09] MEDS ORDERED: HOME MED LIST COMPLETE! XX SCH (17:25)
[2023-05-09] MEDS: DIGOXIN INJ 0.5 MG/2 ML AMP IV SCH ×2 (18:26→23:49)
[2023-05-09 20:47] VITALS: BP 110/74; TEMP 97.7; O2SAT 97
[2023-05-09] MEDS: APIXABAN 2.5 MG TAB (ELIQUIS) PO SCH (21:36)
[2023-05-10 03:35] VITALS: BP 93/60; TEMP 97.8; O2SAT 96
[2023-05-10] MEDS: DIGOXIN INJ 0.5 MG/2 ML AMP IV SCH (06:04)
[2023-05-10 07:53] VITALS: BP 129/78; TEMP 97.6; O2SAT 92
[2023-05-10 08:08] LABS: CALCIUM LEVEL 8.1 MG/DL (8.3-10.6); CREATININE FOR GFR 1.3 MG/DL (0.55-1.30); GLOMERULAR FILTRATION RATE 41.7 (>32); MAGNESIUM LEVEL 1.7 MG/DL (1.8-2.4); POTASSIUM SERUM 3.8 MMOL/L (3.5-5.1)
[2023-05-10] MEDS ORDERED: ASPIRIN 81MG CHEW TABLET PO SCH (09:00)
[2023-05-10] MEDS ORDERED: CYANOCOBALAMIN 500 MCG TAB PO SCH (09:00)
[2023-05-10] MEDS ORDERED: FUROSEMIDE 20MG/2ML VIAL IV SCH (09:00)
[2023-05-10] MEDS: APIXABAN 2.5 MG TAB (ELIQUIS) PO SCH (09:17)
[2023-05-10] MEDS ORDERED: MAG SULF 1GM/100ML (MAG RUN) 1 GM in IV 1 EA IV ONE (10:00)
[2023-05-10 12:23] VITALS: BP 88/48; TEMP 97.4; O2SAT 98
[2023-05-10 12:25] VITALS: BP 102/52
[2023-05-10] MEDS ORDERED: DIGO0.123 PO (12:27)
[2023-05-10] MEDS ORDERED: NS 500 ML IV ONE (12:40)
[2023-05-10 13:56] VITALS: BP 103/60
[2023-05-11] MEDS ORDERED: FUROSEMIDE 40 MG TAB PO SCH (09:00)
== END 2023-05-10 15:43 | disposition home or self-care (01) | DRG 291 ==
LOC: M ED 12:55 → M ED INP 16:30 → ENRESERV 19:41 → M PCU 20:39
PROVIDERS: ADMIT Student in an Organized Health Care Education/Training Program; ATTEND Student in an Organized Health Care Education/Training Program
DX: I13.0 Hypertensive heart and chronic kidney disease with heart failure and stage 1 through stage 4 chronic kidney disease, or unspecified chronic kidney disease (principal); I50.33 Acute on chronic diastolic (congestive) heart failure; N17.9 Acute kidney failure, unspecified; I48.91 Unspecified atrial fibrillation; E05.90 Thyrotoxicosis, unspecified without thyrotoxic crisis or storm; N18.32 Chronic kidney disease, stage 3b; Z66 Do not resuscitate; Z95.3 Presence of xenogenic heart valve; Z85.51 Personal history of malignant neoplasm of bladder; Z98.41 Cataract extraction status, right eye; Z98.42 Cataract extraction status, left eye; Z93.59 Other cystostomy status; Z90.49 Acquired absence of other specified parts of digestive tract; Z79.01 Long term (current) use of anticoagulants; Z79.82 Long term (current) use of aspirin; Z79.899 Other long term (current) drug therapy

== ENCOUNTER → 2023-05-15 | Outpatient (REF) | payer MEDICARE ==
[~2023-05-15] MED LIST changes: +AMLO2.5T3; +FURO40TA2 PO
[2023-05-15 14:04] LABS: CALCIUM LEVEL 8.5 MG/DL (8.3-10.6); CREATININE FOR GFR 1.06 MG/DL (0.55-1.30); DIGOXIN LEVEL 1.1 NG/ML (0.8-2.0); GLOMERULAR FILTRATION RATE 52.8 (>32); MAGNESIUM LEVEL 1.9 MG/DL (1.8-2.4); POTASSIUM SERUM 5.2 MMOL/L (3.5-5.1)
== END ==
LOC: M SFHCADAM 11:08
PROVIDERS: ATTEND Physician Assistant Medical
DX: I50.22 Chronic systolic (congestive) heart failure (principal); I48.21 Permanent atrial fibrillation; E83.42 Hypomagnesemia

== ENCOUNTER → 2023-07-17 | Outpatient (REF) | payer MEDICARE, OTHER ==
[2023-07-17 15:07] LABS: THYROID STIMULATING HORMONE 0.874 uIU/ML (0.55-4.78)
[2023-07-17 15:09] LABS: FREE T4 1.16 NG/DL (0.89-1.76)
== END ==
LOC: M LABDRWAD 12:42
PROVIDERS: ATTEND Internal Medicine Endocrinology, Diabetes & Metabolism
DX: E05.20 Thyrotoxicosis with toxic multinodular goiter without thyrotoxic crisis or storm (principal)

== ENCOUNTER → 2023-11-06 | Outpatient (REF) | payer MEDICARE ==
[2023-11-06 14:01] LABS: BASO # 0.1 10^3/uL (0.0-0.2); BASO % 1.6 % (0.0-1.0); EOS # 0.1 10^3/uL (0.0-0.5); EOS % 1.8 % (0.0-3.0); HEMATOCRIT 37.6 % (36.0-47.0); HEMOGLOBIN 11.8 g/dl (12.0-15.5); LYMPH # 1.5 10^3/uL (1.5-5.0); MEAN CORPUSCULAR HEMOGLOBIN 31.5 pg (27.0-33.0); MEAN CORPUSCULAR HGB CONC 31.4 g/dl (32.0-36.5); MEAN CORPUSCULAR VOLUME 100.3 fl (80.0-96.0); MONO # 0.5 10^3/uL (0.0-0.8); NEUTROPHILS # 2.3 10^3/uL (1.5-8.5); NEUTROPHILS % 51.4 % (36.0-66.0); PLATELET COUNT, AUTOMATED 175 10^3/uL (150-450); RED BLOOD COUNT 3.75 10^6/uL (4.00-5.40); WHITE BLOOD COUNT 4.5 10^3/uL (4.0-10.0)
[2023-11-06 14:31] LABS: ALBUMIN 3.9 G/DL (3.2-5.2); BILIRUBIN,TOTAL 0.7 MG/DL (0.3-1.2); CALCIUM LEVEL 8.9 MG/DL (8.3-10.6); CHOLESTEROL RISK RATIO 1.94 (<5); CREATININE FOR GFR 1.13 MG/DL (0.55-1.30); HDL CHOLESTEROL 70.8 MG/DL (>40); MAGNESIUM LEVEL 1.9 MG/DL (1.8-2.4); NON-HDL-C 67.2 MG/DL; POTASSIUM SERUM 4.7 MMOL/L (3.5-5.1); THYROID STIMULATING HORMONE 1.139 uIU/ML (0.55-4.78); TOTAL PROTEIN 7.5 G/DL (5.7-8.2)
[2023-11-06 14:32] LABS: TOTAL 25(OH) VITAMIN D 37.6 NG/ML (20.0-100.0)
== END ==
LOC: M SFHCADAM 10:18
PROVIDERS: ATTEND Physician Assistant Medical
DX: I48.21 Permanent atrial fibrillation (principal); E83.42 Hypomagnesemia; D75.89 Other specified diseases of blood and blood-forming organs; E78.00 Pure hypercholesterolemia, unspecified

== ENCOUNTER → 2023-11-14 | Outpatient (REF) | payer MEDICARE ==
[2023-11-14 13:41] LABS: AMORPHOUS SEDIMENT SMALL (NEGATIVE); APPEARANCE, URINE CLOUDY (CLEAR); BACTERIA, URINE AUTO 1+ (NEGATIVE); BILIRUBIN, URINE AUTO NEGATIVE (NEGATIVE); BLOOD, URINE BLOOD 1+ (NEGATIVE); COLOR, URINE YELLOW (YELLOW); GLUCOSE, URINE (UA) AUTO NEGATIVE (NEGATIVE); KETONE, URINE AUTO NEGATIVE (NEGATIVE); LEUKOCYTE ESTERASE, URINE AUTO 2+ (NEGATIVE); NITRITE, URINE AUTO POSITIVE (NEGATIVE); PROTEIN, URINE AUTO 2+ mg/dL (NEGATIVE); RBC, URINE AUTO 14 /HPF (0-3); SQUAMOUS EPITHELIAL CELL UR AU 1 /HPF (0-6); UROBILINOGEN, URINE AUTO 0.2 mg/dL (0.0-2.0); WBC, URINE AUTO 38 /HPF (0-3)
== END ==
LOC: M SFHCADAM 10:40
PROVIDERS: ATTEND Physician Assistant Medical
DX: R31.0 Gross hematuria (principal)

== ENCOUNTER → 2023-11-20 | Outpatient (REF) | payer MEDICARE ==
[2023-11-20 13:47] LABS: THYROID STIMULATING HORMONE 1.314 uIU/ML (0.55-4.78)
[2023-11-20 13:48] LABS: FREE T4 1.15 NG/DL (0.89-1.76)
== END ==
LOC: M LABDRWAD 13:21
PROVIDERS: ATTEND Nurse Practitioner Family
DX: E05.20 Thyrotoxicosis with toxic multinodular goiter without thyrotoxic crisis or storm (principal)

== ENCOUNTER → 2024-03-13 | Outpatient (REF) | payer MEDICARE ==
[2024-03-13 19:16] LABS: THYROID STIMULATING HORMONE 1.007 uIU/ML (0.55-4.78)
[2024-03-13 19:17] LABS: FREE T4 1.34 NG/DL (0.89-1.76)
== END ==
LOC: M LABDRWAD 17:18
PROVIDERS: ATTEND Nurse Practitioner Family
DX: E05.20 Thyrotoxicosis with toxic multinodular goiter without thyrotoxic crisis or storm (principal)

== ENCOUNTER → 2024-06-23 | Outpatient (REF) | payer MEDICARE ==
[~2024-06-23] MED LIST changes: +METH-1387 PO; -METH10TA PO
[2024-06-23 13:35] LABS: ALBUMIN 3.7 G/DL (3.2-5.2); BILIRUBIN,TOTAL 0.6 MG/DL (0.3-1.2); CALCIUM LEVEL 9.3 MG/DL (8.3-10.6); CHOLESTEROL RISK RATIO 2.31 (<5); CREATININE FOR GFR 1.19 MG/DL (0.55-1.30); HDL CHOLESTEROL 69.9 MG/DL (>40); LDL CHOLESTEROL 74.5 MG/DL (<100); NON-HDL-C 92.1 MG/DL; POTASSIUM SERUM 4.6 MMOL/L (3.5-5.1); TOTAL PROTEIN 7.9 G/DL (5.7-8.2)
[2024-06-23 14:07] LABS: BASO # 0.1 10^3/uL (0.0-0.2); BASO % 1.9 % (0.0-1.0); EOS # 0.2 10^3/uL (0.0-0.5); EOS % 3.5 % (0.0-3.0); HEMATOCRIT 40.3 % (36.0-47.0); HEMOGLOBIN 12.6 g/dl (12.0-15.5); LYMPH # 1.5 10^3/uL (1.5-5.0); LYMPH % 32.1 % (24.0-44.0); MEAN CORPUSCULAR HEMOGLOBIN 32.1 pg (27.0-33.0); MEAN CORPUSCULAR HGB CONC 31.3 g/dl (32.0-36.5); MEAN CORPUSCULAR VOLUME 102.8 fl (80.0-96.0); MONO # 0.5 10^3/uL (0.0-0.8); MONO % 10.2 % (2.0-8.0); NEUTROPHILS # 2.5 10^3/uL (1.5-8.5); NEUTROPHILS % 52.1 % (36.0-66.0); PLATELET COUNT, AUTOMATED 114 10^3/uL (150-450); RED BLOOD COUNT 3.92 10^6/uL (4.00-5.40); WHITE BLOOD COUNT 4.8 10^3/uL (4.0-10.0)
== END ==
LOC: M SFHCADAM 09:43
PROVIDERS: ATTEND Physician Assistant Medical
DX: N18.31 Chronic kidney disease, stage 3a (principal); E55.9 Vitamin D deficiency, unspecified; E53.8 Deficiency of other specified B group vitamins; I12.9 Hypertensive chronic kidney disease with stage 1 through stage 4 chronic kidney disease, or unspecified chronic kidney disease

== ENCOUNTER → 2024-07-21 | Outpatient (REF) | payer MEDICARE ==
[2024-07-21 15:08] LABS: FREE T4 1.29 NG/DL (0.89-1.76); THYROID STIMULATING HORMONE 1.668 uIU/ML (0.55-4.78)
== END ==
LOC: M LABWUC 13:35
PROVIDERS: ATTEND Nurse Practitioner Family
DX: E05.20 Thyrotoxicosis with toxic multinodular goiter without thyrotoxic crisis or storm (principal)

== ENCOUNTER 2024-12-20 14:30 | Emergency (ER) | payer MEDICARE ==
[~2024-12-20] VITALS: Ht 152.4 cm; Wt 43.2 kg
[2024-12-20] MEDS: ACETAMINOPHEN 500 MG TAB PO ONE (15:42)
[2024-12-20] MEDS ORDERED: traMADol 50 MG TAB PO ONE (16:50)
[2024-12-20 17:00] VITALS: BP 120/55; O2SAT 100
[2024-12-20 17:28] VITALS: TEMP 97.8
== END 2024-12-20 17:46 | disposition home or self-care (01) ==
LOC: M ED 14:30 → EDBD 14:30 → EDSEX 14:30 → M ED 17:46
DX: S30.0XXA Contusion of lower back and pelvis, initial encounter (principal); Y92.019 Unspecified place in single-family (private) house as the place of occurrence of the external cause; Y93.9 Activity, unspecified; Y99.9 Unspecified external cause status; W01.0XXA Fall on same level from slipping, tripping and stumbling without subsequent striking against object, initial encounter; I48.91 Unspecified atrial fibrillation; I50.22 Chronic systolic (congestive) heart failure; Z79.1 Long term (current) use of non-steroidal anti-inflammatories (NSAID); Z79.01 Long term (current) use of anticoagulants; Z79.899 Other long term (current) drug therapy

== ENCOUNTER 2024-12-23 13:10 | Inpatient (IN) | payer MEDICARE ==
[~2024-12-23] VITALS: Ht 152.4 cm; Wt 46.6 kg
[2024-12-23 13:46] LABS: BASO # 0.0 10^3/uL (0.0-0.2); BASO % 0.4 % (0.0-1.0); EOS # 0.0 10^3/uL (0.0-0.5); EOS % 0.0 % (0.0-3.0); LYMPH # 0.8 10^3/uL (1.5-5.0); LYMPH % 10.2 % (24.0-44.0); MONO # 0.4 10^3/uL (0.0-0.8); MONO % 5.2 % (2.0-8.0); NEUTROPHILS # 6.8 10^3/uL (1.5-8.5); NEUTROPHILS % 83.7 % (36.0-66.0); PLATELET COUNT, AUTOMATED 132 10^3/uL (150-450)
[2024-12-23] MEDS: NS 500 ML IV ONE ×3 (13:53→15:44)
[2024-12-23] MEDS: PANTOPRAZOLE 40MG VIAL IV ONE (13:57)
[2024-12-23] MEDS ORDERED: METH-1386 PO (13:58)
[2024-12-23] MEDS ORDERED: HOME MED LIST COMPLETE! XX SCH (14:00)
[2024-12-23] MEDS: MORPHINE 2 MG/ML 1 ML VIAL IV PRN (14:03)
[2024-12-23 14:16] LABS: CALCIUM LEVEL 8.4 MG/DL (8.3-10.6); CARBON DIOXIDE LEVEL 14 MMOL/L (20-31); CHLORIDE LEVEL 108 MMOL/L (98-107); CREATININE FOR GFR 1.77 MG/DL (0.55-1.30); GLOMERULAR FILTRATION RATE 28.0 (>32); POTASSIUM SERUM 5.1 MMOL/L (3.5-5.1); SODIUM LEVEL 135 MMOL/L (136-145)
[2024-12-23 14:40] LABS: INR 1.54
[2024-12-23 14:46] LABS: ALT/SGPT 253 U/L (7.0-40); AST/SGOT 297 U/L (<34)
[2024-12-23 15:15] LABS: MAGNESIUM LEVEL 2.2 MG/DL (1.8-2.4)
[2024-12-23] MEDS ORDERED: ACETYLCYSTEINE 20% 30 ML VIAL PO ONE (18:40)
[2024-12-23] MEDS ORDERED: ACETYLCYSTEINE 20% 30 ML VIAL PO SCH (18:40)
[2024-12-23] MEDS: ACETYLCYSTEINE IV ONE ×3 (19:11→23:57)
[2024-12-23] MEDS: D5W IV ONE ×3 (19:11→23:57)
[2024-12-23] MEDS: PANTOPRAZOLE 40MG VIAL IV SCH (20:08)
[2024-12-23] MEDS: SUCRALFATE SUSP 1GM/10ML UD PO SCH (20:08)
[2024-12-23 20:11] LABS: SALICYLATE LEVEL < 3.0 MG/DL (<30)
[2024-12-23] MEDS ORDERED: MAALOX 30 ML SUSP *UDC PO PRN (21:00)
[2024-12-23] MEDS ORDERED: MOM 30 ML SUSPENSION UDC PO PRN (21:00)
[2024-12-23] MEDS: SODIUM CHLORIDE 0.9% 1000 ML IV SCH (21:28)
[2024-12-23] MEDS: DOCUSATE SODIUM 100 MG CAPSULE PO SCH (21:28)
[2024-12-24] MEDS: ACETAMINOPHEN 325 MG TAB PO PRN (00:03)
[2024-12-24 06:51] LABS: PLATELET COUNT, AUTOMATED 92 10^3/uL (150-450)
[2024-12-24 07:07] LABS: ALT/SGPT 199.0 U/L (7.0-40); AST/SGOT 190.0 U/L (<34); CALCIUM LEVEL 8.2 MG/DL (8.3-10.6); CARBON DIOXIDE LEVEL 16.0 MMOL/L (20-31); CHLORIDE LEVEL 111.0 MMOL/L (98-107); CREATININE FOR GFR 1.31 MG/DL (0.55-1.30); GLOMERULAR FILTRATION RATE 40.2 (>32); MAGNESIUM LEVEL 1.9 MG/DL (1.8-2.4); POTASSIUM SERUM 4.2 MMOL/L (3.5-5.1); SODIUM LEVEL 141.0 MMOL/L (136-145)
[2024-12-24] MEDS: DIGOXIN 0.125 MG TAB PO SCH (08:16)
[2024-12-24] MEDS ORDERED: CEFDINIR 300 MG CAP PO SCH ×2 (09:00→21:00)
[2024-12-24 11:34] VITALS: BP 139/68; TEMP 97.8; O2SAT 95
[2024-12-24 15:52] VITALS: BP 120/66; TEMP 98.1; O2SAT 100
[2024-12-24 15:57] LABS: VENOUS BASE EXCESS -13.3 (-2.0-2.0); VENOUS HCO3 13.3 MMOL/L (23.0-27.0); VENOUS O2 SATURATION 87.4 % (60.0-80.0); VENOUS PARTIAL PRESSURE CO2 33.6 mmHg (38.0-50.0); VENOUS PARTIAL PRESSURE O2 60.0 mmHg (30.0-50.0); VENOUS PH 7.217 UNITS (7.330-7.430); VENOUS SITE NOT GIVEN; VENOUS STANDARD HCO3 14.0 MMOL/L; VENOUS TOTAL CO2 14.4 MMOL/L (24.0-28.0)
[2024-12-24 16:06] LABS: INR 1.31
[2024-12-24 16:18] VITALS: BP 128/75; O2SAT 98
[2024-12-24 16:20] LABS: ALT/SGPT 197.0 U/L (7.0-40); AST/SGOT 172.0 U/L (<34); CALCIUM LEVEL 8.3 MG/DL (8.3-10.6); CARBON DIOXIDE LEVEL 16.0 MMOL/L (20-31); CHLORIDE LEVEL 110.0 MMOL/L (98-107); CREATININE FOR GFR 1.18 MG/DL (0.55-1.30); GLOMERULAR FILTRATION RATE 45.5 (>32); POTASSIUM SERUM 4.1 MMOL/L (3.5-5.1); SODIUM LEVEL 139.0 MMOL/L (136-145)
[2024-12-24 17:33] LABS: DIGOXIN LEVEL 1.5 NG/ML (0.8-2.0)
[2024-12-24] MEDS: NS (Normal Saline) 0.9% 1,000 ML IV SCH (18:08)
[2024-12-24 20:00] VITALS: BP 125/59; TEMP 98
[2024-12-24 20:30] LABS: KETONE, URINE AUTO RFX NEGATIVE (NEGATIVE); MUCUS, URINE RFX SMALL (NEGATIVE); RBC, URINE AUTO RFX 6 /HPF (0-3); SQUAM EPITHELIAL CELL UR AURFX 0 /HPF (0-6)
[2024-12-24] MEDS ORDERED: KETOROLAC 30 MG/ML 1 ML VIAL IV ONE (20:30)
[2024-12-24 20:31] LABS: LEUKOCYTE ESTERASE UR AUTO RFX 3+ (NEGATIVE); NITRITE, URINE AUTO RFX POSITIVE (NEGATIVE); WBC, URINE AUTO RFX 25 /HPF (0-3)
[2024-12-24] MEDS: CEFDINIR 300 MG CAP PO SCH (20:46)
[2024-12-24] MEDS: METOPROLOL TART 25 MG TABLET PO SCH (20:46)
[2024-12-25] VITALS (8 sets, daily range): BP systolic 90–129; BP diastolic 56–94; TEMP 97–98; O2SAT 94–99
[2024-12-25 09:24] LABS: PLATELET COUNT, AUTOMATED 109 10^3/uL (150-450)
[2024-12-25 09:51] LABS: ALT/SGPT 182.0 U/L (7.0-40); AST/SGOT 135.0 U/L (<34); CALCIUM LEVEL 8.4 MG/DL (8.3-10.6); CARBON DIOXIDE LEVEL 15.0 MMOL/L (20-31); CHLORIDE LEVEL 116.0 MMOL/L (98-107); CREATININE FOR GFR 1.1 MG/DL (0.55-1.30); GLOMERULAR FILTRATION RATE 49.6 (>32); POTASSIUM SERUM 3.8 MMOL/L (3.5-5.1); SODIUM LEVEL 145.0 MMOL/L (136-145)
[2024-12-26] VITALS: BP 97/63; TEMP 97.1; O2SAT 97
[2024-12-26 03:56] VITALS: BP 111/54; TEMP 97; O2SAT 96
[2024-12-26 04:00] VITALS: BP 111/54; TEMP 97; O2SAT 96
[2024-12-26 06:35] LABS: PLATELET COUNT, AUTOMATED 91 10^3/uL (150-450)
[2024-12-26 06:57] LABS: ALT/SGPT 119.0 U/L (7.0-40); AST/SGOT 72.0 U/L (<34); CALCIUM LEVEL 7.9 MG/DL (8.3-10.6); CARBON DIOXIDE LEVEL 18.0 MMOL/L (20-31); CHLORIDE LEVEL 118.0 MMOL/L (98-107); CREATININE FOR GFR 1.13 MG/DL (0.55-1.30); GLOMERULAR FILTRATION RATE 48.0 (>32); POTASSIUM SERUM 4.0 MMOL/L (3.5-5.1); SODIUM LEVEL 145.0 MMOL/L (136-145)
[2024-12-26] MEDS ORDERED: PROT1TAB2 PO (07:20)
[2024-12-26] MEDS ORDERED: CEFD300CAP PO (07:20)
[2024-12-26] MEDS ORDERED: COLA100C5 PO (07:20)
[2024-12-26] MEDS ORDERED: SUCR1TA PO (07:20)
[2024-12-26] MEDS ORDERED: METO1TAB87 PO (07:20)
[2024-12-26 08:16] VITALS: BP 106/56; TEMP 98.4; O2SAT 99
[2024-12-26 08:57] VITALS: BP 106/56
[2024-12-26] MEDS: CEFDINIR 300 MG CAP PO SCH (09:05)
[2024-12-26 11:55] VITALS: BP 107/73; TEMP 97.8; O2SAT 96
[2024-12-26 13:07] LABS: PLATELET COUNT, AUTOMATED 93 10^3/uL (150-450)
[2024-12-26] MEDS ORDERED: ACET-907 PO (18:50)
== END 2024-12-26 16:44 | disposition home health service (06) | DRG 551 ==
LOC: EDBD 13:10 → M ED 13:10 → M ED INP 21:00 → M PCU 12-24 11:26
PROVIDERS: ADMIT Student in an Organized Health Care Education/Training Program; ATTEND Student in an Organized Health Care Education/Training Program
DX: S32.001A Stable burst fracture of unspecified lumbar vertebra, initial encounter for closed fracture (principal); K29.71 Gastritis, unspecified, with bleeding; I50.32 Chronic diastolic (congestive) heart failure; I13.0 Hypertensive heart and chronic kidney disease with heart failure and stage 1 through stage 4 chronic kidney disease, or unspecified chronic kidney disease; S32.10XA Unspecified fracture of sacrum, initial encounter for closed fracture; D68.32 Hemorrhagic disorder due to extrinsic circulating anticoagulants; S32.040A Wedge compression fracture of fourth lumbar vertebra, initial encounter for closed fracture; Z66 Do not resuscitate; N18.32 Chronic kidney disease, stage 3b; E05.90 Thyrotoxicosis, unspecified without thyrotoxic crisis or storm; I48.91 Unspecified atrial fibrillation; R74.01 Elevation of levels of liver transaminase levels; Z95.2 Presence of prosthetic heart valve; E03.9 Hypothyroidism, unspecified; Z85.51 Personal history of malignant neoplasm of bladder; Z98.41 Cataract extraction status, right eye; Z98.42 Cataract extraction status, left eye; Z90.79 Acquired absence of other genital organ(s); Z90.49 Acquired absence of other specified parts of digestive tract; W19.XXXA Unspecified fall, initial encounter; Y92.9 Unspecified place or not applicable; Z79.01 Long term (current) use of anticoagulants; Z79.82 Long term (current) use of aspirin; Z79.899 Other long term (current) drug therapy

== ENCOUNTER 2025-01-07 00:08 | Inpatient (IN) | payer MEDICARE ==
[~2025-01-07] VITALS: Ht 152.4 cm; Wt 41.4 kg
[~2025-01-07 00:08] MED LIST changes: +ACET-907 PO; +CEFD300CAP PO; +COLA100C5 PO; +METH-1386 PO; +PROT1TAB2 PO; +SUCR1TA PO
[2025-01-07 00:59] LABS: BASO # 0.0 10^3/uL (0.0-0.2); BASO % 0.5 % (0.0-1.0); EOS # 0.0 10^3/uL (0.0-0.5); EOS % 0.3 % (0.0-3.0); LYMPH # 1.0 10^3/uL (1.5-5.0); LYMPH % 16.2 % (24.0-44.0); MONO # 0.7 10^3/uL (0.0-0.8); MONO % 11.2 % (2.0-8.0); NEUTROPHILS # 4.6 10^3/uL (1.5-8.5); NEUTROPHILS % 71.0 % (36.0-66.0); PLATELET COUNT, AUTOMATED 165 10^3/uL (150-450)
[2025-01-07 01:00] LABS: CK-MB VALUE MASS 2.8 NG/ML (<3.6)
[2025-01-07 01:01] LABS: ETHYL ALCOHOL (ETHANOL) < 0.003 % (0.000-0.010)
[2025-01-07 01:02] LABS: ALT/SGPT 24 U/L (7.0-40); AST/SGOT 26 U/L (<34); CALCIUM LEVEL 8.4 MG/DL (8.3-10.6); CARBON DIOXIDE LEVEL 18 MMOL/L (20-31); CHLORIDE LEVEL 108 MMOL/L (98-107); CPK CREATINE PHOSPHOKINASE 74 U/L (34-145); CREATININE FOR GFR 1.17 MG/DL (0.55-1.30); GLOMERULAR FILTRATION RATE 46.0 (>32); MB/CK RELATIVE INDEX 3.78 (< OR =4); POTASSIUM SERUM 4.1 MMOL/L (3.5-5.1); SALICYLATE LEVEL < 3.0 MG/DL (<30); SODIUM LEVEL 141 MMOL/L (136-145)
[2025-01-07 01:13] LABS: VENOUS BASE EXCESS -11.0 (-2.0-2.0); VENOUS HCO3 16.0 MMOL/L (23.0-27.0); VENOUS O2 SATURATION 79.8 % (60.0-80.0); VENOUS PARTIAL PRESSURE CO2 39.9 mmHg (38.0-50.0); VENOUS PARTIAL PRESSURE O2 47.7 mmHg (30.0-50.0); VENOUS PH 7.221 UNITS (7.330-7.430); VENOUS STANDARD HCO3 15.5 MMOL/L; VENOUS TOTAL CO2 17.2 MMOL/L (24.0-28.0)
[2025-01-07 01:31] LABS: KETONE, URINE AUTO RFX NEGATIVE (NEGATIVE); MUCUS, URINE RFX SMALL (NEGATIVE); NITRITE, URINE AUTO RFX NEGATIVE (NEGATIVE); RBC, URINE AUTO RFX 5 /HPF (0-3); SQUAM EPITHELIAL CELL UR AURFX 0 /HPF (0-6)
[2025-01-07 01:42] LABS: AMPHETAMINES LEVEL URINE NEGATIVE (NEGATIVE); BARBITURATES URINE NEGATIVE (NEGATIVE); BENZODIAZEPINES URINE NEGATIVE (NEGATIVE); COCAINE METABOLITE URINE NEGATIVE (NEGATIVE); METHADONE URINE NEGATIVE (NEGATIVE); OPIATES URINE NEGATIVE (NEGATIVE)
[2025-01-07 01:43] LABS: CANNABINOIDS URINE NEGATIVE (NEGATIVE); PHENCYCLIDINE URINE NEGATIVE (NEGATIVE)
[2025-01-07 02:32] LABS: LEUKOCYTE ESTERASE UR AUTO RFX 1+ (NEGATIVE); WBC, URINE AUTO RFX 24 /HPF (0-3)
[2025-01-07] MEDS: NS (Normal Saline) 0.9% 1,000 ML IV ONE (04:05)
[2025-01-07] MEDS: cefTRIAXone SOD 1 GM in DEXTROSE 5% (D5W) ADV/MINI-BAG 50 ML IV ONE (04:05)
[2025-01-07] MEDS: LR 1,000 ML IV SCH (05:43)
[2025-01-07 06:42] LABS: PLATELET COUNT, AUTOMATED 147 10^3/uL (150-450)
[2025-01-07 07:07] LABS: CALCIUM LEVEL 8.1 MG/DL (8.3-10.6); CARBON DIOXIDE LEVEL 19.0 MMOL/L (20-31); CHLORIDE LEVEL 110.0 MMOL/L (98-107); CREATININE FOR GFR 1.05 MG/DL (0.55-1.30); GLOMERULAR FILTRATION RATE 52.4 (>32); POTASSIUM SERUM 3.8 MMOL/L (3.5-5.1); SODIUM LEVEL 141.0 MMOL/L (136-145)
[2025-01-07] MEDS ORDERED: D31000TA PO (07:56)
[2025-01-07] MEDS ORDERED: TRAM50TA2 PO (07:56)
[2025-01-07] MEDS ORDERED: SUCR1TA PO (07:56)
[2025-01-07] MEDS ORDERED: PANT40TA29 PO (07:56)
[2025-01-07] MEDS ORDERED: CEFD1CAP9 PO (07:56)
[2025-01-07] MEDS ORDERED: HOME MED LIST COMPLETE! XX SCH (08:00)
[2025-01-07] MEDS ORDERED: PILL CUTTER 1 EACH XX PRN (08:05)
[2025-01-07] MEDS ORDERED: PANTOPRAZOLE 40MG TAB PO SCH (09:00)
[2025-01-07] MEDS: METOPROLOL TART 25 MG TABLET PO SCH (09:32)
[2025-01-07] MEDS: SUCRALFATE 1 GM TAB PO SCH (09:32)
[2025-01-07] MEDS: PANTOPRAZOLE 40MG TAB PO SCH (09:32)
[2025-01-07] MEDS: DIGOXIN 0.125 MG TAB PO SCH (09:33)
[2025-01-07 12:00] VITALS: BP 110/70; TEMP 98; O2SAT 96
[2025-01-07 12:17] VITALS: BP 144/67; TEMP 97.5; O2SAT 94
[2025-01-07 15:38] LABS: DIGOXIN LEVEL 1.1 NG/ML (0.8-2.0)
[2025-01-07 16:00] VITALS: BP 112/80; TEMP 98; O2SAT 94
[2025-01-07 20:00] VITALS: BP 112/58; TEMP 97.7; O2SAT 99
[2025-01-07] MEDS: traMADol 50 MG TAB PO PRN (20:16)
[2025-01-08] VITALS (10 sets, daily range): BP systolic 101–112; BP diastolic 55–64; TEMP 96.6–97.9; O2SAT 91–100
[2025-01-08] MEDS: cefTRIAXone SOD 1 GM in DEXTROSE 5% (D5W) ADV/MINI-BAG 50 ML IV SCH (03:23)
[2025-01-08] MEDS: traMADol 50 MG TAB PO ONE (03:28)
[2025-01-08 06:28] LABS: PLATELET COUNT, AUTOMATED 114 10^3/uL (150-450)
[2025-01-08 06:46] LABS: CALCIUM LEVEL 7.8 MG/DL (8.3-10.6); CARBON DIOXIDE LEVEL 17.0 MMOL/L (20-31); CHLORIDE LEVEL 110.0 MMOL/L (98-107); CREATININE FOR GFR 1.04 MG/DL (0.55-1.30); GLOMERULAR FILTRATION RATE 53.0 (>32); POTASSIUM SERUM 4.1 MMOL/L (3.5-5.1); SODIUM LEVEL 140.0 MMOL/L (136-145)
[2025-01-08] MEDS: CEFDINIR 300 MG CAP PO SCH (20:33)
[2025-01-09] VITALS: BP 102/54; TEMP 97.8; O2SAT 100
[2025-01-09 06:00] LABS: PLATELET COUNT, AUTOMATED 110 10^3/uL (150-450)
[2025-01-09 06:33] LABS: CALCIUM LEVEL 7.6 MG/DL (8.3-10.6); CARBON DIOXIDE LEVEL 16.0 MMOL/L (20-31); CHLORIDE LEVEL 107.0 MMOL/L (98-107); CREATININE FOR GFR 1.2 MG/DL (0.55-1.30); GLOMERULAR FILTRATION RATE 44.6 (>32); POTASSIUM SERUM 4.3 MMOL/L (3.5-5.1); SODIUM LEVEL 138.0 MMOL/L (136-145)
[2025-01-09 07:46] VITALS: BP 103/55; TEMP 98.1; O2SAT 100
[2025-01-09] MEDS: DIGOXIN 0.125 MG TAB PO SCH (09:27)
[2025-01-09 09:28] VITALS: BP 114/64
[2025-01-09] MEDS: FUROSEMIDE 40 MG TAB PO SCH (09:28)
[2025-01-09 12:00] VITALS: BP 123/64; TEMP 97; O2SAT 98
== END 2025-01-09 13:52 | disposition home health service (06) | DRG 690 ==
LOC: M ED 00:08 → EDBD 00:08 → M ED INP 04:46 → M MSPAV 12:17
PROVIDERS: ADMIT Student in an Organized Health Care Education/Training Program; ATTEND Internal Medicine
DX: N39.0 Urinary tract infection, site not specified (principal); I50.42 Chronic combined systolic (congestive) and diastolic (congestive) heart failure; I13.0 Hypertensive heart and chronic kidney disease with heart failure and stage 1 through stage 4 chronic kidney disease, or unspecified chronic kidney disease; M48.56XA Collapsed vertebra, not elsewhere classified, lumbar region, initial encounter for fracture; R74.8 Abnormal levels of other serum enzymes; I48.91 Unspecified atrial fibrillation; R29.6 Repeated falls; R54 Age-related physical debility; E05.90 Thyrotoxicosis, unspecified without thyrotoxic crisis or storm; M54.9 Dorsalgia, unspecified; N18.32 Chronic kidney disease, stage 3b; Z98.41 Cataract extraction status, right eye; Z95.3 Presence of xenogenic heart valve; Z85.51 Personal history of malignant neoplasm of bladder; Z98.42 Cataract extraction status, left eye; Z90.49 Acquired absence of other specified parts of digestive tract; R00.1 Bradycardia, unspecified; Z79.899 Other long term (current) drug therapy

== ENCOUNTER → 2025-01-26 | Outpatient (REF) | payer MEDICARE ==
[~2025-01-26] MED LIST changes: +CEFD1CAP9 PO; +D31000TA PO; +PANT40TA29 PO; +TRAM50TA2 PO
[2025-01-26 15:20] LABS: BASO # 0.1 10^3/uL (0.0-0.2); BASO % 1.3 % (0.0-1.0); EOS # 0.0 10^3/uL (0.0-0.5); EOS % 0.3 % (0.0-3.0); LYMPH # 1.1 10^3/uL (1.5-5.0); LYMPH % 28.8 % (24.0-44.0); MONO # 0.3 10^3/uL (0.0-0.8); MONO % 9.1 % (2.0-8.0); NEUTROPHILS # 2.3 10^3/uL (1.5-8.5); NEUTROPHILS % 60.0 % (36.0-66.0); PLATELET COUNT, AUTOMATED 156 10^3/uL (150-450)
[2025-01-26 15:47] LABS: ALT/SGPT 19.0 U/L (7.0-40); AST/SGOT 35.0 U/L (<34); CALCIUM LEVEL 8.5 MG/DL (8.3-10.6); CARBON DIOXIDE LEVEL 19.0 MMOL/L (20-31); CHLORIDE LEVEL 111.0 MMOL/L (98-107); CHOLESTEROL LEVEL 141.0 MG/DL (<200); CHOLESTEROL RISK RATIO 1.92 (<5); CREATININE FOR GFR 1.13 MG/DL (0.55-1.30); GLOMERULAR FILTRATION RATE 48.0 (>32); LDL CHOLESTEROL 56.6 MG/DL (<100); MAGNESIUM LEVEL 2.1 MG/DL (1.8-2.4); NON-HDL-C 67.6 MG/DL; POTASSIUM SERUM 5.2 MMOL/L (3.5-5.1); SODIUM LEVEL 141.0 MMOL/L (136-145); TOTAL 25(OH) VITAMIN D 31.4 NG/ML (20.0-100.0); TRIGLYCERIDES LEVEL 55.0 MG/DL (<150)
[2025-01-26 15:48] LABS: FREE T4 1.33 NG/DL (0.89-1.76); VITAMIN B12 LEVEL 957.0 PG/ML (211-911)
[2025-01-26 16:02] LABS: ESTIMATED AVERAGE GLUCOSE 94.0 MG/DL (60-110)
== END ==
LOC: M SHH 14:32
PROVIDERS: ATTEND Physician Assistant Medical
DX: I48.21 Permanent atrial fibrillation (principal); N18.31 Chronic kidney disease, stage 3a; D75.89 Other specified diseases of blood and blood-forming organs; E55.9 Vitamin D deficiency, unspecified; I11.0 Hypertensive heart disease with heart failure; Z79.899 Other long term (current) drug therapy

== ENCOUNTER → 2025-02-09 | Outpatient (REF) | payer MEDICARE ==
[~2025-02-09] MED LIST changes: -VITA500T17 PO; +VITA500T8 PO
[2025-02-09 15:36] LABS: PLATELET COUNT, AUTOMATED 198 10^3/uL (150-450)
== END ==
LOC: M SHH 14:33
PROVIDERS: ATTEND Physician Assistant
DX: N39.0 Urinary tract infection, site not specified (principal); K29.01 Acute gastritis with bleeding

== ENCOUNTER → 2025-02-17 | Outpatient (REF) | payer MEDICARE ==
[2025-02-17 18:16] LABS: PLATELET COUNT, AUTOMATED 189 10^3/uL (150-450)
[2025-02-17 18:21] LABS: ALT/SGPT 26.0 U/L (7.0-40); AST/SGOT 41.0 U/L (<34); CALCIUM LEVEL 9.0 MG/DL (8.3-10.6); CARBON DIOXIDE LEVEL 22.0 MMOL/L (20-31); CHLORIDE LEVEL 109.0 MMOL/L (98-107); CREATININE FOR GFR 1.08 MG/DL (0.55-1.30); GLOMERULAR FILTRATION RATE 50.7 (>32); POTASSIUM SERUM 5.1 MMOL/L (3.5-5.1); SODIUM LEVEL 140.0 MMOL/L (136-145)
== END ==
LOC: M LAB REF 17:41
PROVIDERS: ATTEND Physician Assistant Medical
DX: R79.89 Other specified abnormal findings of blood chemistry (principal); K29.01 Acute gastritis with bleeding

== ENCOUNTER → 2025-02-23 | Outpatient (REF) | payer MEDICARE ==
[2025-02-23 16:11] LABS: PLATELET COUNT, AUTOMATED 179 10^3/uL (150-450)
== END ==
LOC: M SHH 15:03
PROVIDERS: ATTEND Physician Assistant Medical
DX: K29.01 Acute gastritis with bleeding (principal)

== ENCOUNTER → 2025-02-25 | Outpatient (CLI) | payer MEDICARE | LOC: M RAD 12:56 | PROVIDERS: ATTEND Physician Assistant | DX: S32.031D Stable burst fracture of third lumbar vertebra, subsequent encounter for fracture with routine healing (principal) ==

== ENCOUNTER → 2025-03-02 | Outpatient (REF) | payer MEDICARE ==
[2025-03-02 12:03] LABS: BASO # 0.1 10^3/uL (0.0-0.2); BASO % 1.1 % (0.0-1.0); EOS # 0.1 10^3/uL (0.0-0.5); EOS % 1.5 % (0.0-3.0); LYMPH # 1.0 10^3/uL (1.5-5.0); LYMPH % 21.9 % (24.0-44.0); MONO # 0.5 10^3/uL (0.0-0.8); MONO % 9.8 % (2.0-8.0); NEUTROPHILS # 3.0 10^3/uL (1.5-8.5); NEUTROPHILS % 65.5 % (36.0-66.0); PLATELET COUNT, AUTOMATED 157 10^3/uL (150-450)
[2025-03-02 12:38] LABS: ALT/SGPT 19.0 U/L (7.0-40); AST/SGOT 32.0 U/L (<34); CALCIUM LEVEL 8.1 MG/DL (8.3-10.6); CARBON DIOXIDE LEVEL 25.0 MMOL/L (20-31); CHLORIDE LEVEL 105.0 MMOL/L (98-107); CREATININE FOR GFR 1.1 MG/DL (0.55-1.30); GLOMERULAR FILTRATION RATE 49.6 (>32); POTASSIUM SERUM 4.6 MMOL/L (3.5-5.1); SODIUM LEVEL 139.0 MMOL/L (136-145)
== END ==
LOC: M LAB REF 10:59 → M SFHCADAM 10:59
PROVIDERS: ATTEND Physician Assistant Medical
DX: R79.89 Other specified abnormal findings of blood chemistry (principal); K29.01 Acute gastritis with bleeding

== ENCOUNTER → 2025-03-18 | Outpatient (REF) | payer MEDICARE ==
[2025-03-18 15:12] LABS: PLATELET COUNT, AUTOMATED 179 10^3/uL (150-450)
== END ==
LOC: M SFHCADAM 09:56
PROVIDERS: ATTEND Physician Assistant Medical
DX: D50.0 Iron deficiency anemia secondary to blood loss (chronic) (principal)

== ENCOUNTER → 2025-03-24 | Outpatient (CLI) | payer MEDICARE | LOC: M RAD 10:02 | PROVIDERS: ATTEND Physician Assistant | DX: S32.031D Stable burst fracture of third lumbar vertebra, subsequent encounter for fracture with routine healing (principal); M47.816 Spondylosis without myelopathy or radiculopathy, lumbar region ==

== ENCOUNTER 2025-05-02 11:32 | Inpatient (IN) | payer MEDICARE ==
[~2025-05-02] VITALS: Ht 152.4 cm; Wt 43.0 kg
[2025-05-02 08:40] VITALS: BP 104/57; TEMP 97.5; O2SAT 98
[2025-05-02] MEDS: MORPHINE 4 MG/ML 1 ML VIAL IV ONE (13:06)
[2025-05-02 13:18] LABS: BASO # 0.0 10^3/uL (0.0-0.2); BASO % 0.1 % (0.0-1.0); EOS # 0.0 10^3/uL (0.0-0.5); EOS % 0.0 % (0.0-3.0); LYMPH # 0.6 10^3/uL (1.5-5.0); LYMPH % 6.7 % (24.0-44.0); MONO # 0.5 10^3/uL (0.0-0.8); MONO % 5.5 % (2.0-8.0); NEUTROPHILS # 7.3 10^3/uL (1.5-8.5); NEUTROPHILS % 87.2 % (36.0-66.0); PLATELET COUNT, AUTOMATED 132 10^3/uL (150-450)
[2025-05-02 13:46] LABS: CALCIUM LEVEL 8.0 MG/DL (8.3-10.6); CARBON DIOXIDE LEVEL 12.0 MMOL/L (20-31); CHLORIDE LEVEL 111.0 MMOL/L (98-107); CREATININE FOR GFR 1.58 MG/DL (0.55-1.30); GLOMERULAR FILTRATION RATE 32.1 (>32); POTASSIUM SERUM 5.5 MMOL/L (3.5-5.1); SODIUM LEVEL 137.0 MMOL/L (136-145)
[2025-05-02] MEDS: DEXTROSE 50% 50 ML SYRINGE IV STA (14:33)
[2025-05-02] MEDS: HumuLIN R (REGULAR) INSULIN (NovoLIN R) **100 U/ML** PER UNIT IV ONE (14:36)
[2025-05-02] MEDS: CALCIUM GLUCONATE 1,000 MG in DEXTROSE 5% (D5W) MINI-BAG PLU 100 ML IV ONE (14:37)
[2025-05-02] MEDS: PATIROMER SORBITEX CALCIUM 8.4GM POWDER PACKET PO ONE (14:43)
[2025-05-02] MEDS: NS (Normal Saline) 0.9% 1,000 ML IV SCH (14:55)
[2025-05-02] MEDS: METOPROLOL 5 MG/5 ML VIAL IV STA (15:22)
[2025-05-02] MEDS: NS 500 ML IV ONE (16:05)
[2025-05-02] MEDS ORDERED: HOME MED LIST COMPLETE! XX SCH (16:50)
[2025-05-02 18:11] LABS: AMORPHOUS SEDIMENT SMALL (NEGATIVE); APPEARANCE, URINE TURBID (CLEAR); BACTERIA, URINE AUTO 2+ (NEGATIVE); BILIRUBIN, URINE AUTO NEGATIVE (NEGATIVE); BLOOD, URINE BLOOD 1+ (NEGATIVE); GLUCOSE, URINE (UA) AUTO NEGATIVE (NEGATIVE); KETONE, URINE AUTO TRACE mg/dL (NEGATIVE); LEUKOCYTE ESTERASE, URINE AUTO 1+ (NEGATIVE); MUCUS, URINE LARGE (NEGATIVE); NITRITE, URINE AUTO NEGATIVE (NEGATIVE); PROTEIN, URINE AUTO 2+ mg/dL (NEGATIVE); RBC, URINE AUTO 11 /HPF (0-3); SPECIFIC GRAVITY URINE AUTO 1.013 (1.002-1.035); SQUAMOUS EPITHELIAL CELL UR AU 1 /HPF (0-6); TRIPLE PHOSPHATE CRYSTALS SMALL; UROBILINOGEN, URINE AUTO 0.2 mg/dL (0.0-2.0); WBC, URINE AUTO 172 /HPF (0-3)
[2025-05-02 18:23] LABS: CHLORIDE,RANDOM URINE 46.0 MMOL/L; POTASSIUM RANDOM URINE 28.0 MMOL/L; SODIUM,RANDOM URINE 40.0 MMOL/L
[2025-05-02 18:30] LABS: AMPHETAMINES LEVEL URINE NEGATIVE (NEGATIVE); BARBITURATES URINE NEGATIVE (NEGATIVE); BENZODIAZEPINES URINE NEGATIVE (NEGATIVE); CANNABINOIDS URINE NEGATIVE (NEGATIVE); COCAINE METABOLITE URINE NEGATIVE (NEGATIVE); METHADONE URINE NEGATIVE (NEGATIVE); OPIATES URINE NEGATIVE (NEGATIVE); PHENCYCLIDINE URINE NEGATIVE (NEGATIVE)
[2025-05-02 18:52] LABS: VENOUS BASE EXCESS -17.1 (-2.0-2.0); VENOUS HCO3 10.6 MMOL/L (23.0-27.0); VENOUS O2 SATURATION 89.9 % (60.0-80.0); VENOUS PARTIAL PRESSURE CO2 31.4 mmHg (38.0-50.0); VENOUS PARTIAL PRESSURE O2 61.2 mmHg (30.0-50.0); VENOUS PH 7.145 UNITS (7.330-7.430); VENOUS STANDARD HCO3 11.7 MMOL/L; VENOUS TOTAL CO2 11.5 MMOL/L (24.0-28.0)
[2025-05-02 19:32] LABS: ACETONE/KETONE 0.80 MMOL/L (0.02-0.27)
[2025-05-02 19:33] LABS: DIGOXIN LEVEL 1.1 NG/ML (0.8-2.0); SALICYLATE LEVEL < 3.0 MG/DL (<30)
[2025-05-02 19:41] LABS: CALCIUM LEVEL 7.9 MG/DL (8.3-10.6); CARBON DIOXIDE LEVEL 12 MMOL/L (20-31); CHLORIDE LEVEL 114 MMOL/L (98-107); CK-MB VALUE MASS 3.2 NG/ML (<3.6); CPK CREATINE PHOSPHOKINASE 49 U/L (34-145); CREATININE FOR GFR 1.48 MG/DL (0.55-1.30); FREE T4 1.05 NG/DL (0.89-1.76); GLOMERULAR FILTRATION RATE 34.7 (>32); MB/CK RELATIVE INDEX 6.53 (< OR =4); POTASSIUM SERUM 4.6 MMOL/L (3.5-5.1); SODIUM LEVEL 137 MMOL/L (136-145)
[2025-05-02] MEDS ORDERED: SODIUM BICARBONATE 150 MEQ in D5W 1,000 ML IV SCH (20:00)
[2025-05-02] MEDS ORDERED: SODIUM BICARBONATE 75 MEQ in NS 0.45% 1,000 ML IV SCH (20:00)
[2025-05-02 20:40] VITALS: BP 104/57; TEMP 97.5; O2SAT 98
[2025-05-02 21:00] VITALS: O2SAT 97
[2025-05-02] MEDS: APIXABAN 2.5 MG TAB PO SCH (21:44)
[2025-05-02] MEDS: SODIUM BICARBONATE 150 MEQ in D5W 1,000 ML IV SCH (21:44)
[2025-05-02 22:00] VITALS: O2SAT 98
[2025-05-02 23:00] VITALS: O2SAT 99
[2025-05-02 23:49] VITALS: BP 121/68; TEMP 97.7; O2SAT 99
[2025-05-03] VITALS (17 sets, daily range): BP systolic 94–122; BP diastolic 58–70; TEMP 97–98.7; O2SAT 93–100
[2025-05-03 05:34] LABS: BASO # 0.0 10^3/uL (0.0-0.2); BASO % 0.3 % (0.0-1.0); EOS # 0.0 10^3/uL (0.0-0.5); EOS % 0.0 % (0.0-3.0); LYMPH # 0.6 10^3/uL (1.5-5.0); LYMPH % 10.1 % (24.0-44.0); MONO # 0.5 10^3/uL (0.0-0.8); MONO % 8.5 % (2.0-8.0); NEUTROPHILS # 5.1 10^3/uL (1.5-8.5); NEUTROPHILS % 80.8 % (36.0-66.0); PLATELET COUNT, AUTOMATED 118 10^3/uL (150-450)
[2025-05-03 05:54] LABS: CALCIUM LEVEL 8.0 MG/DL (8.3-10.6); CARBON DIOXIDE LEVEL 18.0 MMOL/L (20-31); CHLORIDE LEVEL 111.0 MMOL/L (98-107); CREATININE FOR GFR 1.55 MG/DL (0.55-1.30); GLOMERULAR FILTRATION RATE 32.8 (>32); MAGNESIUM LEVEL 1.8 MG/DL (1.8-2.4); POTASSIUM SERUM 4.2 MMOL/L (3.5-5.1); SODIUM LEVEL 138.0 MMOL/L (136-145)
[2025-05-03] MEDS: ACETAMINOPHEN 325 MG TAB PO PRN (09:22)
[2025-05-03] MEDS: PANTOPRAZOLE 40MG VIAL IV SCH (09:38)
[2025-05-03] MEDS: METOPROLOL TART 12.5 MG PER 1/2 TAB PO SCH (09:39)
[2025-05-03] MEDS: DIGOXIN 0.125 MG TAB PO SCH (09:39)
[2025-05-03] MEDS: CYANOCOBALAMIN 500 MCG TAB PO SCH (09:39)
[2025-05-03] MEDS: SODIUM BICARBONATE 75 MEQ in NS 0.45% 1,000 ML IV SCH (09:40)
[2025-05-04] VITALS (27 sets, daily range): BP systolic 93–143; BP diastolic 56–76; TEMP 97.4–98.6; O2SAT 92–100
[2025-05-04 06:16] LABS: BASO # 0.0 10^3/uL (0.0-0.2); BASO % 0.2 % (0.0-1.0); EOS # 0.0 10^3/uL (0.0-0.5); EOS % 0.0 % (0.0-3.0); LYMPH # 0.8 10^3/uL (1.5-5.0); LYMPH % 13.3 % (24.0-44.0); MONO # 0.5 10^3/uL (0.0-0.8); MONO % 8.1 % (2.0-8.0); NEUTROPHILS # 4.9 10^3/uL (1.5-8.5); NEUTROPHILS % 78.1 % (36.0-66.0); PLATELET COUNT, AUTOMATED 100 10^3/uL (150-450)
[2025-05-04 06:39] LABS: CALCIUM LEVEL 7.3 MG/DL (8.3-10.6); CARBON DIOXIDE LEVEL 21.0 MMOL/L (20-31); CHLORIDE LEVEL 107.0 MMOL/L (98-107); CREATININE FOR GFR 1.35 MG/DL (0.55-1.30); GLOMERULAR FILTRATION RATE 38.8 (>32); MAGNESIUM LEVEL 1.7 MG/DL (1.8-2.4); POTASSIUM SERUM 3.8 MMOL/L (3.5-5.1); SODIUM LEVEL 138.0 MMOL/L (136-145)
[2025-05-04] MEDS: MAG SULF 1GM/100ML (MAG RUN) 1 GM in IV 1 EA IV ONE (10:02)
[2025-05-04] MEDS ORDERED: ISOVUE-300 61% 100 ML VIAL As Ordered ONE (13:08)
[2025-05-04] MEDS: CIPROFLOXACIN 400 MG in IV 1 EA IV ONE (15:51)
[2025-05-05] VITALS (18 sets, daily range): BP systolic 103–134; BP diastolic 56–92; TEMP 97.5–98.5; O2SAT 94–98
[2025-05-05 06:18] LABS: BASO # 0.0 10^3/uL (0.0-0.2); BASO % 0.2 % (0.0-1.0); EOS # 0.0 10^3/uL (0.0-0.5); EOS % 0.1 % (0.0-3.0); LYMPH # 0.6 10^3/uL (1.5-5.0); LYMPH % 6.3 % (24.0-44.0); MONO # 0.6 10^3/uL (0.0-0.8); MONO % 6.7 % (2.0-8.0); NEUTROPHILS # 8.0 10^3/uL (1.5-8.5); NEUTROPHILS % 86.3 % (36.0-66.0); PLATELET COUNT, AUTOMATED 112 10^3/uL (150-450)
[2025-05-05 06:24] LABS: CALCIUM LEVEL 7.0 MG/DL (8.3-10.6); CARBON DIOXIDE LEVEL 25.0 MMOL/L (20-31); CHLORIDE LEVEL 102.0 MMOL/L (98-107); CREATININE FOR GFR 1.05 MG/DL (0.55-1.30); GLOMERULAR FILTRATION RATE 52.4 (>32); MAGNESIUM LEVEL 1.6 MG/DL (1.8-2.4); POTASSIUM SERUM 3.3 MMOL/L (3.5-5.1); SODIUM LEVEL 138.0 MMOL/L (136-145)
[2025-05-05] MEDS: POTASSIUM CHLORIDE 10% LIQ 20MEQ/15ML UDC PO ONE (08:24)
[2025-05-05] MEDS: MAG SULF 1GM/100ML (MAG RUN) 1 GM in IV 1 EA IV ONE (08:25)
[2025-05-05] MEDS: LIDOCAINE 5% PATCH TD SCH (10:25)
[2025-05-05 15:29] LABS: C REACTIVE PROTEIN QUANTITATIV 9.49 MG/DL (<1.0)
[2025-05-06] VITALS (8 sets, daily range): BP systolic 110–164; BP diastolic 55–93; TEMP 97–98.1; O2SAT 97–99
[2025-05-06 05:19] LABS: BASO # 0.0 10^3/uL (0.0-0.2); BASO % 0.1 % (0.0-1.0); EOS # 0.0 10^3/uL (0.0-0.5); EOS % 0.1 % (0.0-3.0); LYMPH # 0.6 10^3/uL (1.5-5.0); LYMPH % 7.9 % (24.0-44.0); MONO # 0.5 10^3/uL (0.0-0.8); MONO % 7.5 % (2.0-8.0); NEUTROPHILS # 6.0 10^3/uL (1.5-8.5); NEUTROPHILS % 84.1 % (36.0-66.0); PLATELET COUNT, AUTOMATED 119 10^3/uL (150-450)
[2025-05-06 05:46] LABS: CALCIUM LEVEL 7.1 MG/DL (8.3-10.6); CARBON DIOXIDE LEVEL 26.0 MMOL/L (20-31); CHLORIDE LEVEL 104.0 MMOL/L (98-107); CREATININE FOR GFR 0.94 MG/DL (0.55-1.30); GLOMERULAR FILTRATION RATE 59.8 (>32); MAGNESIUM LEVEL 1.8 MG/DL (1.8-2.4); POTASSIUM SERUM 3.8 MMOL/L (3.5-5.1); SODIUM LEVEL 138.0 MMOL/L (136-145)
[2025-05-06 10:55] LABS: C REACTIVE PROTEIN QUANTITATIV 8.01 MG/DL (<1.0)
[2025-05-06] MEDS: ACETAMINOPHEN 325 MG TAB PO PRN (11:40)
[2025-05-06] MEDS: METOPROLOL 5 MG/5 ML VIAL IV STA (17:34)
[2025-05-06] MEDS: CYCLOBENZAPRINE 5 MG TABLET PO SCH (21:23)
[2025-05-06] MEDS: APIXABAN 2.5 MG TAB PO SCH (21:23)
[2025-05-07 03:46] VITALS: BP 128/81; TEMP 97.8; O2SAT 96
[2025-05-07 05:45] LABS: BASO # 0.0 10^3/uL (0.0-0.2); BASO % 0.1 % (0.0-1.0); EOS # 0.1 10^3/uL (0.0-0.5); EOS % 0.7 % (0.0-3.0); LYMPH # 1.1 10^3/uL (1.5-5.0); LYMPH % 15.7 % (24.0-44.0); MONO # 0.8 10^3/uL (0.0-0.8); MONO % 12.5 % (2.0-8.0); NEUTROPHILS # 4.7 10^3/uL (1.5-8.5); NEUTROPHILS % 70.6 % (36.0-66.0); PLATELET COUNT, AUTOMATED 124 10^3/uL (150-450)
[2025-05-07 06:15] LABS: CALCIUM LEVEL 7.3 MG/DL (8.3-10.6); CARBON DIOXIDE LEVEL 27.0 MMOL/L (20-31); CHLORIDE LEVEL 102.0 MMOL/L (98-107); CREATININE FOR GFR 0.95 MG/DL (0.55-1.30); GLOMERULAR FILTRATION RATE 59.1 (>32); MAGNESIUM LEVEL 1.6 MG/DL (1.8-2.4); POTASSIUM SERUM 3.9 MMOL/L (3.5-5.1); SODIUM LEVEL 136.0 MMOL/L (136-145)
[2025-05-07 08:02] VITALS: BP 122/71; TEMP 97.8; O2SAT 96
[2025-05-07] MEDS: MAG SULF 1GM/100ML (MAG RUN) 1 GM in IV 1 EA IV SCH (08:51)
[2025-05-07] MEDS: METOPROLOL SUCC *XL* 12.5 MG PER 1/2 TAB PO SCH ×2 (08:52→20:24)
[2025-05-07] MEDS: CYCLOBENZAPRINE 5 MG TABLET PO ONE (10:27)
[2025-05-07] MEDS ORDERED: LEVO75TAB PO (10:32)
[2025-05-07] MEDS ORDERED: METO1TAB32 PO (10:32)
[2025-05-07] MEDS ORDERED: CYCL5TAB4 PO ×2 (10:32→11:03)
[2025-05-07 12:16] VITALS: BP 127/78; TEMP 97.6; O2SAT 97
[2025-05-07 16:25] VITALS: BP 123/70; TEMP 97.7
[2025-05-07] MEDS: GABAPENTIN 100 MG CAP PO SCH (17:25)
[2025-05-07 19:55] VITALS: BP 92/52; TEMP 97.2; O2SAT 99
[2025-05-07] MEDS: CYCLOBENZAPRINE 10 MG TABLET PO SCH (21:14)
[2025-05-08] MEDS: ACETAMINOPHEN 500 MG TAB PO SCH
[2025-05-08 04:28] VITALS: BP_SYST 88; BP_SYST 98; BP_DIAS 67; TEMP 97.5; O2SAT 97
[2025-05-08 06:21] LABS: CALCIUM LEVEL 7.2 MG/DL (8.3-10.6); CARBON DIOXIDE LEVEL 30.0 MMOL/L (20-31); CHLORIDE LEVEL 101.0 MMOL/L (98-107); CREATININE FOR GFR 1.28 MG/DL (0.55-1.30); GLOMERULAR FILTRATION RATE 41.3 (>32); MAGNESIUM LEVEL 2.1 MG/DL (1.8-2.4); POTASSIUM SERUM 4.0 MMOL/L (3.5-5.1); SODIUM LEVEL 137.0 MMOL/L (136-145)
[2025-05-08 06:22] LABS: BASO # 0.0 10^3/uL (0.0-0.2); BASO % 0.1 % (0.0-1.0); EOS # 0.1 10^3/uL (0.0-0.5); EOS % 1.6 % (0.0-3.0); LYMPH # 1.4 10^3/uL (1.5-5.0); LYMPH % 20.3 % (24.0-44.0); MONO # 1.0 10^3/uL (0.0-0.8); MONO % 13.6 % (2.0-8.0); NEUTROPHILS # 4.5 10^3/uL (1.5-8.5); NEUTROPHILS % 64.0 % (36.0-66.0); PLATELET COUNT, AUTOMATED 106 10^3/uL (150-450)
[2025-05-08] MEDS: PANTOPRAZOLE 40MG TAB PO SCH (08:12)
[2025-05-08 09:02] LABS: TOTAL 25(OH) VITAMIN D 29.0 NG/ML (20.0-100.0)
[2025-05-08 12:00] VITALS: BP 104/61; TEMP 97.1; O2SAT 100
[2025-05-08] MEDS: DIGOXIN 0.125 MG TAB PO SCH (14:13)
[2025-05-08] MEDS ORDERED: CYCL10TA20 PO (15:54)
[2025-05-08] MEDS ORDERED: GABA-1171 PO (15:54)
[2025-05-08 20:14] VITALS: BP 101/63; TEMP 97.7; O2SAT 94
[2025-05-09 00:49] VITALS: BP 91/50; TEMP 97.6; O2SAT 96
[2025-05-09 05:04] VITALS: BP 94/58; TEMP 98.1; O2SAT 98
[2025-05-09 06:36] LABS: BASO # 0.0 10^3/uL (0.0-0.2); BASO % 0.3 % (0.0-1.0); EOS # 0.1 10^3/uL (0.0-0.5); EOS % 1.3 % (0.0-3.0); LYMPH # 1.0 10^3/uL (1.5-5.0); LYMPH % 14.4 % (24.0-44.0); MONO # 0.9 10^3/uL (0.0-0.8); MONO % 12.4 % (2.0-8.0); NEUTROPHILS # 5.1 10^3/uL (1.5-8.5); NEUTROPHILS % 71.2 % (36.0-66.0); PLATELET COUNT, AUTOMATED 100 10^3/uL (150-450)
[2025-05-09 07:01] LABS: CALCIUM LEVEL 7.6 MG/DL (8.3-10.6); CARBON DIOXIDE LEVEL 26.0 MMOL/L (20-31); CHLORIDE LEVEL 103.0 MMOL/L (98-107); CREATININE FOR GFR 1.22 MG/DL (0.55-1.30); GLOMERULAR FILTRATION RATE 43.8 (>32); MAGNESIUM LEVEL 2.0 MG/DL (1.8-2.4); POTASSIUM SERUM 4.7 MMOL/L (3.5-5.1); SODIUM LEVEL 138.0 MMOL/L (136-145)
[2025-05-09 07:49] VITALS: BP 109/60; TEMP 97.6; O2SAT 99
[2025-05-09 09:28] VITALS: BP 109/60
== END 2025-05-09 10:00 | disposition home or self-care (01) | DRG 660 ==
LOC: M ED 11:32 → M ED INP 18:25 → M PCU 20:28
PROVIDERS: ADMIT Internal Medicine; ATTEND Internal Medicine
PROC: 0T29X0Z Change Drainage Device in Ureter, External Approach (ICD-10-PCS; 2025-05-04)
PROC: 0T9 Urinary System, Drainage (ICD-10-PCS; principal; 2025-05-04 13:00)
DX: N17.9 Acute kidney failure, unspecified (principal); E87.20 Acidosis, unspecified; I50.22 Chronic systolic (congestive) heart failure; K94.19 Other complications of enterostomy; N39.0 Urinary tract infection, site not specified; N13.4 Hydroureter; M84.48XD Pathological fracture, other site, subsequent encounter for fracture with routine healing; N13.1 Hydronephrosis with ureteral stricture, not elsewhere classified; N18.30 Chronic kidney disease, stage 3 unspecified; E87.5 Hyperkalemia; D69.6 Thrombocytopenia, unspecified; E05.90 Thyrotoxicosis, unspecified without thyrotoxic crisis or storm; I48.91 Unspecified atrial fibrillation; R00.0 Tachycardia, unspecified; M54.50 Low back pain, unspecified; K21.9 Gastro-esophageal reflux disease without esophagitis; K43.5 Parastomal hernia without obstruction or gangrene; E83.42 Hypomagnesemia; E87.6 Hypokalemia; Z90.49 Acquired absence of other specified parts of digestive tract; Z98.41 Cataract extraction status, right eye; Z79.01 Long term (current) use of anticoagulants; Z79.899 Other long term (current) drug therapy; Z85.51 Personal history of malignant neoplasm of bladder; Z95.3 Presence of xenogenic heart valve; Z98.42 Cataract extraction status, left eye

== ENCOUNTER → 2025-05-09 | Outpatient (CLI) | payer MEDICARE ==
[~2025-05-09] MED LIST changes: +CYCL10TA20 PO; +CYCL5TAB4 PO; +GABA-1171 PO; +LEVO75TAB PO; +METO1TAB32 PO
== END ==
LOC: M EKG 10:09
PROVIDERS: ATTEND Internal Medicine
DX: I48.91 Unspecified atrial fibrillation (principal)